=== PATIENT | male | born 1945 | race Caucasian/White ===

== ENCOUNTER 2017-07-17 17:31 | Inpatient (IN) ==
[2017-07-17] MEDS ORDERED: Ondansetron 4 MG/2 ML VIAL IVP PRN (22:14)
[2017-07-17] MEDS ORDERED: *HR* Metoprolol 5 MG/5 ML VIAL IVP PRN (22:27)
--- NOTE | 2017-07-17 22:30 | General Surg History&Physical ---
Date of Encounter: 07/17/17 Time of Encounter: 22:30 Assessment and Plan (1) Acute cholecystitis Current Visit: Yes Status: Acute 71M with acute cholecystitis; non peritoneal, but (+)jones's sign; - NPO -IVF: d51/2NS+20K - abx: zosyn - dilaudid for pain control - activity as tolerated - strict I/O The assessment and plan as outlined above was discussed with the patient and/or family members who expressed understanding and agreement. All questions were answered. (2) Cholelithiasis Current Visit: Yes Status: Acute see above The assessment and plan as outlined above was discussed with the patient and/or family members who expressed understanding and agreement. All questions were answered. 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 All questions were answered. Qualifiers: DVT location: lower extremity Affected thrombotic vein of extremity: unspecified vein of extremity Chronicity: unspecified Laterality: bilateral Qualified Code(s): I82.403 - Acute embolism and thrombosis of unspecified deep veins of lower extremity, bilateral (4) DVT prophylaxis Current Visit: Yes Status: Acute ambulation scds give heparin gtt once INR @ 1.5 The assessment and plan as outlined above was discussed with the patient and/or family members who expressed understanding and agreement. All questions were answered. (5) Crohns disease Current Visit: Yes Status: Acute consult GI for management of crohn's disease, specificallyi regarding timing of crohn's medications or if they should be restarted after this hospital admission ; The assessment and plan as outlined above was discussed with the patient and/or family members who expressed understanding and agreement. All questions were answered. Qualifiers: Gastrointestinal tract location: unspecified location Digestive disease complication type: without complication Qualified Code(s): K50.90 - Crohn's disease, unspecified, without complications (6) HTN (hypertension) Current Visit: Yes Status: Acute give IV lopressor 5mg q6; give for SBP >150, hold for SBP <100, HR <60 The assessment and plan as outlined above was discussed with the patient and/or family members who expressed understanding and agreement. All questions were answered. Qualifiers: Hypertension type: essential hypertension Qualified Code(s): I10 - Essential (primary) hypertension (7) HLD (hyperlipidemia) Current Visit: Yes Status: Acute restart home meds The assessment and plan as outlined above was discussed with the patient and/or family members who expressed understanding and agreement. All questions were answered. Qualifiers: Hyperlipidemia type: unspecified Qualified Code(s): E78.5 - Hyperlipidemia , unspecified History of Present Illness Chief complaint: abdominal pain HPI: Mr. Bowers is a 71 year old male with PMH significant for DVT, HTN, HLD who presents with a week history of worsening abdominal pain localized to the epigastrium and RUQ. The pain has been ongoing without nausea or vomiting, but it is associated with anorexia. He is unable to identify any alleviating or exacerbating factors. No reports of fevers, chills, shortness of breath or chest pain. His last bowel movement was one day prior to admission. He cannot recall a prior episode like this. A Ct scan was ordered which was personally reviewed and interpreted by me. There are inflammatory changes around the gallbladder and cholelithiasis. Past Med Surg Social Fam HX - Past Medical History Medical history: DVT (multiple episodes requiring coumadin), hyperlipidemia, hypertension, other (Crohn's disease) Psychiatric history: no psych history - Past Surgical History Surgical History: no surgical history, other (multiple small bowel resections 2/ 2 crohn's disease) - Social History Smoking Status: Never smoker Smokeless Tobacco Status: No Alcohol use: none Drug use: none - Additional Family History Additional family history: non contributory Medications and Allergies Alendronate Sodium [Fosamax] 70 mg PO QWEEK 07/01/17 [History] Alendronate Sodium [Fosamax] 70 mg PO QWEEK 07/01/17 [History] Atorvastatin [Lipitor] 40 mg PO HS 07/01/17 [History] Budesonide [Entocort EC] 3 mg PO 07/01/17 [History] Cyanocobalamin (B-12) [Vitamin B12] 1,000 mcg IM 07/01/17 [History] InFLIXimab [Remicade] 100 mg IVPB 07/01/17 [History] Lisinopril-HCTZ 10-12.5 [Prinzide 10-12.5] 1 each PO 07/01/17 [History] Metoprolol Succinate 25 mg PO 07/01/17 [History] Multivit-Min/FA/Lycopen/Lutein [A Thru Z Select Multivit Tab] 1 each PO [History] Potassium Chloride [Klor-Con 10] 10 meq PO 07/01/17 [History] Ranitidine HCl [Zantac] 150 mg PO 07/01/17 [History] Warfarin [Coumadin] 2.5 mg PO 07/01/17 [History] 3 Allergy/AdvReac Type Severity Reaction Status Date / Time No Known Allergies Allergy Verified 07/01/17 13:44 Review of Systems All systems PM: A 10-system review of systems was performed and is negative for pertinent findings except as documented above in the HPI. General Surgery Exam pending - General physical appearance well developed, well nourished, no distress - Eyes other (no scleral icterus) - ENT normocephalic - Neck no lymphadectomy - Respiratory normal expansion, normal respiratory effort, clear to auscultation - Cardiovascular Cardiovascular exam: Present: RRR - Abdomen Abdomen general surgery: Present: soft, tender (non peritoneal; ) Abdominal Tenderness: Present: epigastic, RUQ ((+)jones's sign) Hernia: Present: none - Neurologic Present: CN 2-12 grossly intact - Psychiatric Psychiatric general surgery: Present: A&Ox3 Results - Labs All other labs normal. - Imaging CT scan - abdomen: report reviewed, image reviewed ((+)cholelithiasis, inflammatory changes aroudn gallbladder; no evidence of biliary duct dilitation) CT scan - pelvis: report reviewed, image reviewed
[2017-07-17] MEDS: *HR* HYDROmorphone (PF) 1 MG/ML SYRINGE IVP PRN (23:07)
[2017-07-17] MEDS: D5% in 0.45% NACL w KCl 20 MEQ/1,000 ML MLS IVC SCH (23:10)
[2017-07-17] MEDS: Piperacillin/Tazobactam 3.375 GM in D5% in Water (Mini-Bag+) 100 ML IVPB SCH (23:17)
[2017-07-18 00:08] LABS: INR 3.8; Prothrombin Time 41.9 Seconds (9.4-12.1)
[2017-07-18] MEDS ORDERED: 0.9 % Sodium Chloride 250 ML ONE ×4 (01:17→16:32)
[2017-07-18] MEDS: *HR* HYDROmorphone (PF) 1 MG/ML SYRINGE IVP PRN ×4 (02:36→23:19)
[2017-07-18 05:06] LABS: Basophils % 0.3 %; Eosinophils % 0.2 %; Hematocrit 42.5 % (37.5-50.1); Hemoglobin 13.7 g/dL (12.9-16.9); Immature Granulocytes % 0.8 % (0-4); Lymphocytes # 0.9 K/mcL (0.6-4.6); Lymphocytes % 7.8 %; Mean Corpuscular HGB Conc 32.2 g/dL (31.6-35.5); Mean Corpuscular Hemoglobin 29.2 pg (28.0-33.3); Mean Corpuscular Volume 90.6 fL (83.0-100.0); Mean Platelet Volume 9.9 fL (9.4-12.4); Monocytes # 1.8 K/mcL (0.0-1.3); Monocytes % 14.8 %; Platelet Count 217 K/mcL (140-400); Red Blood Count 4.69 M/mcL (4.19-5.50); Red Cell Distribution Width 14.3 % (11.5-14.5); Segmented Neutrophils % 76.1 %
[2017-07-18 05:20] LABS: Albumin 2.9 g/dL (3.5-5.0); Albumin/Globulin Ratio 0.6 (1.1-2.2); Bilirubin,Direct 2.8 mg/dL (0.0-0.5); Bilirubin,Indirect 1.1 mg/dL (0.0-1.2); Bilirubin,Total 3.9 mg/dL (0.2-1.2); Globulin 4.6 g/dL (2.4-3.5); Total Protein 7.5 g/dL (6.0-8.3)
[2017-07-18] MEDS: Pantoprazole 40 MG VIAL IVP SCH (06:53)
[2017-07-18 08:18] LABS: INR 2.2; Prothrombin Time 24.1 Seconds (9.4-12.1)
[2017-07-18] MEDS: Piperacillin/Tazobactam 3.375 GM in D5% in Water (Mini-Bag+) 100 ML IVPB SCH ×2 (09:55→20:12)
[2017-07-18] MEDS: D5% in 0.45% NACL w KCl 20 MEQ/1,000 ML MLS IVC SCH (09:56)
[2017-07-18 10:44] LABS: INR 2.1; Prothrombin Time 22.8 Seconds (9.4-12.1)
[2017-07-18] MEDS ORDERED: Furosemide 40 MG/4 ML VIAL IVP ONE (11:37)
--- NOTE | 2017-07-18 12:12 | General Surgery Progress Note ---
<Gianna Toro - Last Filed: 07/18/17 13:17> Date of Encounter: 07/18/17 Time of Encounter: 12:09 - Assessment and Plan (1) Acute cholecystitis Current Visit: Yes Status: Acute Patient is complaining of right upper quadrant pain and nausea and vomiting. WBC = 11.8, Tbili = 3.9, AST 338, aLT 218, Alk phos 271. CT scan of abdomen and pelvis showed cholelithiasis and distended gallbladder. Patient has been afebrile but tachycardic and blood pressure has been elevated maximum of 175/ 103. Plans for cholecystectomy when INR decreases to ~ 1.5. INR = 2.1. Currently giving FFP to decrease INR. Cardiovascular risk: He denies shortness of breath or chest pain with climbing 2 flights of stairs or walking two blocks. METs>4. Patient has no known cardiovascular disease. Stress test 3- 4 years ago was negative. Plans: - RUQ US pending results - IVF: d51/2NS+20K - abx: zosyn - dilaudid for pain control - activity as tolerated - strict I/O - surgery pending INR decrease (2) Cholelithiasis Current Visit: Yes Status: Acute See above Qualifiers: Cholelithiasis location: gallbladder Cholecystitis presence: with cholecystitis Cholecystitis acuity: acute Biliary obstruction: without biliary obstruction Qualified Code(s): K80.00 - Calculus of gallbladder with acute cholecystitis without obstruction (3) DVT (deep venous thrombosis) Current Visit: Yes Status: Acute Prior histry of DVTs on coumadin. Plan: - holding coumadin - give FFP; aim for INR ~ 1.5 - start heparin once at goal - will plan to hold heparin 4-6 hours prior to surgery - SCDs Qualifiers: DVT location: lower extremity Affected thrombotic vein of extremity: unspecified vein of extremity Chronicity: unspecified Laterality: bilateral Qualified Code(s): I82.403 - Acute embolism and thrombosis of unspecified deep veins of lower extremity, bilateral (4) DVT prophylaxis Current Visit: Yes Status: Acute ambulation, scds, give heparin gtt once INR @ 1.5 (5) Crohns disease Current Visit: Yes Status: Acute consult GI for management of crohn's disease, specifically regarding timing of crohn's medications or if they should be restarted after this hospital admission. Qualifiers: Gastrointestinal tract location: unspecified location Digestive disease complication type: without complication Qualified Code(s): K50.90 - Crohn's disease, unspecified, without complications (6) HTN (hypertension) Current Visit: Yes Status: Acute give IV lopressor 5mg q6; give for SBP >150, hold for SBP <100, HR <60 Qualifiers: Hypertension type: essential hypertension Qualified Code(s): I10 - Essential (primary) hypertension (7) HLD (hyperlipidemia) Current Visit: Yes Status: Acute restart home meds Qualifiers: Hyperlipidemia type: unspecified Qualified Code(s): E78.5 - Hyperlipidemia , unspecified Subjective Narrative: Patient is a 71-year-old male presented to the ED with right upper quadrant pain and nausea and vomiting and found to have acute cholecystitis. Today patient is still having nausea and vomiting. During his RUQ ultrasound this morning, he had an episode of emesis. Currently patient's pain is under control. Objective Vital Signs - Last 8 Hours Temp Pulse Resp BP Pulse Ox 07/18/17 10:50 99.3 F 109 17 153/92 93 07/18/17 09:44 109 07/18/17 09:42 99.4 F 20 142/75 94 07/18/17 07:42 99.3 F 87 17 175/103 95 07/18/17 06:16 98.9 F Intake and Output 07/17/17 07/18/17 07/18/17 23:59 07:59 15:59 Intake Total 250 / 250 850 / 850 1250 / 1250 Output Total 825 / 825 0 / 0 0 / 0 Balance -575 / -575 850 / 850 1250 / 1250 Intake: IV Fluids 100 / 100 1000 / 1000 KCl 20mEq IN D5%-0.45 NACL 20 1000 / 1000 meq In 1,000 ml @ 100 mls/hr IVC .Q10H [facility] Rx#:[id number] Zosyn 3.375 GM In Dextrose 5% ( 100 / 100 Minibag+) 100 ML 100 ML @ 25 mls/hr IVPB Q8HR [facility] Rx#: [id number] Oral 0 / 0 0 / 0 0 / 0 Blood Product 750 / 750 250 / 250 Plasma Unit [id number] 500 / 500 Plasma Unit [id number] 250 / 250 250 / 250 Intake, Autotransfusion Amount 250 / 250 Output: Urine 825 / 825 0 / 0 0 / 0 Stool 0 / 0 Other: Weight 81.9 kg 82.185 kg Blood Glucose* 131 172 Patient Weight 07/18/17 23:59 Weight 82.185 kg - Additional Exam Constitutional: Alert, in no acute distress, well nourished, well developed. Head: Normocephalic, atraumatic, normal contour and symmetric, no masses, lesions or scars Heart: Normal, regular rate and rhythm, no murmurs Lungs: Clear to auscultation, no wheezes, rales, or rhonchi Abdomen: RUQ pain, + jones's sign, non-tender in other quadrants, Soft, nondistended, and no masses palpable, bowel sounds present and normal, no guarding or rigidity. Extremities: No clubbing, cyanosis, or edema, radial pulse +2/4, capillary refill <2sec. Skin: Skin warm and dry, no lesions, no rashes, no jaundice Neurologic: Cranial nerves II through XII grossly intact, no focal deficits, strength within normal limits in all extremities Psych: Cooperative with exam, good eye contact, cognitive function intact, judgment good insight good, speech clear, thought process logical, and goal directed - Labs 07/18/17 04:44 Diabetes panel 07/18/17 Range/Units 04:44 AST 338 H (5-34) Units/L ALT 218 H (0-55) Units/L Alkaline Phosphatase 271 H (38-126) Units/L Albumin 2.9 L (3.5-5.0) g/dL Calcium panel 07/18/17 Range/Units 04:44 Albumin 2.9 L (3.5-5.0) g/dL Adrenal panel 07/18/17 Range/Units 04:44 Total Bilirubin 3.9 H D (0.2-1.2) mg/dL AST 338 H (5-34) Units/L ALT 218 H (0-55) Units/L Alkaline Phosphatase 271 H (38-126) Units/L Albumin 2.9 L (3.5-5.0) g/dL Consult Discharge Plan - Plan Referrals: Nicolas Hagan MD [Primary Care Provider] - <Blu Sawyer - Last Filed: 07/19/17 08:12> Date of Encounter: 07/19/17 - Assessment and Plan (1) Acute cholecystitis Current Visit: Yes Status: Inactive (2) Cholelithiasis Current Visit: Yes Status: Inactive Qualifiers: Cholelithiasis location: gallbladder Cholecystitis presence: with cholecystitis Cholecystitis acuity: acute Biliary obstruction: without biliary obstruction Qualified Code(s): K80.00 - Calculus of gallbladder with acute cholecystitis without obstruction (3) DVT (deep venous thrombosis) Current Visit: Yes Status: Acute Qualifiers: DVT location: lower extremity Affected thrombotic vein of extremity: unspecified vein of extremity Chronicity: unspecified Laterality: bilateral Qualified Code(s): I82.403 - Acute embolism and thrombosis of unspecified deep veins of lower extremity, bilateral (4) DVT prophylaxis Current Visit: Yes Status: Acute (5) Crohns disease Current Visit: Yes Status: Acute Qualifiers: Gastrointestinal tract location: unspecified location Digestive disease complication type: without complication Qualified Code(s): K50.90 - Crohn's disease, unspecified, without complications (6) HTN (hypertension) Current Visit: Yes Status: Acute Qualifiers: Hypertension type: essential hypertension Qualified Code(s): I10 - Essential (primary) hypertension (7) HLD (hyperlipidemia) Current Visit: Yes Status: Acute Qualifiers: Hyperlipidemia type: unspecified Qualified Code(s): E78.5 - Hyperlipidemia , unspecified Objective Vital Signs - Last 8 Hours Temp Pulse Resp BP Pulse Ox 07/19/17 06:45 98.2 F 84 18 138/73 94 07/19/17 03:30 98.1 F 91 18 148/81 93 Intake and Output 07/18/17 07/19/17 07/19/17 23:59 07:59 15:59 Intake Total 1500 / 1500 100 / 100 Output Total 300 / 300 0 / 0 Balance 1200 / 1200 100 / 100 Intake: IV Fluids 1000 / 1000 100 / 100 KCl 20mEq IN D5%-0.45 NACL 20 1000 / 1000 meq In 1,000 ml @ 100 mls/hr IVC .Q10H [facility] Rx#:[id number] Zosyn 3.375 GM In Dextrose 5% ( 100 / 100 Minibag+) 100 ML 100 ML @ 25 mls/hr IVPB Q8H [facility] Rx#: [id number] Oral 0 / 0 0 / 0 Blood Product 500 / 500 Plasma Unit [id number] 250 / 250 Plasma Unit [id number] 250 / 250 Output: Urine 300 / 300 0 / 0 Other: Meal NPO Weight 80.286 kg Blood Glucose* 166 155 Patient Weight 07/19/17 23:59 Weight 80.286 kg - Labs 07/18/17 04:44 07/18/17 17:40 Diabetes panel 07/18/17 Range/Units 17:40 Sodium 141 (136-145) mEq/L Potassium 3.5 (3.5-4.5) mEq/L Chloride 100 (98-109) mEq/L Carbon Dioxide 29 (19-29) mEq/L BUN 15 (8-26) mg/dL Creatinine 1.46 H (0.72-1.25) mg/dL Glucose 145 H (70-99) mg/dL Calcium 9.5 (8.6-10.8) mg/dL Calcium panel 07/18/17 Range/Units 17:40 Calcium 9.5 (8.6-10.8) mg/dL Pituitary panel 07/18/17 Range/Units 17:40 Sodium 141 (136-145) mEq/L Potassium 3.5 (3.5-4.5) mEq/L Chloride 100 (98-109) mEq/L Carbon Dioxide 29 (19-29) mEq/L BUN 15 (8-26) mg/dL Creatinine 1.46 H (0.72-1.25) mg/dL Glucose 145 H (70-99) mg/dL Calcium 9.5 (8.6-10.8) mg/dL Adrenal panel 07/18/17 Range/Units 17:40 Sodium 141 (136-145) mEq/L Potassium 3.5 (3.5-4.5) mEq/L Chloride 100 (98-109) mEq/L Carbon Dioxide 29 (19-29) mEq/L BUN 15 (8-26) mg/dL Creatinine 1.46 H (0.72-1.25) mg/dL Glucose 145 H (70-99) mg/dL Calcium 9.5 (8.6-10.8) mg/dL - Attending Attestation I have personally seen and examined the patient. I have reviewed pertinent labs , imaging, progress notes, including this one. I agree with the above assessment and plan and wish to include the following... 71M with PMH significant DVT on coumadin, crohn's disease and on medication related to disease with acute cholecystitis; Abdomen is soft, non distended, but with discomfort at epigastric region. non peritoneal on exam; INR still within therapeutic range; will give more FFP; once patient is below two, then can switch to heparin gtt; will allow patient to drift to 1.7 before scheduling a definitive surgery date; will also contact GI concerning timing of crohn's medications or if it is okay to hold them for time being;
[2017-07-18] MEDS ORDERED: Ondansetron 4 MG/2 ML VIAL IVP ONE (14:58)
[2017-07-18] MEDS ORDERED: *HR* Promethazine 25 MG/ML VIAL IVP PRN (14:58)
[2017-07-18] MEDS: Ondansetron 4 MG/2 ML VIAL IVP SCH ×2 (17:45→20:13)
[2017-07-18 18:03] LABS: Prothrombin Time 21.6 Seconds (9.4-12.1)
[2017-07-18 18:12] LABS: Calcium 9.5 mg/dL (8.6-10.8); Potassium 3.5 mEq/L (3.5-4.5)
[2017-07-18 22:06] LABS: Prothrombin Time 21.6 Seconds (9.4-12.1)
[2017-07-19] MEDS: Ondansetron 4 MG/2 ML VIAL IVP SCH ×8 (00:11→23:20)
[2017-07-19] MEDS: Piperacillin/Tazobactam 3.375 GM in D5% in Water (Mini-Bag+) 100 ML IVPB SCH ×2 (03:29→10:34)
[2017-07-19] MEDS: D5% in 0.45% NACL w KCl 20 MEQ/1,000 ML MLS IVC SCH ×2 (04:16→21:42)
[2017-07-19] MEDS: Pantoprazole 40 MG VIAL IVP SCH (05:34)
[2017-07-19 09:09] LABS: Basophils % 0.3 %; Eosinophils # 0.1 K/mcL (0.0-0.6); Eosinophils % 1.5 %; Hematocrit 34.6 % (37.5-50.1); Immature Granulocytes % 0.5 % (0-4); Lymphocytes # 0.8 K/mcL (0.6-4.6); Mean Corpuscular HGB Conc 32.9 g/dL (31.6-35.5); Mean Corpuscular Hemoglobin 30.6 pg (28.0-33.3); Mean Corpuscular Volume 92.8 fL (83.0-100.0); Platelet Count 177 K/mcL (140-400); Red Blood Count 3.73 M/mcL (4.19-5.50); Red Cell Distribution Width 14.1 % (11.5-14.5); Segmented Neutrophils % 74.7 %
[2017-07-19 09:13] LABS: Hemoglobin 11.4 g/dL (12.9-16.9)
[2017-07-19 09:21] LABS: Albumin 2.5 g/dL (3.5-5.0); Albumin/Globulin Ratio 0.6 (1.1-2.2); Bilirubin,Total 3.1 mg/dL (0.2-1.2); Calcium 8.6 mg/dL (8.6-10.8); Globulin 4.3 g/dL (2.4-3.5); Potassium 3.2 mEq/L (3.5-4.5); Total Protein 6.8 g/dL (6.0-8.3)
[2017-07-19 09:23] LABS: INR 2.3; Prothrombin Time 24.7 Seconds (9.4-12.1)
--- NOTE | 2017-07-19 10:55 | Gastroenterology Consult Note ---
<Marycruz Hernández - Last Filed: 07/19/17 11:45> Date of Encounter: 07/19/17 Time of Encounter: 10:00 - Assessment and plan (1) Crohns disease Current Visit: Yes Status: Acute Assessment and plan: Pt has long standing history of Crohn's disease, status post bowel resection x 2 (last 1996). He is on remicaide and entocort at home and has been well controlled. He denies recent flares. He is followed by Dr Salter at [facility]. Would continue home meds. Qualifiers: Gastrointestinal tract location: unspecified location Digestive disease complication type: without complication Qualified Code(s): K50.90 - Crohn's disease, unspecified, without complications (2) Cholelithiasis Current Visit: Yes Status: Acute Assessment and plan: Surgery consulted awaiting INR <2. Bilirubin is elevated 3.9 as is AST and ALT will order MRCP, may need ERCP if CBD stone. Qualifiers: Cholelithiasis location: gallbladder Cholecystitis presence: with cholecystitis Cholecystitis acuity: acute Biliary obstruction: without biliary obstruction Qualified Code(s): K80.00 - Calculus of gallbladder with acute cholecystitis without obstruction - Time Spent With Patient Total time spent is greater than 50% in coordination of care (as documented) at patient's floor/unit and/or counseling patient: GI History of Present Illness - Data of Consult Patient: new to practice Consult date: 07/19/17 Requesting Physician: Blu Sawyer MD - Consult Narrative Reason for consult: Crohn's History of present illness: Mr. Bowers is a 71 year old male who presented with complaints of right upper quadrant pain and nausea and vomiting. CT scan of abdomen and pelvis showed cholelithiasis and distended gallbladder. Ultrasound showed cholelithiasis. General surgery was consulted for cholecystectomy, waiting for INR to drop around 1.5. He is on coumadin for a history of DVTs. WBC= 11.8, Tbili = 3.9, AST 338, aLT 218, Alk phos 271. He has Crohn's treated by Dr Salter. He is on Remicade, last dose 6 weeks ago, and entocort. He denies any recent flares. He reports 2-3 bm daily but none since Tuesday. He denies any bloody or black stools. He denies any fever. He uses zantac prn for GERD, denies any dysphagia. Colonoscopy: 2010 ([facility]) EGD: denies NSAIDS/ASA: rarely takes prn Anticoagulants: none Past Med Surg Social Fam HX - Past Medical History Medical history: DVT, hyperlipidemia, hypertension, other Psychiatric history: no psych history - Past Surgical History Surgical History: no surgical history, other - Social History Smoking Status: Never smoker Smokeless Tobacco Status: No Alcohol use: none Drug use: none - Family History Mother Adopted: No Family Member Ethnicity: Non- Living Status: Age at : 79 Hx Family Cardiac Disorders: Yes (hypertension) Hx Family Respiratory Disorders: No Hx Family Cancer: No Hx Family GI Disorders: No Hx Family Genitourinary Disorders: No Hx Family Endocrine Disorder: No Hx Family Musculoskeletal Disorders: No Hx Family Neuromuscular Disorders: No Hx Family Neurologic Disorders: No Hx Family HEENT Disorders: No Hx Family Autoimmune Disorders: No Hx Family Reproductive Disorders: No Hx Family Psychosocial Disorders: No Hx Family Medical Disorders: No Father Adopted: No Family Member Ethnicity: Non- Living Status: Age at : 65 Cause of : heart attack Hx Family Cardiac Disorders: Yes Hx Family Respiratory Disorders: No Hx Family Cancer: No Hx Family GI Disorders: No Hx Family Genitourinary Disorders: No Hx Family Endocrine Disorder: No Hx Family Musculoskeletal Disorders: No Hx Family Neuromuscular Disorders: No Hx Family Neurologic Disorders: No Hx Family HEENT Disorders: No Hx Family Autoimmune Disorders: No Hx Family Reproductive Disorders: No Hx Family Psychosocial Disorders: No Hx Family Medical Disorders: No Review of Systems: GI: as per [place] GENERAL: denies fever, or chills EYES: denies yellow discoloration ENT: denies pain with swallowing or difficulty swallowing CARDIO: denies chest pain, palpitations RESP: No Shortness of breath with exertion : denies change in color of urine NEURO: denies any weakness HEME: Denies any bruising MS: chronic joint pain . DERM: denies rash or itching PSYCH: Denies history of anxiety or depression - Constitutional Vitals: Temp Pulse Resp BP Pulse Ox 98.1 F 87 14 126/69 95 07/19/17 10:19 07/19/17 10:19 07/19/17 10:19 07/19/17 10:19 07/19/17 10:19 Exam: CONSTITUTIONAL:~alert, no acute distress.~HEAD:~normocephalic.~EYES:~no jaundice.~NECK:~no obvious swelling.~HEART:~regular rate and rhythm, no murmurs. ~LUNGS:~bilateral good air entry.~ABDOMEN:~non distended, soft, diffuse tenderness, exquisite RUQ tenderness, no masses pulpable, no organomegaly.~ RECTAL EXAM:~Deferred.~EXTREMITIES:~no clubbing, cyanosis or edema.~SKIN:~no stigmata of chronic liver disease.~NEUROLOGIC:~no obvious focal defect.~~~~ Results - Labs CBC & Chem 7: 07/19/17 08:56 07/19/17 08:56 Labs: Last Result Calcium 8.6 mg/dL (8.6-10.8) 07/19/17 08:56 Entire Visit Hgb 11.4 g/dL (12.9-16.9) L D 07/19/17 08:56 Hct 34.6 % (37.5-50.1) L 07/19/17 08:56 PT 24.7 Seconds (9.4-12.1) H 07/19/17 08:56 Total Bilirubin 3.1 mg/dL (0.2-1.2) H 07/19/17 08:56 AST 354 Units/L (5-34) H 07/19/17 08:56 ALT 244 Units/L (0-55) H 07/19/17 08:56 - ABG ABG results: PT/INR, D-dimer PT 24.7 Seconds (9.4-12.1) H 07/19/17 08:56 - Impressions Impressions Gallbladder Ultrasound 07/18/17 11:00 IMPRESSION: Sonographic findings are suggestive of acute cholecystitis. Hepatic steatosis. D/ / Lennox Castellon / Lennox Castellon Interpreting Provider: Lennox Castellon Consult Discharge Plan - Plan Referrals: Nicolas Hagan MD [Primary Care Provider] - <Landen Hutchinson - Last Filed: 07/20/17 11:58> Date of Encounter: 07/20/17 - Time Spent With Patient Total time spent is greater than 50% in coordination of care (as documented) at patient's floor/unit and/or counseling patient: GI History of Present Illness - Data of Consult Requesting Physician: Blu Sawyer MD - Consult Narrative History of present illness: Mr. Bowers is a 71 year old male - Constitutional Vitals: Temp Pulse Resp BP Pulse Ox 98.7 F 80 16 143/79 95 07/20/17 11:00 07/20/17 07:03 07/20/17 11:00 07/20/17 11:00 07/20/17 11:00 Results - Labs CBC & Chem 7: 07/20/17 01:41 07/20/17 01:41 Labs: Last Result Calcium 8.5 mg/dL (8.6-10.8) L 07/20/17 01:41 Entire Visit Hgb 10.5 g/dL (12.9-16.9) L 07/20/17 01:41 Hct 32.3 % (37.5-50.1) L 07/20/17 01:41 PT 12.9 Seconds (9.4-12.1) H 07/20/17 01:41 Total Bilirubin 4.0 mg/dL (0.2-1.2) H 07/20/17 01:41 AST 291 Units/L (5-34) H 07/20/17 01:41 ALT 217 Units/L (0-55) H 07/20/17 01:41 - ABG ABG results: PT/INR, D-dimer PT 12.9 Seconds (9.4-12.1) H 07/20/17 01:41 - Impressions Impressions Abdomen MRI 07/19/17 11:42 IMPRESSION: 1. MRI findings continue to be consistent with acute cholecystitis as seen on CT dated 07/17/2017 and ultrasound dated 07/18/2017. Multiple stones are seen. Additionally, intrinsic high T1 signal intensity within the gallbladder is present which may represent hemorrhagic products. 2. No intra or extrahepatic biliary dilatation. No choledocholithiasis. 3. Trace right effusion. 4. Hepatic steatosis. D/ / 07/19/2017 14:15:20 Aimee Long MD / Vannessa Peck Interpreting Provider: Aimee Long MD - Attending Attestation Mr. Bowers presents with severe epigastric and now RUQ pain also past 3 days. The pain has abated this morning and patient has been NPO here. CT scan reveals a distended gallbladder with several stones. CBD normal on the slices seen. Patient has intrinsic liver disease - fatty liver suggested on CT but, patient has hx of alcohol in his younger years and given diabetes could have other liver diseases such as AIH etc. The elevated liver enzymes are due to the cholecystitis as we had ordered an MRCP and this revealed normal duct. There is no indication to do an ERCP at this time. An intraoperative cholangiogram can be done at [facility]. Will also need to have a liver biopsy done at cholecystectomy for diagnostic and prognostic purposes. Discussed this with patient and his . I attest that I personally interviewed and examined Mr. Bowers and reviewed his CT as well as MRCP studies Landen Hutchinson MD
--- NOTE | 2017-07-19 12:11 | General Surgery Progress Note ---
<Leticia Casillas - Last Filed: 07/19/17 12:09> Date of Encounter: 07/19/17 Time of Encounter: 12:00 - Assessment and Plan (1) Acute cholecystitis Current Visit: Yes Status: Acute RUQ pain remains. No n/v today. INR remains elevated at 2.3 despite 4 units of FFP. Total billiruben has increased. GI is now following for Crohn's and possible ERCP. Will plan for lap leann later this week pending clinical course. Plans: - IVF: d51/2NS+20K - abx: zosyn - dilaudid for pain control - activity as tolerated - strict I/O - GI eval and treat -transfuse 2 units FFP and give vitamin K. When INR is at 2.0 will begin therapeutic heparin infusion. -surgery pending INR decrease (2) Cholelithiasis Current Visit: Yes Status: Acute See above Qualifiers: Cholelithiasis location: gallbladder Cholecystitis presence: with cholecystitis Cholecystitis acuity: acute Biliary obstruction: without biliary obstruction Qualified Code(s): K80.00 - Calculus of gallbladder with acute cholecystitis without obstruction (3) DVT prophylaxis Current Visit: Yes Status: Acute See above (4) Crohns disease Current Visit: Yes Status: Acute See above Qualifiers: Gastrointestinal tract location: unspecified location Digestive disease complication type: without complication Qualified Code(s): K50.90 - Crohn's disease, unspecified, without complications Subjective Patient reports: no new complaints, feels better, still having pain, pain is less, voiding w/o difficulty, flatus, no bowel movement, afebrile Objective Vital Signs - Last 8 Hours Temp Pulse Resp BP Pulse Ox 07/19/17 10:19 98.1 F 87 14 126/69 95 07/19/17 06:45 98.2 F 84 18 138/73 94 Intake and Output 07/18/17 07/19/17 07/19/17 23:59 07:59 15:59 Intake Total 1500 / 1500 100 / 100 100 / 100 Output Total 300 / 300 0 / 0 0 / 0 Balance 1200 / 1200 100 / 100 100 / 100 Intake: IV Fluids 1000 / 1000 100 / 100 100 / 100 KCl 20mEq IN D5%-0.45 NACL 20 1000 / 1000 meq In 1,000 ml @ 100 mls/hr IVC .Q10H [facility] Rx#:[id number] Zosyn 3.375 GM In Dextrose 5% ( 100 / 100 100 / 100 Minibag+) 100 ML 100 ML @ 25 mls/hr IVPB Q8H [facility] Rx#: [id number] Oral 0 / 0 0 / 0 0 / 0 Blood Product 500 / 500 Plasma Unit [id number] 250 / 250 Plasma Unit [id number] 250 / 250 Output: Urine 300 / 300 0 / 0 0 / 0 Other: Meal NPO NPO Weight 80.286 kg Blood Glucose* 166 155 129 Patient Weight 07/19/17 23:59 Weight 80.286 kg - General physical appearance well nourished, no distress, moderate pain, jaundice - Eyes normal ocular movement - ENT atraumatic, normocephalic - Neck Neck exam: trachea midline - Respiratory normal expansion, normal respiratory effort, clear to auscultation - Cardiovascular Cardiovascular exam: Present: RRR, no murmurs/rubs/gallops - Abdomen Abdomen: Present: bowel sounds present, soft, tender Abdominal Tenderness: diffusely - Integumentary no rash, no growths - Neurologic CN 2-12 grossly intact, normal coordination, normal sensation - Musculoskeletal normal gait, normal posture - Psychiatric oriented to time, oriented to person, oriented to place, speech is normal, memory intact - Labs 07/19/17 08:56 07/19/17 08:56 Diabetes panel 07/18/17 07/19/17 Range/Units 17:40 08:56 Sodium 141 139 (136-145) mEq/L Potassium 3.5 3.2 L (3.5-4.5) mEq/L Chloride 100 102 (98-109) mEq/L Carbon Dioxide 29 29 (19-29) mEq/L BUN 15 15 (8-26) mg/dL Creatinine 1.46 H 1.44 H (0.72-1.25) mg/dL Glucose 145 H 136 H (70-99) mg/dL Calcium 9.5 8.6 (8.6-10.8) mg/dL AST 354 H (5-34) Units/L ALT 244 H (0-55) Units/L Alkaline Phosphatase 261 H (38-126) Units/L Albumin 2.5 L (3.5-5.0) g/dL Calcium panel 07/18/17 07/19/17 Range/Units 17:40 08:56 Calcium 9.5 8.6 (8.6-10.8) mg/dL Albumin 2.5 L (3.5-5.0) g/dL Pituitary panel 07/18/17 07/19/17 Range/Units 17:40 08:56 Sodium 141 139 (136-145) mEq/L Potassium 3.5 3.2 L (3.5-4.5) mEq/L Chloride 100 102 (98-109) mEq/L Carbon Dioxide 29 29 (19-29) mEq/L BUN 15 15 (8-26) mg/dL Creatinine 1.46 H 1.44 H (0.72-1.25) mg/dL Glucose 145 H 136 H (70-99) mg/dL Calcium 9.5 8.6 (8.6-10.8) mg/dL Adrenal panel 07/18/17 07/19/17 Range/Units 17:40 08:56 Sodium 141 139 (136-145) mEq/L Potassium 3.5 3.2 L (3.5-4.5) mEq/L Chloride 100 102 (98-109) mEq/L Carbon Dioxide 29 29 (19-29) mEq/L BUN 15 15 (8-26) mg/dL Creatinine 1.46 H 1.44 H (0.72-1.25) mg/dL Glucose 145 H 136 H (70-99) mg/dL Calcium 9.5 8.6 (8.6-10.8) mg/dL Total Bilirubin 3.1 H (0.2-1.2) mg/dL AST 354 H (5-34) Units/L ALT 244 H (0-55) Units/L Alkaline Phosphatase 261 H (38-126) Units/L Albumin 2.5 L (3.5-5.0) g/dL - VTE Documentation of Mechanical Device: Intermittent pneumatic compression device Consult Discharge Plan - Plan Referrals: Nicolas Hagan MD [Primary Care Provider] - <Blu Sawyer - Last Filed: 07/19/17 15:14> Date of Encounter: 07/19/17 - Assessment and Plan (1) Acute cholecystitis Current Visit: Yes Status: Inactive (2) Cholelithiasis Current Visit: Yes Status: Inactive Qualifiers: Cholelithiasis location: gallbladder Cholecystitis presence: with cholecystitis Cholecystitis acuity: acute Biliary obstruction: without biliary obstruction Qualified Code(s): K80.00 - Calculus of gallbladder with acute cholecystitis without obstruction (3) DVT (deep venous thrombosis) Current Visit: Yes Status: Acute Qualifiers: DVT location: lower extremity Affected thrombotic vein of extremity: unspecified vein of extremity Chronicity: unspecified Laterality: bilateral Qualified Code(s): I82.403 - Acute embolism and thrombosis of unspecified deep veins of lower extremity, bilateral (4) DVT prophylaxis Current Visit: Yes Status: Acute (5) Crohns disease Current Visit: Yes Status: Acute Qualifiers: Gastrointestinal tract location: unspecified location Digestive disease complication type: without complication Qualified Code(s): K50.90 - Crohn's disease, unspecified, without complications (6) HTN (hypertension) Current Visit: Yes Status: Acute Qualifiers: Hypertension type: essential hypertension Qualified Code(s): I10 - Essential (primary) hypertension (7) HLD (hyperlipidemia) Current Visit: Yes Status: Acute Qualifiers: Hyperlipidemia type: unspecified Qualified Code(s): E78.5 - Hyperlipidemia , unspecified Objective Vital Signs - Last 8 Hours Temp Pulse Resp BP Pulse Ox 07/19/17 14:55 99.1 F 85 16 144/78 94 07/19/17 14:40 98.9 F 84 16 142/80 93 07/19/17 14:25 98.7 F 85 14 136/71 93 07/19/17 10:19 98.1 F 87 14 126/69 95 Intake and Output 07/18/17 07/19/17 07/19/17 23:59 07:59 15:59 Intake Total 1500 / 1500 100 / 100 100 / 100 Output Total 300 / 300 0 / 0 0 / 0 Balance 1200 / 1200 100 / 100 100 / 100 Intake: IV Fluids 1000 / 1000 100 / 100 100 / 100 KCl 20mEq IN D5%-0.45 NACL 20 1000 / 1000 meq In 1,000 ml @ 100 mls/hr IVC .Q10H [facility] Rx#:[id number] Zosyn 3.375 GM In Dextrose 5% ( 100 / 100 100 / 100 Minibag+) 100 ML 100 ML @ 25 mls/hr IVPB Q8H [facility] Rx#: [id number] Oral 0 / 0 0 / 0 0 / 0 Blood Product 500 / 500 0 / 0 Plasma Unit [id number] 250 / 250 Plasma Unit [id number] 250 / 250 Plasma Unit [id number] 0 / 0 Output: Urine 300 / 300 0 / 0 0 / 0 Other: Meal NPO NPO Weight 80.286 kg Blood Glucose* 166 155 129 Patient Weight 07/19/17 23:59 Weight 80.286 kg - Labs 07/19/17 12:47 07/19/17 08:56 Diabetes panel 07/18/17 07/19/17 Range/Units 17:40 08:56 Sodium 141 139 (136-145) mEq/L Potassium 3.5 3.2 L (3.5-4.5) mEq/L Chloride 100 102 (98-109) mEq/L Carbon Dioxide 29 29 (19-29) mEq/L BUN 15 15 (8-26) mg/dL Creatinine 1.46 H 1.44 H (0.72-1.25) mg/dL Glucose 145 H 136 H (70-99) mg/dL Calcium 9.5 8.6 (8.6-10.8) mg/dL AST 354 H (5-34) Units/L ALT 244 H (0-55) Units/L Alkaline Phosphatase 261 H (38-126) Units/L Albumin 2.5 L (3.5-5.0) g/dL Calcium panel 07/18/17 07/19/17 Range/Units 17:40 08:56 Calcium 9.5 8.6 (8.6-10.8) mg/dL Albumin 2.5 L (3.5-5.0) g/dL Pituitary panel 07/18/17 07/19/17 Range/Units 17:40 08:56 Sodium 141 139 (136-145) mEq/L Potassium 3.5 3.2 L (3.5-4.5) mEq/L Chloride 100 102 (98-109) mEq/L Carbon Dioxide 29 29 (19-29) mEq/L BUN 15 15 (8-26) mg/dL Creatinine 1.46 H 1.44 H (0.72-1.25) mg/dL Glucose 145 H 136 H (70-99) mg/dL Calcium 9.5 8.6 (8.6-10.8) mg/dL Adrenal panel 07/18/17 07/19/17 Range/Units 17:40 08:56 Sodium 141 139 (136-145) mEq/L Potassium 3.5 3.2 L (3.5-4.5) mEq/L Chloride 100 102 (98-109) mEq/L Carbon Dioxide 29 29 (19-29) mEq/L BUN 15 15 (8-26) mg/dL Creatinine 1.46 H 1.44 H (0.72-1.25) mg/dL Glucose 145 H 136 H (70-99) mg/dL Calcium 9.5 8.6 (8.6-10.8) mg/dL Total Bilirubin 3.1 H (0.2-1.2) mg/dL AST 354 H (5-34) Units/L ALT 244 H (0-55) Units/L Alkaline Phosphatase 261 H (38-126) Units/L Albumin 2.5 L (3.5-5.0) g/dL - Attending Attestation I have personally seen and examined the patient. I have reviewed pertinent labs , imaging, progress notes, including this one. I agree with the above assessment and plan and wish to include the following... 71M who has acute cholecystitis; on coumadin for prior dvts; abdomen is soft, non peritoneal; currently undergoing reversal of INR; GI consulted due to labs suggesting CBD obstruction; will await decompression via ERCP prior to surgery
[2017-07-19 13:37] LABS: Basophils % 0.2 %; Eosinophils # 0.2 K/mcL (0.0-0.6); Eosinophils % 1.9 %; Hemoglobin 11.4 g/dL (12.9-16.9); Immature Granulocytes % 0.4 % (0-4); Lymphocytes # 0.9 K/mcL (0.6-4.6); Lymphocytes % 10.3 %; Mean Corpuscular HGB Conc 32.6 g/dL (31.6-35.5); Mean Corpuscular Hemoglobin 29.8 pg (28.0-33.3); Mean Corpuscular Volume 91.6 fL (83.0-100.0); Mean Platelet Volume 10.4 fL (9.4-12.4); Monocytes # 1.1 K/mcL (0.0-1.3); Monocytes % 13.1 %; Neutrophils # 6.3 K/mcL (1.6-8.9); Platelet Count 175 K/mcL (140-400); Red Blood Count 3.82 M/mcL (4.19-5.50); Red Cell Distribution Width 14.3 % (11.5-14.5); Segmented Neutrophils % 74.1 %
[2017-07-19] MEDS ORDERED: 0.9 % Sodium Chloride 250 ML ONE ×2 (14:35→17:04)
[2017-07-19] MEDS: *HR* HYDROmorphone (PF) 1 MG/ML SYRINGE IVP PRN ×2 (16:38→17:33)
[2017-07-19 19:24] LABS: INR 1.4; Prothrombin Time 15.5 Seconds (9.4-12.1)
[2017-07-19] MEDS ORDERED: Heparin 25,000 UNIT/500 ML D5W 25,000 UNIT/500 ML MLS IVC SCH (20:18)
--- NOTE | 2017-07-19 20:32 | Anesthesia Evaluation PreOp ---
Date of Encounter: 07/19/17 Time of Encounter: 20:29 - Past History Planned Operation: Lap. Loyda. Cardiac History: HTN, Hyperlipidemia, Other (Hx DVT) Pulmonary History: Denies Any Significant HX SPARE PARTS CLERK History: Denies Any Significant HX Other Medical History: Denies Any Significant HX, Other (Crohn's Dx) Anesthesia History: No Prior Anesthetic Complications, Past Anesthesia (appy, EGD, Colonoscopy, Bowel resection x 2, R. Knee scope, Cataracts) Alcohol Use: none Drug use: none Medications and Allergies Alendronate Sodium [Fosamax] 70 mg PO QWEEK 07/01/17 [History] Atorvastatin [Lipitor] 40 mg PO HS 07/01/17 [History] Budesonide [Entocort EC] 9 mg PO TID 07/01/17 [History] Cyanocobalamin (B-12) [Vitamin B12] 1,000 mcg IM QMONTH 07/01/17 [History] InFLIXimab [Remicade] 100 mg IVPB Q8W 07/01/17 [History] Lisinopril-HCTZ 10-12.5 [Prinzide 10-12.5] 0.5 tab PO DAILY 07/01/17 [History] Metoprolol Succinate 25 mg PO DAILY 07/01/17 [History] Multivit-Min/FA/Lycopen/Lutein [A Thru Z Select Multivit Tab] 1 tab PO DAILY [History] Potassium Chloride [Klor-Con 10] 10 meq PO TID 07/01/17 [History] Ranitidine HCl [Zantac] 150 mg PO BID 07/01/17 [History] Warfarin [Coumadin] 2.5 mg PO DAILY 07/01/17 [History] 3 Allergy/AdvReac Type Severity Reaction Status Date / Time No Known Allergies Allergy Verified 07/01/17 13:44 - Meds/Allergy Pre-op Review Medications Reviewed: Yes Allergies Reviewed: Yes Beta Blockers on Current Med List: No If Beta Blockers taken, Date/Time (Last Dose taken): Given on prn basis Anesthesia Results - Labs 07/19/17 12:47 07/19/17 08:56 Laboratory Tests 07/19/17 19:13 INR 1.4 - Imaging EKG: other (Ordered) Anesthesia Exam O2 Sat Weight 80.286 kg O2 Sat by Pulse Oximetry 93 O2 Sat by Pulse Oximetry 94 O2 Sat by Pulse Oximetry 93 O2 Sat by Pulse Oximetry 94 O2 Sat by Pulse Oximetry 95 O2 Sat by Pulse Oximetry 94 O2 Sat by Pulse Oximetry 93 O2 Sat by Pulse Oximetry 93 O2 Sat by Pulse Oximetry 95 O2 Sat by Pulse Oximetry 94 O2 Sat by Pulse Oximetry 93 Vital Signs Temp Pulse Resp BP Pulse Ox 98.7 F 100 19 132/80 95 07/17/17 19:10 07/17/17 19:10 07/17/17 19:10 07/17/17 19:10 07/17/17 19:10 Vital Signs/O2 Sat, Most Current Temp Pulse Resp BP Pulse Ox 99.2 F 92 18 144/71 93 07/19/17 18:34 07/19/17 18:34 07/19/17 18:34 07/19/17 18:34 07/19/17 18:34 Height: 5'10'' Weight: 177# - HEENT Pupil (Motor): Pupils equal, EOMI Mallampati: II Teeth: Normal Oral Opening: Greater than 3 - SPARE PARTS CLERK LOC: Oriented SPARE PARTS CLERK Motor: Normal RUE, Normal LUE, Normal RLE, Normal LLE, Normal Face - Cardiac Rhythm: Regular Murmur: None JVD: No Carotid Bruit: No - Pulmonary Breath Sounds: bilateral Clear Respiratory Effort: Symmetrical Anesthesia Assess/Plan ASA Score: 3 Modified Angela Scale for Level of Consciousness: Cooperative, oriented, and tranquil Anesthetic Plan: General Autologous Blood: Yes Monitoring Plan: Standard Monitors Recovery Plan: PACU
[2017-07-20] MEDS: Piperacillin/Tazobactam 3.375 GM in D5% in Water (Mini-Bag+) 100 ML IVPB SCH ×3 (00:03→16:07)
[2017-07-20] MEDS: Ondansetron 4 MG/2 ML VIAL IVP SCH ×9 (00:03→20:33)
[2017-07-20 02:16] LABS: Basophils % 0.4 %; Eosinophils # 0.2 K/mcL (0.0-0.6); Eosinophils % 2.6 %; Hematocrit 32.3 % (37.5-50.1); Hemoglobin 10.5 g/dL (12.9-16.9); Immature Granulocytes % 0.7 % (0-4); Lymphocytes # 1.1 K/mcL (0.6-4.6); Lymphocytes % 15.1 %; Mean Corpuscular HGB Conc 32.5 g/dL (31.6-35.5); Mean Corpuscular Hemoglobin 30.3 pg (28.0-33.3); Mean Corpuscular Volume 93.1 fL (83.0-100.0); Mean Platelet Volume 10.4 fL (9.4-12.4); Monocytes # 1.1 K/mcL (0.0-1.3); Monocytes % 14.3 %; Platelet Count 181 K/mcL (140-400); Red Blood Count 3.47 M/mcL (4.19-5.50); Red Cell Distribution Width 13.7 % (11.5-14.5); Segmented Neutrophils % 66.9 %
[2017-07-20 02:24] LABS: INR 1.2; Prothrombin Time 12.9 Seconds (9.4-12.1)
[2017-07-20 02:27] LABS: Magnesium 1.7 mg/dL (1.6-2.6); Phosphorous 1.3 mg/dL (2.3-4.7)
[2017-07-20 02:30] LABS: Alanine Aminotransferase 217 Units/L (0-55); Albumin 2.6 g/dL (3.5-5.0); Albumin/Globulin Ratio 0.6 (1.1-2.2); Alkaline Phosphatase 267 Units/L (38-126); Aspartate Amino Transferase 291 Units/L (5-34); BUN/Creatinine Ratio 10 (6-26); Bilirubin,Direct 2.6 mg/dL (0.0-0.5); Bilirubin,Indirect 1.4 mg/dL (0.0-1.2); Blood Urea Nitrogen 13 mg/dL (8-26); Calcium 8.5 mg/dL (8.6-10.8); Carbon Dioxide 31 mEq/L (19-29); Chloride 102 mEq/L (98-109); Globulin 4.1 g/dL (2.4-3.5); Glucose 111 mg/dL (70-99); Osmolality,Calculated 291 (280-300); Potassium 3.1 mEq/L (3.5-4.5); Sodium 140 mEq/L (136-145); Total Protein 6.7 g/dL (6.0-8.3); eGFR For African Americans > 60 (> 60); eGFR For Non-African Americans 54 (> 60)
[2017-07-20] MEDS: Pantoprazole 40 MG VIAL IVP SCH (06:02)
[2017-07-20] MEDS ORDERED: Lidocaine -MPF 1% 5 ML AMPUL INFILT ONE (11:25)
[2017-07-20] MEDS ORDERED: D10% in Water 500 ML IVC PRN (11:28)
[2017-07-20] MEDS: D5% in 0.45% NACL w KCl 20 MEQ/1,000 ML MLS IVC SCH (11:31)
[2017-07-20] MEDS ORDERED: Lidocaine -MPF 1% 2 ML VIAL INFILT ONE (11:45)
[2017-07-20] MEDS ORDERED: Indomethacin 50 MG SUPP.RECT RC ONE (14:07)
[2017-07-20] MEDS ORDERED: *HR* FentaNYL (PF) 100 MCG/2 ML VIAL ONE (14:11)
[2017-07-20] MEDS ORDERED: Ringers Solution, Lactated 1,000 ML IVC SCH (14:15)
--- NOTE | 2017-07-20 14:31 | Event Note ---
Date of Encounter: 07/20/17 Time of Encounter: 13:00 Patient case was discussed today and yesterday with Dr. Sawyer. Yesterday Dr. Sawyer concern was that the patient LFTs are high because of possible CBD obstruction due to a stone, although MRCP is negative but MRCP can miss a small stone which is true. The plan was that if his LFTs goes up today then we will do an ERCP and his bilirubin has gone up from 3-3.[address] Heath concern is that because of acute cholecystitis will have a lot of edema and swelling in RUQ region and the doing an ERCP and placing a stent in the CBD will help him avoid any injury to the bile duct. Had detailed discussion with the patient's family members ( patient, , Daughter) and also the risk of the procedure were explained. At this point patient and both are in agreement with proceeding.
[2017-07-20] MEDS ORDERED: Lidocaine -MPF 2% 5 ML VIAL INFILT ONE (14:45)
[2017-07-20] MEDS ORDERED: Ondansetron 4 MG/2 ML VIAL IM ONE (14:45)
[2017-07-20] MEDS ORDERED: *HR* Succinylcholine 200 MG/10 ML VIAL IVP ONE (14:45)
[2017-07-20] MEDS ORDERED: *HR* Labetalol 20 MG/4 ML SYRINGE IVP PRN (14:46)
[2017-07-20] MEDS ORDERED: *HR* HYDROmorphone (PF) 1 MG/ML SYRINGE IVP PRN (14:46)
[2017-07-20] MEDS ORDERED: *HR* Propofol 200 MG/20 ML VIAL IVP ONE (14:46)
[2017-07-20] MEDS ORDERED: Lidocaine -MPF 4% 5 ML AMPUL INFILT ONE (14:46)
[2017-07-20] MEDS ORDERED: *HR* Promethazine 25 MG/ML VIAL IVP PRN (14:46)
--- NOTE | 2017-07-20 15:37 | Anesthesia Evaluation Post Op ---
Date of Encounter: 07/20/17 Time of Encounter: 15:36 - Vital Signs Vital Signs: Vital Signs/O2 Sat/Glucose, Most Recent Temp Pulse Resp BP Pulse Ox 99.6 F 90 16 152/80 93 07/20/17 15:07 07/20/17 15:27 07/20/17 15:27 07/20/17 15:27 07/20/17 15:27 Blood Glucose* 105 - Lungs Lungs: Clear Ascult./Percussion - Airway Airway: Non-obstructed - Cardiovascular Regular Rate - Mental Status Mental Status: Alert & Oriented, Answers Appropriately - Pain Pain Scale: 0 Pain Scale used: Numeric (1 - 10) - Nausea Vomiting Nausea Vomiting: Not Present - Hydration Hydration: NPO - Discharge PostOp Status: Transfer Patient to floor
[2017-07-20] MEDS ORDERED: Clinimix E 5%-15% SOLUTION 2,000 ML with MVI, adult with vitamin K 10 ML IVC SCH (17:00)
[2017-07-20] MEDS ORDERED: Heparin 25,000 UNIT/500 ML D5W 25,000 UNIT/500 ML MLS IVC SCH (20:00)
[2017-07-21] MEDS: Ondansetron 4 MG/2 ML VIAL IVP SCH ×10 (00:25→23:54)
[2017-07-21] MEDS: Piperacillin/Tazobactam 3.375 GM in D5% in Water (Mini-Bag+) 100 ML IVPB SCH ×4 (01:38→23:55)
[2017-07-21] MEDS: D5% in 0.45% NACL w KCl 20 MEQ/1,000 ML MLS IVC SCH (03:18)
[2017-07-21 04:09] LABS: Calcium 8.7 mg/dL (8.6-10.8); Magnesium 1.6 mg/dL (1.6-2.6); Phosphorous 1.9 mg/dL (2.3-4.7); Potassium 3.8 mEq/L (3.5-4.5)
[2017-07-21] MEDS: Pantoprazole 40 MG VIAL IVP SCH (05:35)
--- NOTE | 2017-07-21 07:17 | General Surgery Progress Note ---
Date of Encounter: 07/20/17 Time of Encounter: 14:30 - Assessment and Plan (1) Acute cholecystitis Current Visit: Yes Status: Inactive will plan for ERCP today with GI in light of persistently elevated T bili in the setting of acute calculous cholecystitis; - keep NPO - IVF - hold heparin for at least 4 hours prior to procedure (2) Cholelithiasis Current Visit: Yes Status: Inactive see above Qualifiers: Cholelithiasis location: gallbladder Cholecystitis presence: with cholecystitis Cholecystitis acuity: acute Biliary obstruction: without biliary obstruction Qualified Code(s): K80.00 - Calculus of gallbladder with acute cholecystitis without obstruction (3) DVT (deep venous thrombosis) Current Visit: Yes Status: Acute cont heparin gtt; will hold for procedure, then resume 4hrs after Qualifiers: DVT location: lower extremity Affected thrombotic vein of extremity: unspecified vein of extremity Chronicity: unspecified Laterality: bilateral Qualified Code(s): I82.403 - Acute embolism and thrombosis of unspecified deep veins of lower extremity, bilateral (4) DVT prophylaxis Current Visit: Yes Status: Acute see above (5) Crohns disease Current Visit: Yes Status: Acute appreciate GI recommendations Qualifiers: Gastrointestinal tract location: unspecified location Digestive disease complication type: without complication Qualified Code(s): K50.90 - Crohn's disease, unspecified, without complications (6) HTN (hypertension) Current Visit: Yes Status: Acute cont home meds Qualifiers: Hypertension type: essential hypertension Qualified Code(s): I10 - Essential (primary) hypertension (7) HLD (hyperlipidemia) Current Visit: Yes Status: Acute cont home meds Qualifiers: Hyperlipidemia type: unspecified Qualified Code(s): E78.5 - Hyperlipidemia , unspecified Subjective Patient reports: no new complaints, still having pain Objective Vital Signs - Last 8 Hours Temp Pulse Resp BP Pulse Ox 07/21/17 03:45 97.6 F 65 17 143/74 94 07/20/17 23:27 97.9 F 89 16 143/73 94 Intake and Output 07/20/17 07/20/17 07/21/17 15:59 23:59 07:59 Intake Total 1600 / 1600 1100 / 1100 100 / 100 Output Total 1525 / 1525 0 / 0 Balance 1600 / 1600 -425 / -425 100 / 100 Intake: IV Fluids 1600 / 1600 1100 / 1100 100 / 100 KCl 20mEq IN D5%-0.45 NACL 20 1500 / 1500 1000 / 1000 meq In 1,000 ml @ 75 mls/hr IVC .[id number] [facility] Rx#:[id number] Zosyn 3.375 GM In Dextrose 5% ( 100 / 100 100 / 100 100 / 100 Minibag+) 100 ML 100 ML @ 25 mls/hr IVPB Q8H [facility] Rx#: [id number] Oral 0 / 0 Output: Urine 1525 / 1525 0 / 0 Other: Meal NPO NPO Weight 80.739 kg Blood Glucose* 105 147 154 Patient Weight 07/21/17 23:59 Weight 80.739 kg - General physical appearance well developed, well nourished, no distress - Eyes other ((+)scleral icterus) - Respiratory normal expansion, normal respiratory effort, clear to auscultation - Cardiovascular Cardiovascular exam: Present: RRR - Abdomen Abdomen: Present: soft, tender Abdominal Tenderness: epigastic, RUQ - Neurologic CN 2-12 grossly intact - Psychiatric oriented to time, oriented to person, oriented to place - Labs 07/20/17 01:41 07/21/17 03:38 Diabetes panel 07/21/17 Range/Units 03:38 Sodium 137 (136-145) mEq/L Potassium 3.8 (3.5-4.5) mEq/L Chloride 103 (98-109) mEq/L Carbon Dioxide 25 (19-29) mEq/L BUN 13 (8-26) mg/dL Creatinine 1.50 H (0.72-1.25) mg/dL Glucose 175 H (70-99) mg/dL Calcium 8.7 (8.6-10.8) mg/dL Triglycerides 95 (< 150) mg/dL Calcium panel 07/21/17 Range/Units 03:38 Calcium 8.7 (8.6-10.8) mg/dL Phosphorus 1.9 L (2.3-4.7) mg/dL Pituitary panel 07/21/17 Range/Units 03:38 Sodium 137 (136-145) mEq/L Potassium 3.8 (3.5-4.5) mEq/L Chloride 103 (98-109) mEq/L Carbon Dioxide 25 (19-29) mEq/L BUN 13 (8-26) mg/dL Creatinine 1.50 H (0.72-1.25) mg/dL Glucose 175 H (70-99) mg/dL Calcium 8.7 (8.6-10.8) mg/dL Adrenal panel 07/21/17 Range/Units 03:38 Sodium 137 (136-145) mEq/L Potassium 3.8 (3.5-4.5) mEq/L Chloride 103 (98-109) mEq/L Carbon Dioxide 25 (19-29) mEq/L BUN 13 (8-26) mg/dL Creatinine 1.50 H (0.72-1.25) mg/dL Glucose 175 H (70-99) mg/dL Calcium 8.7 (8.6-10.8) mg/dL - VTE Documentation of Mechanical Device: Intermittent pneumatic compression device Consult Discharge Plan - Plan Referrals: Nicolas Hagan MD [Primary Care Provider] -
[2017-07-21] MEDS ORDERED: Ondansetron 4 MG/2 ML VIAL ONE (09:00)
[2017-07-21] MEDS ORDERED: Dexamethasone 4 MG/ML VIAL ONE (09:00)
[2017-07-21] MEDS ORDERED: *HR* FentaNYL (PF) 100 MCG/2 ML VIAL ONE ×2 (09:00→11:37)
[2017-07-21] MEDS ORDERED: *HR* Propofol 200 MG/20 ML VIAL IVP ONE (09:00)
[2017-07-21] MEDS ORDERED: *HR* Rocuronium Bromide 50 MG/5 ML VIAL ONE (09:00)
[2017-07-21] MEDS ORDERED: Lidocaine -MPF 2% 2 ML VIAL ONE ×2 (09:00→10:55)
[2017-07-21] MEDS ORDERED: *HR* Midazolam HCl 2 MG/2 ML VIAL ONE (09:00)
[2017-07-21] MEDS ORDERED: Lidocaine -MPF 4% 5 ML AMPUL ONE (09:00)
[2017-07-21] MEDS ORDERED: *HR* Succinylcholine 200 MG/10 ML VIAL IVP ONE (09:11)
--- NOTE | 2017-07-21 10:18 | General Surgery Progress Note ---
Date of Encounter: 07/21/17 Time of Encounter: 07:20 - Assessment and Plan (1) Acute cholecystitis Current Visit: Yes Status: Inactive OR today (2) Cholelithiasis Current Visit: Yes Status: Inactive see above Qualifiers: Cholelithiasis location: gallbladder Cholecystitis presence: with cholecystitis Cholecystitis acuity: acute Biliary obstruction: without biliary obstruction Qualified Code(s): K80.00 - Calculus of gallbladder with acute cholecystitis without obstruction (3) DVT (deep venous thrombosis) Current Visit: Yes Status: Acute will resume hep gtt 4 hrs after procedure; then begin coumadin tonight; discussed with patient concerning lovenox shots; Qualifiers: DVT location: lower extremity Affected thrombotic vein of extremity: unspecified vein of extremity Chronicity: unspecified Laterality: bilateral Qualified Code(s): I82.403 - Acute embolism and thrombosis of unspecified deep veins of lower extremity, bilateral (4) DVT prophylaxis Current Visit: Yes Status: Acute see above (5) Crohns disease Current Visit: Yes Status: Acute appreciate GI recommendations Qualifiers: Gastrointestinal tract location: unspecified location Digestive disease complication type: without complication Qualified Code(s): K50.90 - Crohn's disease, unspecified, without complications (6) HTN (hypertension) Current Visit: Yes Status: Acute cont home meds Qualifiers: Hypertension type: essential hypertension Qualified Code(s): I10 - Essential (primary) hypertension (7) HLD (hyperlipidemia) Current Visit: Yes Status: Acute cont home meds Qualifiers: Hyperlipidemia type: unspecified Qualified Code(s): E78.5 - Hyperlipidemia , unspecified Subjective Patient reports: no new complaints Objective Vital Signs - Last 8 Hours Temp Pulse Resp BP Pulse Ox 07/21/17 08:00 97.8 F 68 15 148/79 97 07/21/17 03:45 97.6 F 65 17 143/74 94 Intake and Output 07/20/17 07/21/17 07/21/17 23:59 07:59 15:59 Intake Total 1100 / 1100 100 / 100 0 / 0 Output Total 1525 / 1525 0 / 0 0 / 0 Balance -425 / -425 100 / 100 0 / 0 Intake: IV Fluids 1100 / 1100 100 / 100 KCl 20mEq IN D5%-0.45 NACL 20 1000 / 1000 meq In 1,000 ml @ 75 mls/hr IVC .[id number] [facility] Rx#:[id number] Zosyn 3.375 GM In Dextrose 5% ( 100 / 100 100 / 100 Minibag+) 100 ML 100 ML @ 25 mls/hr IVPB Q8H [facility] Rx#: [id number] Oral 0 / 0 0 / 0 Output: Urine 1525 / 1525 0 / 0 0 / 0 Other: Meal NPO Weight 80.739 kg Blood Glucose* 147 154 Patient Weight 07/21/17 23:59 Weight 80.739 kg - General physical appearance well developed - Eyes normal ocular movement - Respiratory normal expansion, normal respiratory effort, clear to auscultation - Cardiovascular Cardiovascular exam: Present: RRR - Abdomen Abdomen: Present: soft, tender Abdominal Tenderness: epigastic, RUQ - Labs 07/20/17 01:41 07/21/17 03:38 Diabetes panel 07/21/17 Range/Units 03:38 Sodium 137 (136-145) mEq/L Potassium 3.8 (3.5-4.5) mEq/L Chloride 103 (98-109) mEq/L Carbon Dioxide 25 (19-29) mEq/L BUN 13 (8-26) mg/dL Creatinine 1.50 H (0.72-1.25) mg/dL Glucose 175 H (70-99) mg/dL Calcium 8.7 (8.6-10.8) mg/dL Triglycerides 95 (< 150) mg/dL Calcium panel 07/21/17 Range/Units 03:38 Calcium 8.7 (8.6-10.8) mg/dL Phosphorus 1.9 L (2.3-4.7) mg/dL Pituitary panel 07/21/17 Range/Units 03:38 Sodium 137 (136-145) mEq/L Potassium 3.8 (3.5-4.5) mEq/L Chloride 103 (98-109) mEq/L Carbon Dioxide 25 (19-29) mEq/L BUN 13 (8-26) mg/dL Creatinine 1.50 H (0.72-1.25) mg/dL Glucose 175 H (70-99) mg/dL Calcium 8.7 (8.6-10.8) mg/dL Adrenal panel 07/21/17 Range/Units 03:38 Sodium 137 (136-145) mEq/L Potassium 3.8 (3.5-4.5) mEq/L Chloride 103 (98-109) mEq/L Carbon Dioxide 25 (19-29) mEq/L BUN 13 (8-26) mg/dL Creatinine 1.50 H (0.72-1.25) mg/dL Glucose 175 H (70-99) mg/dL Calcium 8.7 (8.6-10.8) mg/dL - VTE Documentation of Mechanical Device: Intermittent pneumatic compression device Consult Discharge Plan - Plan Referrals: Nicolas Hagan MD [Primary Care Provider] -
[2017-07-21] MEDS: Ringers Solution, Lactated 1,000 ML IVC SCH ×4 (10:20→22:15)
[2017-07-21] MEDS ORDERED: Naloxone 0.4 MG/ML INJ IVP PRN ×2 (10:49→16:06)
[2017-07-21] MEDS ORDERED: *HR* Meperidine 25 MG/ML SYRINGE IVP PRN (10:49)
[2017-07-21] MEDS ORDERED: Ondansetron 4 MG/2 ML VIAL IVP PRN (10:49)
[2017-07-21] MEDS ORDERED: *HR* Labetalol 20 MG/4 ML SYRINGE IVP PRN (10:49)
[2017-07-21] MEDS ORDERED: Neostigmine Methylsulfate 3 MG/3 ML SYRINGE ONE (11:01)
[2017-07-21 11:15] LABS: Albumin 2.4 g/dL (3.5-5.0); Albumin/Globulin Ratio 0.6 (1.1-2.2); Bilirubin,Indirect 0.6 mg/dL (0.0-1.2); Globulin 4.2 g/dL (2.4-3.5); Total Protein 6.6 g/dL (6.0-8.3)
[2017-07-21 11:16] LABS: Bilirubin,Total 1.6 mg/dL (0.2-1.2)
[2017-07-21] MEDS ORDERED: Lidocaine -MPF 1% 2 ML VIAL INFILT ONE (11:20)
[2017-07-21] MEDS ORDERED: *HR* HYDROmorphone 2 MG/ML SYRINGE ONE (13:13)
--- NOTE | 2017-07-21 13:19 | Operative Note ---
Date of procedure: 07/21/17 Pre-op diagnosis: Common bile duct injury, severe acute cholecystitis Post-op diagnosis: same Procedure: #1 intraoperative consult #2, bile duct exploration with repair of common bile duct over T-tube Anesthesia: ED Surgeon: Kyle Johnson Estimated blood loss (cc): 50 Specimen: Gallbladder and contents Condition: stable Disposition: PACU Procedure in Detail: I was called to the operating room for intraoperative consultation by Dr. Brennan. The patient is a 71-year-old male who was previously had multiple abdominal surgeries. He had an intense inflammatory response in the right upper quadrant and a right paramedian incision. He had acute cholecystitis with inflammatory changes involving the taty hepatis and transverse colon. Dr. Brennan attempted laparoscopic cholecystectomy and converted to open cholecystectomy. Dr. Brennan performed a top-down dissection in an attempt to protect the common bile duct. On intraoperative inspection it appeared as though the common bile duct proximal to the cystic duct had been damaged during the cholecystectomy. This was likely secondary to intense inflammatory reaction between the gallbladder and taty hepatis. The patient previously had stent placement after ERCP. The injury was above the area of stent placement At this point I assumed conduct of the operation. I completed the cholecystectomy with electrocautery. The cystic artery was controlled with a medium surgical clips proximal and one distally and divided. This allowed visualization of the lateral aspect of where appeared to be transected common bile duct. I made an exploration proximally and distally and confirmed transected common bile duct. The edges were bleeding and appeared to have adequate blood supply. The tissue was not devitalized. I decided to perform open repair over T-tube. A 14 T-tube was fashioned in usual manner. I performed common bile duct exploration proximally and distally and found no evidence of choledocholithiasis. I passed the T-tube proximally and distally. I performed interrupted reapproximation of the common bile duct with 5-0 Prolene stitches. A total of 8 stitches were used. This gave an excellent technical result. I obtained a cholangiogram that demonstrated an excellent technical result with overlap between the T-tube in the ERCP stent. 2 #10 Carson-Saldaña drains were placed. All drains were out through the right abdomen and secured with silk. The wound was irrigated with copious amounts of antibiotic containing solution. The conduct of the operation was returned to Dr. Brennan for closure of the abdomen. I will follow along clinically with the patient.
[2017-07-21] MEDS: *HR* HYDROmorphone (PF) 1 MG/ML SYRINGE IVP PRN ×2 (14:29→14:35)
[2017-07-21] MEDS ORDERED: Ringers Solution, Lactated 1,000 ML ONE (14:54)
--- NOTE | 2017-07-21 14:56 | Anesthesia Evaluation Post Op ---
Date of Encounter: 07/21/17 Time of Encounter: 14:55 - Vital Signs Vital Signs: Vital Signs/O2 Sat, Most Current Temp Pulse Resp BP Pulse Ox 98.1 F 81 20 141/84 94 07/21/17 14:40 07/21/17 14:50 07/21/17 14:50 07/21/17 14:50 07/21/17 14:50 - Lungs Lungs: Clear Ascult./Percussion - Airway Airway: Non-obstructed - Cardiovascular Regular Rate - Mental Status Mental Status: Alert & Oriented, Answers Appropriately - Pain Pain Scale: 5 Pain Scale used: Numeric (1 - 10) - Nausea Vomiting Nausea Vomiting: Not Present - Hydration Hydration: NPO, Has not voided - Discharge PostOp Status: Transfer Patient to floor
--- NOTE | 2017-07-21 15:24 | Operative Note ---
Date of procedure: 07/21/17 Pre-op diagnosis: acute cholecystitis Post-op diagnosis: other (acute on chronic cholecystitis) Procedure: laparoscopic converted to open cholecystectomy, repair of common bile duct injury primarily over T-tube, intraoperative cholangiogram, liver biopsy with true cut Implants: none Complications: partial excision of common bile duct Anesthesia: GETA Local Anesthetics: 0.5% Sensorcaine HCL SubQ (cc) Surgeon: Blu Sawyer Co-Surgeon: Kyle Johnson Management Consultant: Johanny Jacques Estimated blood loss (cc): 400 Specimen: gallbladder and contents Condition: stable Disposition: PACU Procedure in Detail: The patient was brought into the operating room suite and was placed in the supine position. Mechanical DVT prophylaxis was applied. A time-in was conducted. The patient underwent smooth induction of anesthesia. Preoperative antibiotics were given. The patient was prepped and draped in the usual fashion. A time-out was held identifying the correct patient, pathology, and procedure. Everyone was in agreement and we began the procedure. Incision to Dissection I started by creating a 10mm supraumbilical incision. Via open Cirilo technique I did enter into the abdomen. Using a Vicryl on a UR-6 needle, I reapproximated, but did not close the fascia in a [id number] fashion. I inserted the 10mm, 30 degree camera, ensured that I did not cause intraabdominal injury upon entry, and quickly appreicated that there were fairly dense adhesions. I was able to see the T-colon adhered to the abdominal wall. There was a point that was see through amongst the adhesion and I was able to bluntly dissect the camera through that space to visualize the gallbladder. It possessed a pale white, tense appearance. I created a 5mm incision in the epigastric region followed by two more 5mm incision, one at the midclavicular line, the last at the anterior axillary line. I used a needle to decompress the gallbladder. Then Using laparoscopic graspers I managed to elevate the gallbladder above the liver. The graspers caused a large tear in the gallbladder, causing leakage of bile and gallstones. Due to the dense adhesions and the friability of the gallbladder, I terminated the laparoscopic portion and converted to an open procedure. Using 10 blade scapel I cut through the skin and using electrocautery I was able to enter into the peritoneum. The book-isha was set up and I used the laparotomy pads and the chris retractor for the book-isha to apply retraction so that I could have good visualization. I started the top down procedure. Due to the amount of inflammation I was within the lumen of the gallbladder. I continued in this fashion to help visualize the cystic duct from inside the gallbladder. However, despite my attempts to cannulate it, I was not able to. Using the Verenice instruments, I grasp the Pouch of the gallbladder and followed along the edge of the gallbladder until i reached what felt like a duct. I palpated next to it and appreciated a pulse. I believed this to be the cystic artery. Using the right angle instrument, I dissected out the cystic duct and using 0 silk I ligated it, with two on the stay side, one on the specimen side and used the clips and applied it on the stay side, beneath the silk sutures. Continuing to palpate I dissected out what I was palpating to be the cystic artery. I ligated the structure in similar fashion. As I cut through I did notice bile in surgical field. It was at this point that I called for an intraooperative consult to Dr. Johnson. He was able to confirm that I did ligate the cystic duct, but the structure that I palpated as the artery was not the artery. It was the common bile duct. Please see his dictation for details. After the common bile duct was repaired over a T tube, 2 ERI drains were also placed underneath the liver bed. an intraoperative cholangiogram was obtained confirming placement of the T-tube as well as the stent placed by GI during the ERCP the day prior. All drains were exteriorized and sutured to the skin. i then proceeded to close the incision. using a looped PDS, I close both the posterior and anterior fascial layers in a running fashion. I then applied 30cc of marcaine as a local anesthetic. I then used a 3-0 vicryl to close the deep dermal layer. Then I closed the skin using 4-0 monocryl. All incisions were sealed with dermabond The patient tolerated the procedure well and went back to PACU in stable condition.
[2017-07-21] MEDS ORDERED: *HR* Promethazine 25 MG/ML VIAL IVP PRN (16:06)
[2017-07-21] MEDS ORDERED: *HR* HYDROmorphone 20 MG/20 ML PCA IVC PRN (16:06)
[2017-07-21] MEDS ORDERED: *HR* Metoprolol 5 MG/5 ML VIAL IVP PRN (16:06)
[2017-07-21] MEDS ORDERED: Sennosides 8.6 MG TABLET PO PRN (16:06)
[2017-07-21] MEDS ORDERED: Clinimix E 5%-15% SOLUTION 2,000 ML with MVI, adult with vitamin K 10 ML IVC SCH ×2 (17:00)
[2017-07-21] MEDS: BUDESONIDE 9 MG PO SCH ×2 (17:58→20:14)
[2017-07-22] MEDS: Ondansetron 4 MG/2 ML VIAL IVP SCH ×5 (03:43→22:20)
[2017-07-22 04:28] LABS: Basophils % 0.1 %; Hematocrit 23.3 % (37.5-50.1); Immature Granulocytes % 1.2 % (0-4); Lymphocytes # 0.8 K/mcL (0.6-4.6); Lymphocytes % 7.2 %; Mean Corpuscular HGB Conc 31.8 g/dL (31.6-35.5); Mean Corpuscular Volume 94.3 fL (83.0-100.0); Mean Platelet Volume 10.3 fL (9.4-12.4); Monocytes # 1.2 K/mcL (0.0-1.3); Monocytes % 10.3 %; Neutrophils # 9.4 K/mcL (1.6-8.9); Platelet Count 167 K/mcL (140-400); Red Blood Count 2.47 M/mcL (4.19-5.50); Red Cell Distribution Width 13.5 % (11.5-14.5); Segmented Neutrophils % 81.2 %
[2017-07-22 04:34] LABS: Hemoglobin 7.4 g/dL (12.9-16.9)
[2017-07-22 04:43] LABS: Magnesium 1.2 mg/dL (1.6-2.6); Phosphorous 1.5 mg/dL (2.3-4.7)
[2017-07-22 04:48] LABS: Alanine Aminotransferase 144 Units/L (0-55); Albumin/Globulin Ratio 0.6 (1.1-2.2); Alkaline Phosphatase 144 Units/L (38-126); Aspartate Amino Transferase 138 Units/L (5-34); BUN/Creatinine Ratio 13 (6-26); Bilirubin,Total 0.7 mg/dL (0.2-1.2); Blood Urea Nitrogen 14 mg/dL (8-26); Calcium 7.8 mg/dL (8.6-10.8); Carbon Dioxide 23 mEq/L (19-29); Chloride 106 mEq/L (98-109); Globulin 2.9 g/dL (2.4-3.5); Glucose 119 mg/dL (70-99); Osmolality,Calculated 286 (280-300); Potassium 3.9 mEq/L (3.5-4.5); Sodium 137 mEq/L (136-145); eGFR For African Americans > 60 (> 60); eGFR For Non-African Americans > 60 (> 60)
[2017-07-22 04:57] LABS: Albumin 1.8 g/dL (3.5-5.0); Total Protein 4.7 g/dL (6.0-8.3)
[2017-07-22] MEDS: Pantoprazole 40 MG VIAL IVP SCH (05:54)
--- NOTE | 2017-07-22 09:21 | General Surgery Progress Note ---
Date of Encounter: 07/22/17 Time of Encounter: 09:17 - Assessment and Plan (1) Acute cholecystitis Current Visit: Yes Status: Inactive 71M POD#1 s/p lap con to open cholecystectomy with partial transection of CBD with repair over T-tube; pain controlled, afebrile; states he feels good overall ; - 1 cup of water q8hrs x 24hrs, if able tolerate liquids, then okay to take home meds by mouth - d/c NG tube - BECK TENDER for pain control - IS usage: 10 breaths/hr while awake - OOBTC (with assistance) - strict I/O, strict vitals q4hrs (2) Cholelithiasis Current Visit: Yes Status: Inactive see above Qualifiers: Cholelithiasis location: gallbladder Cholecystitis presence: with cholecystitis Cholecystitis acuity: acute Biliary obstruction: without biliary obstruction Qualified Code(s): K80.00 - Calculus of gallbladder with acute cholecystitis without obstruction (3) Acute blood loss as cause of postoperative anemia Current Visit: Yes Status: Acute hct at 23.4, previously at 32.3 - cont to trend; reassess at 1400; if stable, then restart heparin gtt - no need for transfusion at present (4) DVT (deep venous thrombosis) Current Visit: Yes Status: Acute in light of acute blood loss anemia, will hold heparin until hct stable x 2; - hct check will occur at approximately 2p; Qualifiers: DVT location: lower extremity Affected thrombotic vein of extremity: unspecified vein of extremity Chronicity: unspecified Laterality: bilateral Qualified Code(s): I82.403 - Acute embolism and thrombosis of unspecified deep veins of lower extremity, bilateral (5) DVT prophylaxis Current Visit: Yes Status: Acute see above (6) Crohns disease Current Visit: Yes Status: Acute appreciate GI recommendations - okay to restart Crohn's medications Qualifiers: Gastrointestinal tract location: unspecified location Digestive disease complication type: without complication Qualified Code(s): K50.90 - Crohn's disease, unspecified, without complications (7) HTN (hypertension) Current Visit: Yes Status: Acute restart home meds Qualifiers: Hypertension type: essential hypertension Qualified Code(s): I10 - Essential (primary) hypertension (8) HLD (hyperlipidemia) Current Visit: Yes Status: Acute restart home meds Qualifiers: Hyperlipidemia type: unspecified Qualified Code(s): E78.5 - Hyperlipidemia , unspecified (9) On parenteral nutrition Current Visit: Yes Status: Acute cont TPN; -cap total fluid rate at 125 Subjective Patient reports: feels better, still having pain, pain is less (afebrile; no acute events overnight; ) Objective Vital Signs - Last 8 Hours Temp Pulse Resp BP Pulse Ox 07/22/17 05:18 98.1 F 84 17 119/63 95 Intake and Output 07/21/17 07/22/17 07/22/17 23:59 07:59 15:59 Intake Total 1100 / 1100 100 / 100 Output Total 162 / 162 700 / 700 Balance 938 / 938 -600 / -600 Intake: IV Fluids 1100 / 1100 100 / 100 Lactated Ringers 1,000 ML @ 125 1000 / 1000 mls/hr IVC .Q8H [facility] Rx#: [id number] Zosyn 3.375 GM In Dextrose 5% ( 100 / 100 100 / 100 Minibag+) 100 ML 100 ML @ 25 mls/hr IVPB Q8H [facility] Rx#: [id number] Oral 0 / 0 Output: Urine 0 / 0 550 / 550 Gastric Tube Lavage Amount 0 / 0 Right Nare 0 / 0 Right Nephrostomy 150 / 150 Wound Drainage 162 / 162 0 / 0 ERI #1 Right Abdomen 45 / 45 ERI#2 Right Abdomen 22 / 22 0 / 0 T-Tube Right Abdomen 95 / 95 0 / 0 Other: Meal Dinner NPO Weight 80 kg Blood Glucose* 180 150 Patient Weight 07/22/17 23:59 Weight 80 kg - General physical appearance well developed, well nourished, no distress - Respiratory normal expansion, normal respiratory effort, clear to auscultation - Cardiovascular Cardiovascular exam: Present: RRR - Abdomen Abdomen: Present: soft, tender Hernia: none - Incision Incision: Present: clean and dry, intact - Neurologic CN 2-12 grossly intact - Psychiatric oriented to time, oriented to person, oriented to place - Labs 07/22/17 04:20 07/22/17 04:20 Diabetes panel 07/21/17 07/22/17 Range/Units 03:38 04:20 Sodium 137 137 (136-145) mEq/L Potassium 3.8 3.9 (3.5-4.5) mEq/L Chloride 103 106 (98-109) mEq/L Carbon Dioxide 25 23 (19-29) mEq/L BUN 13 14 (8-26) mg/dL Creatinine 1.50 H 1.06 (0.72-1.25) mg/dL Glucose 175 H 119 H (70-99) mg/dL Calcium 8.7 7.8 L (8.6-10.8) mg/dL AST 165 H 138 H (5-34) Units/L ALT 179 H 144 H (0-55) Units/L Alkaline Phosphatase 242 H 144 H (38-126) Units/L Albumin 2.4 L 1.8 L D (3.5-5.0) g/dL Triglycerides 95 (< 150) mg/dL Calcium panel 07/21/17 07/22/17 07/22/17 Range/Units 03:38 04:20 04:20 Calcium 8.7 7.8 L (8.6-10.8) mg/dL Phosphorus 1.9 L 1.5 L (2.3-4.7) mg/dL Albumin 2.4 L 1.8 L D (3.5-5.0) g/dL Pituitary panel 07/21/17 07/22/17 Range/Units 03:38 04:20 Sodium 137 137 (136-145) mEq/L Potassium 3.8 3.9 (3.5-4.5) mEq/L Chloride 103 106 (98-109) mEq/L Carbon Dioxide 25 23 (19-29) mEq/L BUN 13 14 (8-26) mg/dL Creatinine 1.50 H 1.06 (0.72-1.25) mg/dL Glucose 175 H 119 H (70-99) mg/dL Calcium 8.7 7.8 L (8.6-10.8) mg/dL Adrenal panel 07/21/17 07/22/17 Range/Units 03:38 04:20 Sodium 137 137 (136-145) mEq/L Potassium 3.8 3.9 (3.5-4.5) mEq/L Chloride 103 106 (98-109) mEq/L Carbon Dioxide 25 23 (19-29) mEq/L BUN 13 14 (8-26) mg/dL Creatinine 1.50 H 1.06 (0.72-1.25) mg/dL Glucose 175 H 119 H (70-99) mg/dL Calcium 8.7 7.8 L (8.6-10.8) mg/dL Total Bilirubin 1.6 H D 0.7 (0.2-1.2) mg/dL AST 165 H 138 H (5-34) Units/L ALT 179 H 144 H (0-55) Units/L Alkaline Phosphatase 242 H 144 H (38-126) Units/L Albumin 2.4 L 1.8 L D (3.5-5.0) g/dL - VTE Documentation of Mechanical Device: Intermittent pneumatic compression device Consult Discharge Plan - Plan Referrals: Nicolas Hagan MD [Primary Care Provider] -
[2017-07-22] MEDS: Piperacillin/Tazobactam 3.375 GM in D5% in Water (Mini-Bag+) 100 ML IVPB SCH ×2 (10:24→15:58)
[2017-07-22] MEDS ORDERED: D10% in Water 500 ML IVC PRN (12:00)
[2017-07-22] MEDS ORDERED: Potassium Phosphate 44 MEQ in 0.9 % Sodium Chloride 250 ML IVPB ONE (12:02)
[2017-07-22] MEDS ORDERED: Magnesium Sulfate 2 GM in D5% in Water 100 ML IVPB SCH (12:02)
[2017-07-22] MEDS ORDERED: SODIUM PHOSPHATE IVPB ONE (12:03)
[2017-07-22] MEDS ORDERED: D5 IVPB ONE (12:03)
[2017-07-22] MEDS ORDERED: WATER IVPB ONE (12:03)
[2017-07-22] MEDS: Magnesium Sulfate 2 GM in D5% in Water 100 ML IVPB SCH ×2 (13:00→14:09)
[2017-07-22] MEDS: BUDESONIDE 9 MG PO SCH ×3 (13:04→22:20)
[2017-07-22] MEDS: Famotidine 20 MG TABLET PO SCH ×2 (13:05→22:08)
[2017-07-22] MEDS: Metoprolol XL (24 HR) Succ 25 MG TAB.ER.24H PO SCH (13:05)
[2017-07-22] MEDS: Ringers Solution, Lactated 1,000 ML IVC SCH ×2 (16:12→22:09)
[2017-07-22] MEDS ORDERED: Clinimix E 5%-15% SOLUTION 2,000 ML with MVI, adult with vitamin K 10 ML, Magnesium S... IVC SCH (17:00)
[2017-07-23] MEDS: Piperacillin/Tazobactam 3.375 GM in D5% in Water (Mini-Bag+) 100 ML IVPB SCH ×3 (02:00→21:39)
[2017-07-23] MEDS: Ondansetron 4 MG/2 ML VIAL IVP SCH ×6 (02:00→21:40)
[2017-07-23] MEDS: Pantoprazole 40 MG VIAL IVP SCH (05:38)
[2017-07-23 06:45] LABS: BUN/Creatinine Ratio 13 (6-26); Blood Urea Nitrogen 18 mg/dL (8-26); Calcium 8.1 mg/dL (8.6-10.8); Carbon Dioxide 28 mEq/L (19-29); Chloride 104 mEq/L (98-109); Glucose 104 mg/dL (70-99); Magnesium 2.1 mg/dL (1.6-2.6); Osmolality,Calculated 292 (280-300); Potassium 3.4 mEq/L (3.5-4.5); Sodium 140 mEq/L (136-145); eGFR For African Americans > 60 (> 60); eGFR For Non-African Americans 53 (> 60)
[2017-07-23 06:46] LABS: Phosphorous 3.8 mg/dL (2.3-4.7)
[2017-07-23 07:23] LABS: Hematocrit 26.4 % (37.5-50.1); Hemoglobin 8.6 g/dL (12.9-16.9)
[2017-07-23] MEDS: Famotidine 20 MG TABLET PO SCH ×2 (09:05→21:40)
[2017-07-23] MEDS: Metoprolol XL (24 HR) Succ 25 MG TAB.ER.24H PO SCH (09:05)
[2017-07-23] MEDS: BUDESONIDE 9 MG PO SCH ×2 (09:06→13:59)
--- NOTE | 2017-07-23 12:07 | General Surgery Progress Note ---
Date of Encounter: 07/24/17 Time of Encounter: 12:04 - Assessment and Plan (1) Cholelithiasis Current Visit: Yes Status: Acute Status post laparoscopic converted to open cholecystectomy with T-tube placement. T-tube drainage shows bilious fluid. ERI drain show a single is full with no evidence of bile tinged present. Will start advancement to clears with no restriction in volume. Continue out of bed and ambulation. Continue with TPN. Qualifiers: Cholelithiasis location: gallbladder Cholecystitis presence: with cholecystitis Cholecystitis acuity: acute Biliary obstruction: without biliary obstruction Qualified Code(s): K80.00 - Calculus of gallbladder with acute cholecystitis without obstruction (2) Crohns disease Current Visit: Yes Status: Acute Continue with patient's ongoing medications. Qualifiers: Gastrointestinal tract location: unspecified location Digestive disease complication type: without complication Qualified Code(s): K50.90 - Crohn's disease, unspecified, without complications (3) DVT prophylaxis Current Visit: Yes Status: Acute Hemoglobin stable at 8.6. Will start heparin subcutaneous. (4) Hypokalemia Current Visit: Yes Status: Acute Mild hypokalemia at 3.4. Will replace and follow BMP in a.m. Subjective Patient reports: other (Patient has minimal pain and overall feels good. No nausea or vomiting and no flatus. ) Objective Vital Signs - Last 8 Hours Temp Pulse Resp BP Pulse Ox 07/23/17 10:43 98.8 F 89 18 113/68 94 07/23/17 06:41 99.4 F 93 18 119/66 93 07/23/17 04:31 98.7 F 95 15 109/68 92 Intake and Output 07/22/17 07/23/17 07/23/17 23:59 07:59 15:59 Intake Total 100 / 100 350 / 350 0 / 0 Output Total 600 / 600 450 / 450 475 / 475 Balance -500 / -500 -100 / -100 -475 / -475 Intake: IV Fluids 100 / 100 350 / 350 Intralipid 20% 250 ML @ 21 mls/ 250 / 250 hr IVPB DAILY@1700 [facility] Rx#: [id number] Zosyn 3.375 GM In Dextrose 5% ( 100 / 100 100 / 100 Minibag+) 100 ML 100 ML @ 25 mls/hr IVPB Q8H [facility] Rx#: [id number] Oral 0 / 0 0 / 0 Output: Urine 600 / 600 300 / 300 375 / 375 Wound Drainage 150 / 150 100 / 100 ERI #1 Right Abdomen 0 / 0 0 / 0 ERI#2 Right Abdomen 0 / 0 0 / 0 T-Tube Right Abdomen 150 / 150 100 / 100 Other: Meal NPO NPO Blood Glucose* 143 154 134 - General physical appearance well nourished, no distress - Abdomen Abdomen: Present: bowel sounds present, soft, tender (mild pain to palpation along RUQ incision. No erythema or drainage.) - Labs 07/24/17 06:10 07/24/17 06:10 Diabetes panel 07/23/17 Range/Units 05:38 Sodium 140 (136-145) mEq/L Potassium 3.4 L (3.5-4.5) mEq/L Chloride 104 (98-109) mEq/L Carbon Dioxide 28 (19-29) mEq/L BUN 18 (8-26) mg/dL Creatinine 1.34 H (0.72-1.25) mg/dL Glucose 104 H (70-99) mg/dL Calcium 8.1 L (8.6-10.8) mg/dL Calcium panel 07/23/17 Range/Units 05:38 Calcium 8.1 L (8.6-10.8) mg/dL Phosphorus 3.8 D (2.3-4.7) mg/dL Pituitary panel 07/23/17 Range/Units 05:38 Sodium 140 (136-145) mEq/L Potassium 3.4 L (3.5-4.5) mEq/L Chloride 104 (98-109) mEq/L Carbon Dioxide 28 (19-29) mEq/L BUN 18 (8-26) mg/dL Creatinine 1.34 H (0.72-1.25) mg/dL Glucose 104 H (70-99) mg/dL Calcium 8.1 L (8.6-10.8) mg/dL Adrenal panel 07/23/17 Range/Units 05:38 Sodium 140 (136-145) mEq/L Potassium 3.4 L (3.5-4.5) mEq/L Chloride 104 (98-109) mEq/L Carbon Dioxide 28 (19-29) mEq/L BUN 18 (8-26) mg/dL Creatinine 1.34 H (0.72-1.25) mg/dL Glucose 104 H (70-99) mg/dL Calcium 8.1 L (8.6-10.8) mg/dL - VTE Documentation of Mechanical Device: Intermittent pneumatic compression device Consult Discharge Plan - Plan Referrals: Nicolas Hagan MD [Primary Care Provider] -
[2017-07-23] MEDS ORDERED: Clinimix E 5%-15% SOLUTION 2,000 ML with MVI, adult with vitamin K 10 ML, Magnesium S... IVC SCH (17:00)
[2017-07-24] MEDS: BUDESONIDE 9 MG PO SCH ×3 (00:05→14:36)
[2017-07-24] MEDS: Ondansetron 4 MG/2 ML VIAL IVP SCH ×6 (00:10→20:46)
[2017-07-24] MEDS: Pantoprazole 40 MG VIAL IVP SCH (06:29)
[2017-07-24] MEDS: Piperacillin/Tazobactam 3.375 GM in D5% in Water (Mini-Bag+) 100 ML IVPB SCH ×3 (06:30→22:24)
[2017-07-24] MEDS: Ringers Solution, Lactated 1,000 ML IVC SCH ×2 (06:32→08:42)
[2017-07-24 07:21] LABS: Eosinophils # 0.3 K/mcL (0.0-0.6); Hematocrit 27.8 % (37.5-50.1); Hemoglobin 8.7 g/dL (12.9-16.9); Mean Corpuscular HGB Conc 31.3 g/dL (31.6-35.5); Mean Corpuscular Volume 95.9 fL (83.0-100.0); Mean Platelet Volume 10.8 fL (9.4-12.4); Nucleated Red Blood Cells 0.2 /100 WBC (0); Platelet Count 200 K/mcL (140-400); Red Cell Distribution Width 14.1 % (11.5-14.5)
[2017-07-24 07:38] LABS: BUN/Creatinine Ratio 15 (6-26); Blood Urea Nitrogen 21 mg/dL (8-26); Calcium 8.6 mg/dL (8.6-10.8); Carbon Dioxide 28 mEq/L (19-29); Chloride 103 mEq/L (98-109); Glucose 97 mg/dL (70-99); Osmolality,Calculated 289 (280-300); Potassium 3.9 mEq/L (3.5-4.5); Sodium 138 mEq/L (136-145); eGFR For African Americans > 60 (> 60); eGFR For Non-African Americans 51 (> 60)
[2017-07-24] MEDS: Metoprolol XL (24 HR) Succ 25 MG TAB.ER.24H PO SCH (08:41)
[2017-07-24] MEDS: Famotidine 20 MG TABLET PO SCH (08:41)
[2017-07-24 08:46] LABS: Lymphocytes # 2.4 K/mcL (0.6-4.6); Monocytes # 2.3 K/mcL (0.0-1.3)
[2017-07-24 08:47] LABS: Platelet Estimate Normal (Normal)
--- NOTE | 2017-07-24 12:19 | General Surgery Progress Note ---
Date of Encounter: 07/24/17 Time of Encounter: 12:16 - Assessment and Plan (1) Cholelithiasis Current Visit: Yes Status: Acute Status post laparoscopic converted to open cholecystectomy with T-tube placement. Noted increase in right upper quadrant ERI drainage but no change in coloration. Will continue with clear liquids for now. Continue to monitor ERI and T-tube drainage of bile. Encourage out of bed and ambulation. Qualifiers: Cholelithiasis location: gallbladder Cholecystitis presence: with cholecystitis Cholecystitis acuity: acute Biliary obstruction: without biliary obstruction Qualified Code(s): K80.00 - Calculus of gallbladder with acute cholecystitis without obstruction (2) Crohns disease Current Visit: Yes Status: Acute Continue with patient's ongoing medications. Qualifiers: Gastrointestinal tract location: unspecified location Digestive disease complication type: without complication Qualified Code(s): K50.90 - Crohn's disease, unspecified, without complications (3) DVT prophylaxis Current Visit: Yes Status: Acute On subcutaneous heparin (4) Hypokalemia Current Visit: Yes Status: Acute Potassium level 3.9 today. Continue to follow. Subjective Patient reports: other (Admits to some RUQ lateral pain. No nausea or vomiting. No flatus.) Objective Vital Signs - Last 8 Hours Temp Pulse Resp BP Pulse Ox 07/24/17 10:15 97.7 F 93 18 111/63 93 07/24/17 07:04 98.6 F 90 18 93/55 95 07/24/17 04:26 98.5 F 84 18 107/62 94 Intake and Output 07/23/17 07/24/17 07/24/17 23:59 07:59 15:59 Intake Total 780 / 780 1278.3 / 1278.3 1120 / 1120 Output Total 1263 / 1263 1838 / 1838 900 / 900 Balance -483 / -483 -559.7 / -559.7 220 / 220 Intake: IV Fluids 100 / 100 1278.3 / 1278.3 1000 / 1000 Lactated Ringers 1,000 ML @ 125 928.3 / 928.3 1000 / 1000 mls/hr IVC .Q8H [facility] Rx#: [id number] Intralipid 20% 250 ML @ 21 mls/ 250 / 250 hr IVPB DAILY@1700 [facility] Rx#: [id number] Zosyn 3.375 GM In Dextrose 5% ( 100 / 100 100 / 100 Minibag+) 100 ML 100 ML @ 25 mls/hr IVPB Q8H [facility] Rx#: [id number] Oral 680 / 680 0 / 0 120 / 120 Output: Urine 1000 / 1000 1150 / 1150 550 / 550 Wound Drainage 263 / 263 688 / 688 350 / 350 ERI #1 Right Abdomen 3 / 3 160 / 160 0 / 0 ERI#2 Right Abdomen 3 / 3 0 / 0 T-Tube Right Abdomen 250 / 250 525 / 525 350 / 350 Other: Weight 80.2 kg Blood Glucose* 137 156 152 Patient Weight 07/24/17 23:59 Weight 80.2 kg - General physical appearance no distress - Respiratory normal respiratory effort - Abdomen Abdomen: Present: soft, tender (Mildly tender to palpation along lateral incision. Noted bowel sounds.) - Labs 07/24/17 06:10 07/24/17 06:10 Diabetes panel 07/24/17 Range/Units 06:10 Sodium 138 (136-145) mEq/L Potassium 3.9 (3.5-4.5) mEq/L Chloride 103 (98-109) mEq/L Carbon Dioxide 28 (19-29) mEq/L BUN 21 (8-26) mg/dL Creatinine 1.38 H (0.72-1.25) mg/dL Glucose 97 (70-99) mg/dL Calcium 8.6 (8.6-10.8) mg/dL Calcium panel 07/24/17 Range/Units 06:10 Calcium 8.6 (8.6-10.8) mg/dL Pituitary panel 07/24/17 Range/Units 06:10 Sodium 138 (136-145) mEq/L Potassium 3.9 (3.5-4.5) mEq/L Chloride 103 (98-109) mEq/L Carbon Dioxide 28 (19-29) mEq/L BUN 21 (8-26) mg/dL Creatinine 1.38 H (0.72-1.25) mg/dL Glucose 97 (70-99) mg/dL Calcium 8.6 (8.6-10.8) mg/dL Adrenal panel 07/24/17 Range/Units 06:10 Sodium 138 (136-145) mEq/L Potassium 3.9 (3.5-4.5) mEq/L Chloride 103 (98-109) mEq/L Carbon Dioxide 28 (19-29) mEq/L BUN 21 (8-26) mg/dL Creatinine 1.38 H (0.72-1.25) mg/dL Glucose 97 (70-99) mg/dL Calcium 8.6 (8.6-10.8) mg/dL - VTE Documentation of Mechanical Device: Intermittent pneumatic compression device Consult Discharge Plan - Plan Referrals: Nicolas Hagan MD [Primary Care Provider] -
[2017-07-24] MEDS: Clinimix E 5%-15% SOLUTION 2,000 ML with MVI, adult with vitamin K 10 ML, Magnesium S... IVC SCH (17:11)
[2017-07-25] MEDS: BUDESONIDE 9 MG PO SCH ×4 (00:02→16:11)
[2017-07-25] MEDS: Ondansetron 4 MG/2 ML VIAL IVP SCH ×2 (00:04→04:54)
[2017-07-25] MEDS: Piperacillin/Tazobactam 3.375 GM in D5% in Water (Mini-Bag+) 100 ML IVPB SCH ×3 (04:55→22:36)
[2017-07-25] MEDS: Pantoprazole 40 MG VIAL IVP SCH (04:55)
[2017-07-25] MEDS ORDERED: Ondansetron 4 MG/2 ML VIAL IVP PRN (08:56)
[2017-07-25 08:58] LABS: Calcium 8.6 mg/dL (8.6-10.8); Magnesium 1.9 mg/dL (1.6-2.6); Phosphorous 2.7 mg/dL (2.3-4.7); Potassium 4.1 mEq/L (3.5-4.5)
--- NOTE | 2017-07-25 08:59 | General Surgery Progress Note ---
Date of Encounter: 07/25/17 Time of Encounter: 08:57 - Assessment and Plan (1) Acute cholecystitis Current Visit: Yes Status: Inactive 71M POD#4 s/p lap con to open cholecystectomy with partial transection of CBD with repair over T-tube; pain controlled, afebrile; states he feels good overall ; - begin soft diet today - lunch - d/c SUGAR PRESSER, begin PO pain meds - IS usage: 10 breaths/hr while awake - OOBTC (with assistance) - strict I/O, strict vitals q4hrs (2) Cholelithiasis Current Visit: Yes Status: Inactive see above Qualifiers: Cholelithiasis location: gallbladder Cholecystitis presence: with cholecystitis Cholecystitis acuity: acute Biliary obstruction: without biliary obstruction Qualified Code(s): K80.00 - Calculus of gallbladder with acute cholecystitis without obstruction (3) Acute blood loss as cause of postoperative anemia Current Visit: Yes Status: Acute stable over last 24 hours; patient without symptoms of hemodynamic compromise - begin hep gtt today - begin PO coumadin tonight with dinner check CBC in AM (4) DVT (deep venous thrombosis) Current Visit: Yes Status: Acute hep gtt today coumadin tonight; trend INR Qualifiers: DVT location: lower extremity Affected thrombotic vein of extremity: unspecified vein of extremity Chronicity: unspecified Laterality: bilateral Qualified Code(s): I82.403 - Acute embolism and thrombosis of unspecified deep veins of lower extremity, bilateral (5) DVT prophylaxis Current Visit: Yes Status: Acute see above (6) Crohns disease Current Visit: Yes Status: Acute appreciate GI recommendations - okay to take Crohn's medications Qualifiers: Gastrointestinal tract location: unspecified location Digestive disease complication type: without complication Qualified Code(s): K50.90 - Crohn's disease, unspecified, without complications (7) HTN (hypertension) Current Visit: Yes Status: Acute cont home meds Qualifiers: Hypertension type: essential hypertension Qualified Code(s): I10 - Essential (primary) hypertension (8) HLD (hyperlipidemia) Current Visit: Yes Status: Acute cont home meds Qualifiers: Hyperlipidemia type: unspecified Qualified Code(s): E78.5 - Hyperlipidemia , unspecified (9) On parenteral nutrition Current Visit: Yes Status: Acute cont TPN; -cap total fluid rate at 125 - if tolerated soft diet for lunch, will begin to wean TPN at dinner with plans for d/c 07/26 Subjective Patient reports: no new complaints, feels better, still having pain, pain is less, tolerating liquids well, afebrile Objective Vital Signs - Last 8 Hours Temp Pulse Resp BP Pulse Ox 07/25/17 07:20 98.6 F 89 18 110/64 95 07/25/17 04:10 98.6 F 83 18 109/58 95 Intake and Output 07/24/17 07/25/17 07/25/17 23:59 07:59 15:59 Intake Total 837 / 837 350 / 350 Output Total 2525 / 2525 1425 / 1425 Balance -1688 / -1688 -1075 / -1075 Intake: IV Fluids 837 / 837 350 / 350 Lactated Ringers 1,000 ML @ 125 737 / 737 mls/hr IVC .Q8H [facility] Rx#: [id number] Intralipid 20% 250 ML @ 21 mls/ 250 / 250 hr IVPB DAILY@1700 [facility] Rx#: [id number] Zosyn 3.375 GM In Dextrose 5% ( 100 / 100 100 / 100 Minibag+) 100 ML 100 ML @ 25 mls/hr IVPB Q8H [facility] Rx#: [id number] Oral 0 / 0 Output: Urine 1650 / 1650 975 / 975 Wound Drainage 875 / 875 450 / 450 ERI #1 Right Abdomen 50 / 50 25 / 25 ERI#2 Right Abdomen 0 / 0 0 / 0 T-Tube Right Abdomen 825 / 825 425 / 425 Other: Weight 81.6 kg Blood Glucose* 155 148 Patient Weight 07/25/17 23:59 Weight 81.6 kg - General physical appearance well developed, well nourished, no distress - Eyes other (no scleral icterus) - Respiratory normal expansion, normal respiratory effort, clear to auscultation - Cardiovascular Cardiovascular exam: Present: RRR - Abdomen Abdomen: Present: soft, tender (appropriately tender to palpation along incision ; rest of abdomen is soft, benign; non tender) Hernia: none - Incision Incision: Present: clean and dry, intact - Integumentary other (no jaundice) - Psychiatric oriented to time, oriented to person, oriented to place - Labs 07/24/17 06:10 07/25/17 08:10 - VTE Documentation of Mechanical Device: Intermittent pneumatic compression device Consult Discharge Plan - Plan Referrals: Nicolas Hagan MD [Primary Care Provider] -
[2017-07-25] MEDS: Clinimix E 5%-15% SOLUTION 2,000 ML with MVI, adult with vitamin K 10 ML, Magnesium S... IVC SCH (09:05)
[2017-07-25] MEDS ORDERED: Ibuprofen 400 MG TABLET PO PRN (09:06)
[2017-07-25] MEDS: Famotidine 20 MG TABLET PO SCH (09:49)
[2017-07-25] MEDS: Metoprolol XL (24 HR) Succ 25 MG TAB.ER.24H PO SCH (09:50)
[2017-07-25] MEDS: Heparin 25,000 UNIT/500 ML D5W 25,000 UNIT/500 ML MLS IVC SCH (11:28)
[2017-07-25] MEDS: traMADol 50 MG TABLET PO PRN ×2 (13:54→22:38)
[2017-07-25] MEDS ORDERED: Acetaminophen 325 MG TABLET PO PRN (14:43)
[2017-07-25 15:45] LABS: INR 1.1; Prothrombin Time 11.7 Seconds (9.4-12.1)
[2017-07-25] MEDS ORDERED: Clinimix E 5%-15% SOLUTION 2,000 ML with MVI, adult with vitamin K 10 ML IVC SCH (17:00)
[2017-07-25] MEDS ORDERED: *HR* Warfarin 2.5 MG TABLET PO SCH (18:00)
[2017-07-25 18:24] LABS: Activated Partial Thrombo Time > 360.0 Seconds (26.0-36.0)
[2017-07-25 18:47] LABS: Heparin anti-factor XA UFH 1.57 IU/mL (0.30-0.70)
[2017-07-25] MEDS ORDERED: *HR* Heparin 5,000 UNIT/ML VIAL IVP PRN ×2 (20:38)
[2017-07-26] MEDS: BUDESONIDE 9 MG PO SCH ×4 (01:32→20:51)
[2017-07-26 03:47] LABS: INR 1.1; Prothrombin Time 11.7 Seconds (9.4-12.1)
[2017-07-26 04:11] LABS: Hemoglobin 8.2 g/dL (12.9-16.9); Mean Corpuscular HGB Conc 31.5 g/dL (31.6-35.5); Mean Corpuscular Hemoglobin 29.9 pg (28.0-33.3); Mean Corpuscular Volume 94.9 fL (83.0-100.0); Platelet Count 271 K/mcL (140-400); Red Blood Count 2.74 M/mcL (4.19-5.50); Red Cell Distribution Width 13.6 % (11.5-14.5)
[2017-07-26 04:52] LABS: Activated Partial Thrombo Time 202.1 Seconds (26.0-36.0)
[2017-07-26 04:53] LABS: Eosinophils # 0.2 K/mcL (0.0-0.6); Lymphocytes # 2.8 K/mcL (0.6-4.6); Monocytes # 2.1 K/mcL (0.0-1.3); Neutrophils # 6.4 K/mcL (1.6-8.9); Platelet Estimate Normal (Normal)
[2017-07-26 05:29] LABS: Calcium 8.8 mg/dL (8.6-10.8); Potassium 4.1 mEq/L (3.5-4.5)
[2017-07-26] MEDS: Piperacillin/Tazobactam 3.375 GM in D5% in Water (Mini-Bag+) 100 ML IVPB SCH (06:38)
[2017-07-26] MEDS: Pantoprazole 40 MG VIAL IVP SCH (06:40)
[2017-07-26] MEDS: traMADol 50 MG TABLET PO PRN ×2 (06:41→15:54)
[2017-07-26] MEDS: Famotidine 20 MG TABLET PO SCH (08:28)
--- NOTE | 2017-07-26 09:16 | General Surgery Progress Note ---
Date of Encounter: 07/26/17 Time of Encounter: 09:12 - Assessment and Plan (1) Acute cholecystitis Current Visit: Yes Status: Inactive 71M POD#4 s/p lap con to open cholecystectomy with partial transection of CBD with repair over T-tube; pain controlled, afebrile; states he feels good overall ; - diet as tolerated; just need to improve PO intake - cont PO pain meds - IS usage: 10 breaths/hr while awake - OOBTC (with assistance) - strict I/O, strict vitals q4hrs (2) Cholelithiasis Current Visit: Yes Status: Inactive see above Qualifiers: Cholelithiasis location: gallbladder Cholecystitis presence: with cholecystitis Cholecystitis acuity: acute Biliary obstruction: without biliary obstruction Qualified Code(s): K80.00 - Calculus of gallbladder with acute cholecystitis without obstruction (3) Acute blood loss as cause of postoperative anemia Current Visit: Yes Status: Acute h/h stable; asymptomatic - coumadin daily, INR daily - will likely take a while, at least until TPN is finished as there is vit K in TPN - will plan for today's TPNH to be witout vit K (4) DVT (deep venous thrombosis) Current Visit: Yes Status: Acute hep gtt coumadin ; trend INR ambulate, SCDs Qualifiers: DVT location: lower extremity Affected thrombotic vein of extremity: unspecified vein of extremity Chronicity: unspecified Laterality: bilateral Qualified Code(s): I82.403 - Acute embolism and thrombosis of unspecified deep veins of lower extremity, bilateral (5) DVT prophylaxis Current Visit: Yes Status: Acute see above (6) Crohns disease Current Visit: Yes Status: Acute appreciate GI recommendations - okay to take Crohn's medications Qualifiers: Gastrointestinal tract location: unspecified location Digestive disease complication type: without complication Qualified Code(s): K50.90 - Crohn's disease, unspecified, without complications (7) HTN (hypertension) Current Visit: Yes Status: Acute cont home meds Qualifiers: Hypertension type: essential hypertension Qualified Code(s): I10 - Essential (primary) hypertension (8) HLD (hyperlipidemia) Current Visit: Yes Status: Acute cont home meds Qualifiers: Hyperlipidemia type: unspecified Qualified Code(s): E78.5 - Hyperlipidemia , unspecified (9) On parenteral nutrition Current Visit: Yes Status: Acute cont TPN at half strength today; d/c vit K in TPN Subjective Patient reports: feels better (clamped T tube yesterday; no abdominal pain, jaundice, no bilious drainage from ERI drains), pain is less, tolerating liquids well, tolerating a regular diet, voiding w/o difficulty, flatus, bowel movement , afebrile Objective Vital Signs - Last 8 Hours Temp Pulse Resp BP Pulse Ox 07/26/17 08:06 98.4 F 84 18 96/57 93 07/26/17 03:41 98.6 F 85 15 95/61 93 Intake and Output 07/25/17 07/26/17 07/26/17 23:59 07:59 15:59 Intake Total 737 / 737 350 / 350 904 / 904 Output Total 0 / 0 1000 / 1000 0 / 0 Balance 737 / 737 -650 / -650 904 / 904 Intake: IV Fluids 257 / 257 350 / 350 904 / 904 Heparin 25,000 UNIT/500 ML D5W 157 / 157 203 / 203 25,000 unit In 500 ml @ 14 UNIT /KG/HR 22.848 mls/hr IVC . [id number] [facility] Rx#:[id number] Clinimix E 5%-15% SOLUTION 2, 701 / 701 000 ML @ 50 mls/hr IVC .Q24H [facility] with M.v.i. Adult 10 ml Rx# :[id number] Intralipid 20% 250 ML @ 21 mls/ 250 / 250 hr IVPB DAILY@1700 [facility] Rx#: [id number] Zosyn 3.375 GM In Dextrose 5% ( 100 / 100 100 / 100 Minibag+) 100 ML 100 ML @ 25 mls/hr IVPB Q8H [facility] Rx#: [id number] Oral 480 / 480 0 / 0 0 / 0 Output: Urine 0 / 0 1000 / 1000 0 / 0 Wound Drainage 0 / 0 ERI #1 Right Abdomen 0 / 0 ERI#2 Right Abdomen 0 / 0 Other: Meal Dinner Percent of Meal Consumed 10% # Voids 1 # Bowel Movements 1 Blood Glucose* 144 131 121 - General physical appearance well developed, well nourished, no distress - Eyes other (no scleral icterus) - ENT normocephalic - Respiratory normal expansion, normal respiratory effort - Cardiovascular Cardiovascular exam: Present: RRR - Abdomen Abdomen: Present: soft, tender (along incision, but greatly improved) - Incision Incision: Present: clean and dry, intact - Integumentary other (no jaundice) - Psychiatric oriented to time, oriented to person, oriented to place - Labs 07/26/17 03:20 07/26/17 03:20 Diabetes panel 07/26/17 Range/Units 03:20 Sodium 136 (136-145) mEq/L Potassium 4.1 (3.5-4.5) mEq/L Chloride 103 (98-109) mEq/L Carbon Dioxide 26 (19-29) mEq/L BUN 22 (8-26) mg/dL Creatinine 1.57 H (0.72-1.25) mg/dL Glucose 108 H (70-99) mg/dL Calcium 8.8 (8.6-10.8) mg/dL Calcium panel 07/26/17 Range/Units 03:20 Calcium 8.8 (8.6-10.8) mg/dL Pituitary panel 07/26/17 Range/Units 03:20 Sodium 136 (136-145) mEq/L Potassium 4.1 (3.5-4.5) mEq/L Chloride 103 (98-109) mEq/L Carbon Dioxide 26 (19-29) mEq/L BUN 22 (8-26) mg/dL Creatinine 1.57 H (0.72-1.25) mg/dL Glucose 108 H (70-99) mg/dL Calcium 8.8 (8.6-10.8) mg/dL Adrenal panel 07/26/17 Range/Units 03:20 Sodium 136 (136-145) mEq/L Potassium 4.1 (3.5-4.5) mEq/L Chloride 103 (98-109) mEq/L Carbon Dioxide 26 (19-29) mEq/L BUN 22 (8-26) mg/dL Creatinine 1.57 H (0.72-1.25) mg/dL Glucose 108 H (70-99) mg/dL Calcium 8.8 (8.6-10.8) mg/dL - VTE Documentation of Mechanical Device: Graduated compression elastic hosiery Consult Discharge Plan - Plan Referrals: Nicolas Hagan MD [Primary Care Provider] -
[2017-07-26] MEDS: Metoprolol XL (24 HR) Succ 25 MG TAB.ER.24H PO SCH (12:21)
[2017-07-26] MEDS: Heparin 25,000 UNIT/500 ML D5W 25,000 UNIT/500 ML MLS IVC SCH (14:16)
[2017-07-26] MEDS ORDERED: Clinimix E 5%-15% SOLUTION 2,000 ML with MVI, adult with vitamin K 10 ML IVC SCH (17:00)
[2017-07-26] MEDS: *HR* Warfarin 2.5 MG TABLET PO SCH (17:28)
[2017-07-26] MEDS ORDERED: *HR* Warfarin 2.5 MG TABLET PO SCH (18:00)
[2017-07-27 05:19] LABS: Magnesium 1.6 mg/dL (1.6-2.6); Phosphorous 2.8 mg/dL (2.3-4.7)
[2017-07-27] MEDS: Pantoprazole 40 MG VIAL IVP SCH (05:54)
[2017-07-27] MEDS: Metoprolol XL (24 HR) Succ 25 MG TAB.ER.24H PO SCH (08:11)
[2017-07-27] MEDS: Famotidine 20 MG TABLET PO SCH (08:12)
[2017-07-27] MEDS: BUDESONIDE 9 MG PO SCH ×3 (08:13→21:23)
[2017-07-27 10:28] LABS: Alanine Aminotransferase 56 Units/L (0-55); Albumin 2.3 g/dL (3.5-5.0); Albumin/Globulin Ratio 0.5 (1.1-2.2); Alkaline Phosphatase 132 Units/L (38-126); Aspartate Amino Transferase 32 Units/L (5-34); BUN/Creatinine Ratio 15 (6-26); Bilirubin,Total 0.6 mg/dL (0.2-1.2); Blood Urea Nitrogen 21 mg/dL (8-26); Calcium 9.3 mg/dL (8.6-10.8); Carbon Dioxide 27 mEq/L (19-29); Chloride 103 mEq/L (98-109); Globulin 4.7 g/dL (2.4-3.5); Glucose 127 mg/dL (70-99); Osmolality,Calculated 289 (280-300); Sodium 137 mEq/L (136-145); eGFR For African Americans > 60 (> 60); eGFR For Non-African Americans 50 (> 60)
[2017-07-27] MEDS ORDERED: Magnesium Sulfate 2 GM in D5% in Water 100 ML IVPB ONE (10:41)
[2017-07-27 11:41] LABS: INR 1.1; Prothrombin Time 12.2 Seconds (9.4-12.1)
--- NOTE | 2017-07-27 13:38 | General Surgery Progress Note ---
Date of Encounter: 07/27/17 Time of Encounter: 07:40 - Assessment and Plan (1) Acute cholecystitis Current Visit: Yes Status: Inactive 71M POD#4 s/p lap con to open cholecystectomy with partial transection of CBD with repair over T-tube; pain controlled, afebrile; states he feels good overall ; cont reg diet cont activity d/c tpn (2) Cholelithiasis Current Visit: Yes Status: Inactive see above Qualifiers: Cholelithiasis location: gallbladder Cholecystitis presence: with cholecystitis Cholecystitis acuity: acute Biliary obstruction: without biliary obstruction Qualified Code(s): K80.00 - Calculus of gallbladder with acute cholecystitis without obstruction (3) Acute blood loss as cause of postoperative anemia Current Visit: Yes Status: Acute resolved (4) DVT (deep venous thrombosis) Current Visit: Yes Status: Acute transition to therapeutic lovenox cont with coumadin with plans to follow up with PCP for INR checks Qualifiers: DVT location: lower extremity Affected thrombotic vein of extremity: unspecified vein of extremity Chronicity: unspecified Laterality: bilateral Qualified Code(s): I82.403 - Acute embolism and thrombosis of unspecified deep veins of lower extremity, bilateral (5) DVT prophylaxis Current Visit: Yes Status: Acute see above (6) Crohns disease Current Visit: Yes Status: Acute appreciate GI recommendations - okay to take Crohn's medications Qualifiers: Gastrointestinal tract location: unspecified location Digestive disease complication type: without complication Qualified Code(s): K50.90 - Crohn's disease, unspecified, without complications (7) HTN (hypertension) Current Visit: Yes Status: Acute cont home meds Qualifiers: Hypertension type: essential hypertension Qualified Code(s): I10 - Essential (primary) hypertension (8) HLD (hyperlipidemia) Current Visit: Yes Status: Acute cont home meds Qualifiers: Hyperlipidemia type: unspecified Qualified Code(s): E78.5 - Hyperlipidemia , unspecified (9) On parenteral nutrition Current Visit: Yes Status: Acute d/c TPN Subjective Patient reports: no new complaints, feels better, still having pain, pain is less, tolerating liquids well, tolerating a regular diet, voiding w/o difficulty , flatus, bowel movement, afebrile Objective Vital Signs - Last 8 Hours Temp Pulse Resp BP Pulse Ox 07/27/17 10:59 98.5 F 85 14 104/61 95 07/27/17 07:35 98.3 F 79 14 115/71 95 Intake and Output 07/26/17 07/27/17 07/27/17 23:59 07:59 15:59 Intake Total 872 / 872 245 / 245 0 / 0 Output Total 500 / 500 400 / 400 0 / 0 Balance 372 / 372 -155 / -155 0 / 0 Intake: IV Fluids 712 / 712 145 / 145 Heparin 25,000 UNIT/500 ML D5W 171 / 171 145 / 145 25,000 unit In 500 ml @ 14 UNIT /KG/HR 22.848 mls/hr IVC . [id number] [facility] Rx#:[id number] Clinimix E 5%-15% SOLUTION 2, 441 / 441 000 ML @ 50 mls/hr IVC .Q24H [facility] with M.v.i. Adult 10 ml Rx# :[id number] Oral 160 / 160 100 / 100 0 / 0 Output: Urine 400 / 400 Stool 500 / 500 Wound Drainage 0 / 0 0 / 0 0 / 0 ERI #1 Right Abdomen 0 / 0 0 / 0 0 / 0 ERI#2 Right Abdomen 0 / 0 0 / 0 0 / 0 Other: Meal Dinner Percent of Meal Consumed 30% # Voids 1 # Bowel Movements 1 Blood Glucose* 113 109 120 - General physical appearance well developed - Respiratory normal expansion, normal respiratory effort - Cardiovascular Cardiovascular exam: Present: RRR - Abdomen Abdomen: Present: soft, tender (along incision) - Incision Incision: Present: clean and dry, intact - Neurologic CN 2-12 grossly intact - Psychiatric oriented to time, oriented to person, oriented to place - Labs 07/26/17 03:20 07/27/17 10:11 Diabetes panel 07/27/17 Range/Units 10:11 Sodium 137 (136-145) mEq/L Potassium 4.0 (3.5-4.5) mEq/L Chloride 103 (98-109) mEq/L Carbon Dioxide 27 (19-29) mEq/L BUN 21 (8-26) mg/dL Creatinine 1.40 H (0.72-1.25) mg/dL Glucose 127 H (70-99) mg/dL Calcium 9.3 (8.6-10.8) mg/dL AST 32 (5-34) Units/L ALT 56 H (0-55) Units/L Alkaline Phosphatase 132 H (38-126) Units/L Albumin 2.3 L (3.5-5.0) g/dL Calcium panel 07/27/17 07/27/17 Range/Units 04:30 10:11 Calcium 9.3 (8.6-10.8) mg/dL Phosphorus 2.8 (2.3-4.7) mg/dL Albumin 2.3 L (3.5-5.0) g/dL Pituitary panel 07/27/17 Range/Units 10:11 Sodium 137 (136-145) mEq/L Potassium 4.0 (3.5-4.5) mEq/L Chloride 103 (98-109) mEq/L Carbon Dioxide 27 (19-29) mEq/L BUN 21 (8-26) mg/dL Creatinine 1.40 H (0.72-1.25) mg/dL Glucose 127 H (70-99) mg/dL Calcium 9.3 (8.6-10.8) mg/dL Adrenal panel 07/27/17 Range/Units 10:11 Sodium 137 (136-145) mEq/L Potassium 4.0 (3.5-4.5) mEq/L Chloride 103 (98-109) mEq/L Carbon Dioxide 27 (19-29) mEq/L BUN 21 (8-26) mg/dL Creatinine 1.40 H (0.72-1.25) mg/dL Glucose 127 H (70-99) mg/dL Calcium 9.3 (8.6-10.8) mg/dL Total Bilirubin 0.6 (0.2-1.2) mg/dL AST 32 (5-34) Units/L ALT 56 H (0-55) Units/L Alkaline Phosphatase 132 H (38-126) Units/L Albumin 2.3 L (3.5-5.0) g/dL - VTE Documentation of Mechanical Device: Graduated compression elastic hosiery Consult Discharge Plan - Plan Referrals: Nicolas Hagan MD [Primary Care Provider] -
[2017-07-27] MEDS: Heparin 25,000 UNIT/500 ML D5W 25,000 UNIT/500 ML MLS IVC SCH (15:44)
[2017-07-27] MEDS: *HR* Warfarin 2.5 MG TABLET PO SCH (18:11)
[2017-07-27] MEDS: *HR* Enoxaparin 80 MG/0.8 ML SYRINGE SQ SCH (18:12)
[2017-07-27] MEDS: traMADol 50 MG TABLET PO PRN (19:50)
[2017-07-28] MEDS: Pantoprazole 40 MG VIAL IVP SCH (06:22)
[2017-07-28] MEDS: *HR* Enoxaparin 80 MG/0.8 ML SYRINGE SQ SCH (06:22)
[2017-07-28] MEDS: Ringers Solution, Lactated 1,000 ML IVC SCH ×2 (07:30→07:31)
[2017-07-28] MEDS: Ondansetron 4 MG/2 ML VIAL IVP SCH (07:31)
[2017-07-28] MEDS: BUDESONIDE 9 MG PO SCH (08:06)
[2017-07-28] MEDS: Metoprolol XL (24 HR) Succ 25 MG TAB.ER.24H PO SCH (08:07)
[2017-07-28] MEDS: Famotidine 20 MG TABLET PO SCH (08:07)
--- NOTE | 2017-07-28 09:37 | Discharge Summary ---
Date of Encounter: 07/28/17 Time of Encounter: 09:35 - Discharge Diagnosis (1) Acute cholecystitis Priority: Primary Status: Acute Comments: likely acute on chronic cholecystitis; awaiting pathology resolved after cholecystectomy; did require a T tube 2/2 partial transection of CBD no complications related to T tube (2) Cholelithiasis Priority: Secondary Status: Acute Comments: see above (3) Acute blood loss as cause of postoperative anemia Priority: Secondary Status: Resolved Comments: resolved; There was a large amount of blood loss due to having inflammation, likely residual effect from heparin gtt, and having to convert to open; resolved without need for blood transfusion (4) DVT (deep venous thrombosis) Priority: Secondary Status: Acute Comments: started on heparin gtt after reversed from coumadin; prior to discharge the patient was bridged with t-lovenox; will follow up with PCP for management (5) DVT prophylaxis Priority: Secondary Status: Acute Comments: see above (6) Crohns disease Priority: Secondary Status: Acute Comments: No acute issues related to Crohn's disease; okay to resume/continue home medications (7) HTN (hypertension) Priority: Secondary Status: Acute Comments: okay to resume home medications; care per primary care physician (8) HLD (hyperlipidemia) Priority: Secondary Status: Acute Comments: see above (9) On parenteral nutrition Priority: Secondary Status: Acute Comments: started due to NPO status before and after surgery was prolonged; once he was able to tolerate a diet an sustain himself, it was discontinued - Discharge Medications Prescriptions: OxyCODONE Immed Rel [Roxicodone 5 MG] 5 mg PO Q6HR PRN 7 Days #28 tablet PRN Reason: Pain Enoxaparin [Lovenox] 80 mg SQ Q12HCO 10 Days #20 syringe Cyclobenzaprine [Flexeril] 10 mg PO TID PRN 20 Days #60 tablet PRN Reason: Spasms Home Medications: Alendronate Sodium [Fosamax] 70 mg PO QWEEK 07/01/17 [History] Atorvastatin [Lipitor] 40 mg PO HS 07/01/17 [History] Budesonide [Entocort EC] 9 mg PO TID 07/01/17 [History] Cyanocobalamin (B-12) [Vitamin B12] 1,000 mcg IM QMONTH 07/01/17 [History] InFLIXimab [Remicade] 100 mg IVPB Q8W 07/01/17 [History] Lisinopril-HCTZ 10-12.5 [Prinzide 10-12.5] 0.5 tab PO DAILY 07/01/17 [History] Metoprolol Succinate 25 mg PO DAILY 07/01/17 [History] Multivit-Min/FA/Lycopen/Lutein [A Thru Z Select Multivit Tab] 1 tab PO DAILY [History] Potassium Chloride [Klor-Con 10] 10 meq PO TID 07/01/17 [History] Ranitidine HCl [Zantac] 150 mg PO BID 07/01/17 [History] Warfarin [Coumadin] 2.5 mg PO DAILY 07/01/17 [History] Acetaminophen [Tylenol] 650 mg PO Q6HR PRN tablet 07/28/17 [Rx] Cyclobenzaprine [Flexeril] 10 mg PO TID PRN 20 Days #60 tablet 07/28/17 [Rx] Docusate [Colace] 100 mg PO BID PRN capsule 07/28/17 [Rx] Enoxaparin [Lovenox] 80 mg SQ Q12HCO 10 Days #20 syringe 07/28/17 [Rx] OxyCODONE Immed Rel [Roxicodone 5 MG] 5 mg PO Q6HR PRN 7 Days #28 tablet [Rx] Allergies/Adverse Reactions: 3 Allergy/AdvReac Type Severity Reaction Status Date / Time No Known Allergies Allergy Verified 07/01/17 13:44 General Surgery Exam Initial Vital Signs Temp Pulse Resp BP Pulse Ox 98.7 F 100 19 132/80 95 07/17/17 19:10 07/17/17 19:10 07/17/17 19:10 07/17/17 19:10 07/17/17 19:10 - General physical appearance well developed, well nourished, no distress - Eyes other (no scleral icterus) - ENT normocephalic - Neck no lymphadectomy - Respiratory normal expansion, normal respiratory effort, clear to auscultation - Cardiovascular Cardiovascular exam: Present: RRR - Abdomen Abdomen general surgery: Present: soft, tender (along incision, but improved) Hernia: Present: none - Incision Incision: Present: clean and dry, intact (with ecchymosis) - Integumentary Integumentary general surgery: Present: warm and dry - Neurologic Present: CN 2-12 grossly intact - Psychiatric Psychiatric general surgery: Present: oriented to time Date of admission: 07/17/17 22:14 Primary care physician: Nicolas Hagan MD Consults: 07/18/17 14:48 Consult to Gastroenterology [CONS] Routine Consulting Provider: Gastroenterology Betty Reason for Consult: Spoke to Dr. Quinn. Managment of Crohn's medications ( Entocort and remicade) in the setting of planned surgical procedure in the next 24-48 hours. Time Notified: 14:49 Call Completed: Yes 07/20/17 09:52 consult to biomaterials engineer [Consult to Nutrition] [CONS] Routine Comment: total IVF (MIV and TPN) at 100 ml/hr Consulting Provider: NUTRITION Reason for Dietary Consult: TPN Start and Manage 07/21/17 11:20 Consult to Invasive Line Access Team [CONS] Routine Reason for Consult: Picc Line Insertion Line Type: PICC PICC line indications: Parental nutrition Time Notified: 11:20 Call Completed: Yes Discharging clinician: Blu Sawyer Anticipated date of discharge: 07/28/17 - Patient Status Disposition: Home, Self-Care Condition: Good Functional capacity at discharge: independent ambulation Overall status at discharge: patient is progressing back to baseline - Discharge Instructions Instructions: Chronic Hypertension (DC), Anemia (GEN) Follow Up With: Nicolas Hagan MD [Primary Care Provider] - Additional Instructions: Pain Narcotics are prescribed. 1-2 tabs every 6 hours. Please take with meals. DO NOT drive while taking narcotics. Activity As tolerated. However, I encourage you to limit heaving lifting and strenuous activity until evaluated in clinic. Diet As tolerated. Bowel Regimen As long as you are taking narcotics, please take the stool softner daily. Warnings If you experience significant redness around the incision or drainage from the incision that is purulent or malodorous, or you experience fevers, chills, or food intolerance (including nausea, vomiting, abdominal pain or distension), jaundice or yellow skin, eyes, tongue/cheek, yellow/greenish output in the ERI drains when they were once light red, or any symptoms you feel warrant evaluation, please call the office. If unable to reach the office, please go to nearest urgent care center or emergency department - Hospital Course Hospital course: Mr. Bowers is a 71 year old male admitted with acute cholecystitis; He has a PMH significant for crohn's disease s/p SBR x 2, DVT requiring coumadin, HTN. The patient was scheduled for surgery after reversal of his INR (which was at 3.8 at admission). He received vitamin K and FFP. Once he was reversed, due to elevated T bili, he was scheduled for an ERCP which demonstrated gallstones and biliary sludge. A stent was placed. He underwent surgery on 10/. Lap leann converted to open with subsequent partial transection of CBD requiring primary repair over a T-tube. Post operatively he recovered well and was started on TPN. By POD #4 he was ambulating in the hallway and tolerating liquids; We also clamped his T tube on POD #4. We were able to advance his diet to a regular diet on POD#5. We discontinued his TPN on POD#6. We started t-lovenox on POD #6 as well. POD #7 he met discharge criteria and was discharged home. He has 2 ERI drains, which are draining serosanquinous fluid, as well as his T-tube. - Time Spent with Patient Total time spent providing and/or coordinating discharge services with the patient, family, nursing staff, and his PCP was about 60 minutes: Specific discharge activities: activity as tolerated; just be congnizant of your drains. Simply keep track of the drainage in the ERI drains, specifically keep us alert if the drainage turns a more bilious (or dark green/yellow) color ; no driving on narocotics; diet as tolerated Labs on day of discharge: Labs from last 24 hours 07/27/17 07/27/17 07/27/17 15:56 11:20 10:11 PT INR Sodium 137 Potassium 4.0 Chloride 103 Carbon Dioxide 27 BUN 21 Creatinine 1.40 H Est GFR ( Amer) > 60 Est GFR (Non-Af Amer) 50 L BUN/Creatinine Ratio 15 Glucose 127 H POC Glucose 138 H 120 H Calculated Osmolality 289 Calcium 9.3 Total Bilirubin 0.6 AST 32 ALT 56 H Alkaline Phosphatase 132 H Serum Total Protein 7.0 Albumin 2.3 L Globulin 4.7 H Albumin/Globulin Ratio 0.5 L 07/27/17 04:30 PT 12.2 H INR 1.1 Sodium Potassium Chloride Carbon Dioxide BUN Creatinine Est GFR ( Amer) Est GFR (Non-Af Amer) BUN/Creatinine Ratio Glucose POC Glucose Calculated Osmolality Calcium Total Bilirubin AST ALT Alkaline Phosphatase Serum Total Protein Albumin Globulin Albumin/Globulin Ratio - Impressions ITS Impressions Chest X-Ray 07/18/17 07:58 IMPRESSION: 1. Mild bibasilar opacification, which may represent atelectasis. 2. Question of trace pleural effusions. 3. Mild elevation of the right hemidiaphragm. D/ / Thanh Velásquez MD / Thanh Velásquez MD Interpreting Provider: Thanh Velásquez MD Gallbladder Ultrasound 07/18/17 11:00 IMPRESSION: Sonographic findings are suggestive of acute cholecystitis. Hepatic steatosis. D/ / Lennox Castellon / Lennox Castellon Interpreting Provider: Lennox Castellon Abdomen MRI 07/19/17 11:42 IMPRESSION: 1. MRI findings continue to be consistent with acute cholecystitis as seen on CT dated 07/17/2017 and ultrasound dated 07/18/2017. Multiple stones are seen. Additionally, intrinsic high T1 signal intensity within the gallbladder is present which may represent hemorrhagic products. 2. No intra or extrahepatic biliary dilatation. No choledocholithiasis. 3. Trace right effusion. 4. Hepatic steatosis. D/ / 07/19/2017 14:15:20 Aimee Long MD / Vannessa Peck Interpreting Provider: Aimee Long MD Cath/Invasive Procedure 07/20/17 15:01 IMPRESSION: Unremarkable ERCP images. Please refer to the procedure report for further details. D/ / Terrence Santos / Terrence Santos Interpreting Provider: Terrence Santos Cholangiogram,Operative 07/21/17 00:00 IMPRESSION: Intraoperative cholangiogram, as described above. Please refer to operative report for more details. D/ / Mariano Valero MD / Mariano Valero MD Interpreting Provider: Mariano Valero MD Chest X-Ray 07/21/17 15:39 IMPRESSION: Right upper extremity PICC tip projects over the superior vena cava. Gastric drain side hole projects over the gastroesophageal junction. Advancement is recommended. Bibasilar bandlike opacities likely indicate atelectasis, similar to slightly progressed from 07/18/2017. D/ / Jin Chavez MD / Jin Chavez MD Interpreting Provider: Jin Chavez MD
[2017-07-28 11:19] VITALS: BP 122/64
== END 2017-07-28 13:52 | disposition home or self-care (01) | DRG 409 ==
LOC: 3ANU
PROVIDERS: ADMIT Surgery; ATTEND Surgery

== ENCOUNTER 2018-03-01 12:48 | Inpatient (IN) ==
--- NOTE | 2018-03-01 14:44 | Emergency Department Note ---
Disposition Clinical Impression: Low bicarbonate level Acute on chronic renal failure Qualifiers: Acute renal failure type: unspecified Chronic kidney disease stage: unspecified stage Qualified Code(s): N17.9 - Acute kidney failure, unspecified Anemia Qualifiers: Anemia type: unspecified type Qualified Code(s): D64.9 - Anemia, unspecified Leukocytosis Qualifiers: Leukocytosis type: unspecified Qualified Code(s): D72.829 - Elevated white blood cell count, unspecified Disposition: Admitted As Inpatient Condition: Good General Adult HPI - General Chief complaint: ED Recheck/Abnormal Lab/Rx Stated complaint: Admission for PANCHITO from Dr Shaw Time Seen by Provider: 03/01/18 13:48 Source: patient Limitations: no limitations - History of Present Illness Pain Scale: 0 - Related Data Home Medications Medication Instructions Recorded Confirmed Atorvastatin [Lipitor] 40 mg PO HS 07/01/17 03/01/18 Budesonide [Entocort EC] 9 mg PO TID 07/01/17 03/01/18 Cyanocobalamin (B-12) [Vitamin B12] 1,000 mcg IM QMONTH 07/01/17 03/01/18 InFLIXimab [Remicade] 100 mg IVPB Q8W 07/01/17 03/01/18 Metoprolol Succinate 25 mg PO DAILY 07/01/17 03/01/18 Multivit-Min/FA/Lycopen/Lutein [A 1 tab PO DAILY 07/01/17 03/01/18 Thru Z Select Multivit Tab] Potassium Chloride [Klor-Con 10] 10 meq PO TID 07/01/17 03/01/18 raNITIdine HCl [Zantac] 150 mg PO BID 07/01/17 03/01/18 Warfarin perPT [Coumadin perPT] 1.25 mg PO DAILY 03/01/18 03/01/18 Previous Rx's Medication Instructions Recorded Docusate [Colace] 100 mg PO BID PRN capsule 07/28/17 Allergies Allergy/AdvReac Type Severity Reaction Status Date / Time pravastatin AdvReac Fatigued Verified 03/01/18 12:52 Sulfa (Sulfonamide AdvReac Gastrointestinal Verified 03/01/18 12:52 Antibiotics) Upset Past Medical History - Past Medical History Medical history: Reports: DVT, hyperlipidemia, hypertension, other Surgical history: Reports: no surgical history, other Psychiatric history: Reports: no psych history - Social History Smoking Status: Former smoker Smokeless Tobacco Status: No Alcohol use: Reports: rarely Drug use: Reports: none Physical Exam - General Limitations: no limitations General appearance: alert, in no apparent distress Course Vital Signs Temperature 98.2 F 03/01/18 12:51 Pulse Rate 93 03/01/18 12:51 Respiratory Rate 18 03/01/18 12:51 O2 Sat by Pulse Oximetry 98 03/01/18 12:51 Temperature 98.0 F 03/01/18 17:49 Pulse Rate 85 03/01/18 17:49 Respiratory Rate 16 03/01/18 17:49 Blood Pressure 121/79 03/01/18 17:49 O2 Sat by Pulse Oximetry 100 03/01/18 18:21 Oxygen Delivery Oxygen Delivery Room Air Medical Decision Making - Lab Data Result diagrams: 03/01/18 13:48 03/01/18 13:48 Lab Results 03/01/18 03/01/18 03/01/18 Range/Units 13:48 13:48 13:48 WBC 16.5 H (4.3-11.1) K/mcL RBC 3.83 L (4.19-5.50) M/mcL Hgb 11.3 L (12.9-16.9) g/dL Hct 35.8 L (37.5-50.1) % MCV 93.5 (83.0-100.0) fL MCH 29.5 (28.0-33.3) pg MCHC 31.6 (31.6-35.5) g/dL RDW 16.1 H (11.5-14.5) % Plt Count 249 (140-400) K/mcL MPV 10.2 (9.4-12.4) fL Immature Gran % 1.7 (0-4) % Seg Neutrophils % 71.4 % Lymphocytes % 16.9 % Monocytes % 8.4 % Eosinophils % 0.8 % Basophils % 0.8 % Neutrophils # 11.8 H (1.6-8.9) K/mcL Lymphocytes # 2.8 (0.6-4.6) K/mcL Monocytes # 1.4 H (0.0-1.3) K/mcL Eosinophils # 0.1 (0.0-0.6) K/mcL Basophils # 0.1 (0.0-0.2) K/mcL PT 13.4 H (9.4-12.1) Seconds INR 1.2 Sodium 138 (136-145) mEq/L Potassium 5.0 (3.5-5.1) mEq/L Chloride 116 H (98-107) mEq/L Carbon Dioxide 11 L (23-29) mEq/L BUN 50 H (8-23) mg/dL Creatinine 4.03 H (0.70-1.30) mg/dL Est GFR ( Amer) 18 L (> 60) Est GFR (Non-Af Amer) 15 L (> 60) BUN/Creatinine Ratio 12 (6-26) Glucose 104 (70-105) mg/dL Calculated Osmolality 300 (280-300) Calcium 9.5 (8.6-10.3) mg/dL Attestation Statement - Attestation Attestation: I examined this patient and my medical decision-making was reviewed with the TWISTER TENDER/PA/Advanced Practice Nurse/Resident Physician. I agree with the documented findings, disposition and treatment plan as described except to the extent set forth below. I did see the patient is spoke with him and his . The patient is essentially asymptomatic at this time. Worsening renal function. Was sent for admission. Blood work is pending. Care will be coordinated with the head silverman [id number]
--- NOTE | 2018-03-01 14:57 | Emergency Department Note ---
Disposition Clinical Impression: Low bicarbonate level Acute on chronic renal failure Qualifiers: Acute renal failure type: unspecified Chronic kidney disease stage: unspecified stage Qualified Code(s): N17.9 - Acute kidney failure, unspecified Anemia Qualifiers: Anemia type: unspecified type Qualified Code(s): D64.9 - Anemia, unspecified Leukocytosis Qualifiers: Leukocytosis type: unspecified Qualified Code(s): D72.829 - Elevated white blood cell count, unspecified Disposition: Admitted As Inpatient Condition: Good Time of Disposition: 16:53 General Adult HPI - General Chief complaint: ED Recheck/Abnormal Lab/Rx Stated complaint: Admission for PANCHITO from Dr Shaw Time Seen by Provider: 03/01/18 13:48 Source: patient Mode of arrival: ambulatory Limitations: no limitations Nursing Notes Reviewed: Yes Vital Signs Reviewed: Yes - History of Present Illness HPI Narrative: Patient is a 72-year-old male that presents the emergency department for admission from the nephrology office. Patient states that he sees Dr. Shaw and he had recommended the patient come to the hospital to be admitted. Patient states that his GFR has been worsening. Patient states that he is having no symptoms at this time. He states that he has having no chest pain, short of breath, abdominal pain, fever, chills or any other symptoms at this time. Pain Scale: 0 - Related Data Home Medications Medication Instructions Recorded Confirmed Atorvastatin [Lipitor] 40 mg PO HS 07/01/17 03/01/18 Budesonide [Entocort EC] 9 mg PO TID 07/01/17 03/01/18 Cyanocobalamin (B-12) [Vitamin B12] 1,000 mcg IM QMONTH 07/01/17 03/01/18 InFLIXimab [Remicade] 100 mg IVPB Q8W 07/01/17 03/01/18 Metoprolol Succinate 25 mg PO DAILY 07/01/17 03/01/18 Multivit-Min/FA/Lycopen/Lutein [A 1 tab PO DAILY 07/01/17 03/01/18 Thru Z Select Multivit Tab] Potassium Chloride [Klor-Con 10] 10 meq PO TID 07/01/17 03/01/18 raNITIdine HCl [Zantac] 150 mg PO BID 07/01/17 03/01/18 Warfarin perPT [Coumadin perPT] 1.25 mg PO DAILY 03/01/18 03/01/18 Previous Rx's Medication Instructions Recorded Docusate [Colace] 100 mg PO BID PRN capsule 07/28/17 Allergies Allergy/AdvReac Type Severity Reaction Status Date / Time pravastatin AdvReac Fatigued Verified 03/01/18 12:52 Sulfa (Sulfonamide AdvReac Gastrointestinal Verified 03/01/18 12:52 Antibiotics) Upset All systems ED: reviewed and negative except as stated. Constitutional: Denies: fever, chills Cardiovascular: Denies: chest pain Respiratory: Denies: dyspnea Gastrointestinal: Denies: abdominal pain, nausea, vomiting Genitourinary: Denies: urgency, dysuria, frequency Past Medical History - Past Medical History Medical history: Reports: DVT, hyperlipidemia, hypertension, other Surgical history: Reports: no surgical history, other Psychiatric history: Reports: no psych history - Social History Smoking Status: Former smoker Smokeless Tobacco Status: No Alcohol use: Reports: rarely Drug use: Reports: none Physical Exam - General Limitations: no limitations General appearance: alert, in no apparent distress - Head Head exam: atraumatic, normocephalic - Eye Eye exam: Present: normal appearance, EOMI - Neck Neck exam: Present: normal inspection, full ROM, trachea midline - Respiratory Respiratory exam: Present: normal lung sounds bilaterally. Absent: respiratory distress, wheezes - Cardiovascular Cardiovascular exam: Present: regular rate, normal rhythm, normal heart sounds, +S1, +S2 - Abdominal Exam Abdominal exam: Present: soft, Non-Tender, normal bowel sounds - Neurological Exam Neurological exam: Present: alert, oriented X3 - Psychiatric Psychiatric exam: Present: normal affect, normal mood - Skin Skin exam: Present: warm, dry, intact Course Vital Signs Temperature 98.2 F 03/01/18 12:51 Pulse Rate 93 03/01/18 12:51 Respiratory Rate 18 03/01/18 12:51 O2 Sat by Pulse Oximetry 98 03/01/18 12:51 Temperature 98.0 F 03/01/18 17:49 Pulse Rate 85 03/01/18 17:49 Respiratory Rate 16 03/01/18 17:49 Blood Pressure 121/79 03/01/18 17:49 O2 Sat by Pulse Oximetry 100 03/01/18 18:21 Oxygen Delivery Oxygen Delivery Room Air Medical Decision Making - MDM Narrative Medical decision making narrative: Due to the patient presenting to the hospital for admission due to the patient' s kidney function we will obtain basic laboratory tests including a CBC, BMP and coags. Laboratory testing of returned we will contact Dr. Shaw and will admit to the hospitalist. Consult with Dr. Shaw and he is aware that the patient came to the hospital and is going to be admitted. He stated that he would likely do a renal biopsy and dialysis tomorrow. Patient did have an elevated creatinine and decrease in there GFR. INR is 1.2. Patient's potassium was 5.0. The patient had a significantly low bicarbonate of 11. Patient was admitted to the hospital by Dr. Carlisle and he spoke to Dr. Smith and she requested that the patient be started on a bicarbonate drip. This will be done prior to admission. Dr. Smith except the patient to their service. The patient be admitted to the hospitalist for further evaluation and management. - Lab Data Lab results reviewed: Yes I reviewed the patient's lab results. Result diagrams: 03/01/18 13:48 03/01/18 13:48 Lab Results 03/01/18 03/01/18 03/01/18 Range/Units 13:48 13:48 13:48 WBC 16.5 H (4.3-11.1) K/mcL RBC 3.83 L (4.19-5.50) M/mcL Hgb 11.3 L (12.9-16.9) g/dL Hct 35.8 L (37.5-50.1) % MCV 93.5 (83.0-100.0) fL MCH 29.5 (28.0-33.3) pg MCHC 31.6 (31.6-35.5) g/dL RDW 16.1 H (11.5-14.5) % Plt Count 249 (140-400) K/mcL MPV 10.2 (9.4-12.4) fL Immature Gran % 1.7 (0-4) % Seg Neutrophils % 71.4 % Lymphocytes % 16.9 % Monocytes % 8.4 % Eosinophils % 0.8 % Basophils % 0.8 % Neutrophils # 11.8 H (1.6-8.9) K/mcL Lymphocytes # 2.8 (0.6-4.6) K/mcL Monocytes # 1.4 H (0.0-1.3) K/mcL Eosinophils # 0.1 (0.0-0.6) K/mcL Basophils # 0.1 (0.0-0.2) K/mcL PT 13.4 H (9.4-12.1) Seconds INR 1.2 Sodium 138 (136-145) mEq/L Potassium 5.0 (3.5-5.1) mEq/L Chloride 116 H (98-107) mEq/L Carbon Dioxide 11 L (23-29) mEq/L BUN 50 H (8-23) mg/dL Creatinine 4.03 H (0.70-1.30) mg/dL Est GFR ( Amer) 18 L (> 60) Est GFR (Non-Af Amer) 15 L (> 60) BUN/Creatinine Ratio 12 (6-26) Glucose 104 (70-105) mg/dL Calculated Osmolality 300 (280-300) Calcium 9.5 (8.6-10.3) mg/dL - Radiology Data Radiology results reviewed: Yes I reviewed the patient's radiology results.
[2018-03-01 15:18] LABS: Basophils # 0.1 K/mcL (0.0-0.2); Basophils % 0.8 %; Eosinophils # 0.1 K/mcL (0.0-0.6); Eosinophils % 0.8 %; Hematocrit 35.8 % (37.5-50.1); Hemoglobin 11.3 g/dL (12.9-16.9); Immature Granulocytes % 1.7 % (0-4); Lymphocytes # 2.8 K/mcL (0.6-4.6); Lymphocytes % 16.9 %; Mean Corpuscular HGB Conc 31.6 g/dL (31.6-35.5); Mean Corpuscular Hemoglobin 29.5 pg (28.0-33.3); Mean Corpuscular Volume 93.5 fL (83.0-100.0); Mean Platelet Volume 10.2 fL (9.4-12.4); Monocytes # 1.4 K/mcL (0.0-1.3); Monocytes % 8.4 %; Neutrophils # 11.8 K/mcL (1.6-8.9); Platelet Count 249 K/mcL (140-400); Red Blood Count 3.83 M/mcL (4.19-5.50); Red Cell Distribution Width 16.1 % (11.5-14.5); Segmented Neutrophils % 71.4 %
[2018-03-01 15:25] LABS: INR 1.2; Prothrombin Time 13.4 Seconds (9.4-12.1)
[2018-03-01 15:53] LABS: Calcium 9.5 mg/dL (8.6-10.3)
--- NOTE | 2018-03-01 17:18 | Internal Med History&Physical ---
Date of Encounter: 03/01/18 Time of Encounter: 08:00 Internal Medicine - H&P: HPI Chief complaint: ABNORMAL LABS History of present illness: Mr. Bowers is a 72 year old male that presents the emergency department for admission from the nephrology office. Patient states that he sees Dr. Shaw and he had recommended the patient come to the hospital to be admitted. I spoke with Dr. Gresham who stated that the patient had progressive worsening of kidney function associated with subnephrotic proteinurea and negative serology work up and he would befit from renal BX to reach diagnosis. He was evaluated by the ER and his labs revealed sever metabolic acidosis. Past Med Surg Social Fam HX - Past Medical History Medical history: DVT, hyperlipidemia, hypertension, other Psychiatric history: no psych history - Past Surgical History Surgical History: no surgical history, other - Social History Smoking Status: Former smoker Smokeless Tobacco Status: No Alcohol use: rarely Drug use: none - Family History Mother Adopted: No Family Member Ethnicity: Non- Living Status: Hx Family Cardiac Disorders: Yes (hypertension) Hx Family Respiratory Disorders: No Hx Family Cancer: No Hx Family GI Disorders: No Hx Family Endocrine Disorder: No Hx Family Neuromuscular Disorders: No Hx Family Neurologic Disorders: No Hx Family HEENT Disorders: No Hx Family Autoimmune Disorders: No Father Adopted: No Family Member Ethnicity: Non- Living Status: Hx Family Cardiac Disorders: Yes Hx Family Respiratory Disorders: No Hx Family Cancer: No Hx Family GI Disorders: No Hx Family Endocrine Disorder: No Hx Family Neuromuscular Disorders: No Hx Family Neurologic Disorders: No Hx Family HEENT Disorders: No Hx Family Autoimmune Disorders: No Internal Medicine - H&P: Meds Atorvastatin [Lipitor] 40 mg PO HS 07/01/17 [History] Budesonide [Entocort EC] 6 mg PO DAILY 07/01/17 [History] Cyanocobalamin (B-12) [Vitamin B12] 1,000 mcg IM QMONTH 07/01/17 [History] InFLIXimab [Remicade] 100 mg IVPB Q8W 07/01/17 [History] Metoprolol Succinate 25 mg PO DAILY 07/01/17 [History] Multivit-Min/FA/Lycopen/Lutein [A Thru Z Select Multivit Tab] 1 tab PO DAILY [History] Potassium Chloride [Klor-Con 10] 10 meq PO TID 07/01/17 [History] raNITIdine HCl [Zantac] 150 mg PO BID 07/01/17 [History] Docusate [Colace] 100 mg PO BID PRN capsule 07/28/17 [Rx] Warfarin perPT [Coumadin perPT] 1.25 mg PO DAILY 03/01/18 [History] Ferrous Sulfate 325 mg PO Q48H #60 tablet 03/05/18 [Rx] 3 Allergy/AdvReac Type Severity Reaction Status Date / Time pravastatin AdvReac Fatigued Verified 03/01/18 12:52 Sulfa (Sulfonamide AdvReac Gastrointestinal Verified 03/01/18 12:52 Antibiotics) Upset All Systems PM: A 10-system review of systems was performed and is negative for pertinent findings except as documented above in the HPI. - Constitutional Constitutional: no chills, no fever(s), no night sweats - Cardiovascular Cardiovascular ROS IM: no chest pain, no diaphoresis, no dyspnea, no lightheadedness, no palpitations, no syncope - Respiratory Respiratory: no cough, no dyspnea, no wheezing, no excessive phlegm production - Gastrointestinal Gastrointestinal: nausea, vomiting, no abdominal pain, no diarrhea, no hematemesis, no hematochezia, no melena - Neurological Neurological ROS: no confusion, no convulsions, no focal weakness, no numbness, no tingling, no tremor(s) - Constitutional Vitals: Temp Pulse Resp BP Pulse Ox 98.2 F 83 18 116/57 100 03/01/18 13:03 03/01/18 16:50 03/01/18 16:50 03/01/18 16:50 03/01/18 16:50 Internal Med - H&P Results - Labs CBC & Chem 7: 03/05/18 06:55 03/05/18 06:55 - Assessment and plan (1) Acute on chronic renal failure Status: Acute Assessment and plan: The patient will be admitted to the medical floor, IV hydration with isotonic fluid rich in bicarb was started. Hold anticoagulation and keep NPO after midnight for renal BX. Renal dosing per current eGFR. Qualifiers: Acute renal failure type: unspecified Chronic kidney disease stage: unspecified stage Qualified Code(s): N17.9 - Acute kidney failure, unspecified ; N18.9 - Chronic kidney disease, unspecified (2) HTN (hypertension) Status: Chronic Assessment and plan: We will continue home meds. Qualifiers: Hypertension type: essential hypertension Qualified Code(s): I10 - Essential (primary) hypertension (3) Crohns disease Status: Acute Assessment and plan: Stable, no signs of exacerbation, The patient on Ramicade Q 8 weeks. Qualifiers: Gastrointestinal tract location: small intestine Digestive disease complication type: without complication Qualified Code(s): K50.00 - Crohn's disease of small intestine without complications (4) HLD (hyperlipidemia) Status: Acute Assessment and plan: We will cont home meds and obtain FLP in Am Qualifiers: Hyperlipidemia type: unspecified Qualified Code(s): E78.5 - Hyperlipidemia , unspecified (5) Metabolic acidemia Status: Acute Assessment and plan: The patient was started on isotonic fluid rich in bicarb. (6) DVT prophylaxis Status: Acute Assessment and plan: Place SCDs . - Time Spent With Patient Total time spent is greater than 50% in coordination of care (as documented) at patient's floor/unit and/or counseling patient:
[2018-03-01] MEDS: Sodium Bicarbonate 75 MEQ in 0.45 % Sodium Chloride 1,000 ML IVC SCH (17:25)
[2018-03-01] MEDS ORDERED: Naloxone 0.4 MG/ML INJ IVP PRN (21:12)
[2018-03-01 23:29] LABS: INR 1.3; Prothrombin Time 13.8 Seconds (9.4-12.1)
[2018-03-02 04:24] LABS: Basophils # 0.1 K/mcL (0.0-0.2); Basophils % 0.6 %; Eosinophils # 0.1 K/mcL (0.0-0.6); Eosinophils % 0.7 %; Hematocrit 29.8 % (37.5-50.1); Immature Granulocytes % 1.5 % (0-4); Lymphocytes % 17.2 %; Mean Corpuscular HGB Conc 32.6 g/dL (31.6-35.5); Mean Corpuscular Hemoglobin 29.4 pg (28.0-33.3); Mean Corpuscular Volume 90.3 fL (83.0-100.0); Mean Platelet Volume 10.4 fL (9.4-12.4); Monocytes # 1.2 K/mcL (0.0-1.3); Monocytes % 10.3 %; Neutrophils # 7.9 K/mcL (1.6-8.9); Platelet Count 208 K/mcL (140-400); Red Cell Distribution Width 15.9 % (11.5-14.5); Segmented Neutrophils % 69.7 %
[2018-03-02 04:25] LABS: Hemoglobin 9.7 g/dL (12.9-16.9)
[2018-03-02] MEDS: Sodium Bicarbonate 75 MEQ in 0.45 % Sodium Chloride 1,000 ML IVC SCH ×3 (04:33→22:10)
[2018-03-02 04:45] LABS: Albumin 3.1 g/dL (3.5-5.7); Bilirubin,Total 0.5 mg/dL (0.3-1.0); Calcium 8.3 mg/dL (8.6-10.3); Chol/HDL Ratio 2.5 (0-4.9); Magnesium 1.5 mg/dL (1.6-2.6); Phosphorous 4.9 mg/dL (2.7-4.5); Total Protein 6.1 g/dL (6.4-8.9)
[2018-03-02] MEDS: Multivit/Ca/Min/Fe/FA 1 TAB TABLET PO SCH (08:30)
[2018-03-02] MEDS: Metoprolol XL (24 HR) Succ 25 MG TAB.ER.24H PO SCH (08:30)
[2018-03-02] MEDS: Famotidine 20 MG TABLET PO SCH ×2 (08:30→20:34)
--- NOTE | 2018-03-02 08:42 | Nephrology Consult Note ---
Date of Encounter: 03/02/18 Time of Encounter: 08:36 Assessment and Plan (1) PANCHITO (acute kidney injury) Current Visit: Yes Status: Acute Progressive renal failure with essentially negative serologies but unexplained PANCHITO. He has subnephrotic proteinuria and improved metabolic acidosis. Started 1/2NS+75mEq bicarb gtt last night. I consulted IR this AM and the pt is NPO with an INR of only 1.3, Hgb >9, and controlled BPs; so he's ready for inpatient renal biopsy. I also coordinated with the [facility] department to arrange for a carrier to [facility] along with all the necessary notes and labs. Continue to follow a renal protective/conservative strategy by avoiding nephrotoxins (hold the low dose SYLVESTER as you have done) and continue volume expansion with IVF. His eGFR has started to stabilize at 15. Will closely follow with you. My colleague Dr. Myles will be on-call tomorrow. Thank you. (2) CKD (chronic kidney disease), stage III Current Visit: Yes Status: Acute CKD stage III vs rapidly progressive CKD (3) Metabolic acidosis Current Visit: Yes Status: Acute See above (4) HTN (hypertension) Current Visit: No Status: Chronic Hold the SYLVESTER. See above Qualifiers: Hypertension type: essential hypertension Qualified Code(s): I10 - Essential (primary) hypertension (5) Proteinuria Current Visit: Yes Status: Chronic See above Qualifiers: Proteinuria type: persistent Qualified Code(s): R80.1 - Persistent proteinuria, unspecified History of Present Illness - Reason for Consult Consult date: 03/01/18 Acute Kidney Injury, Chronic Kidney Disease Requesting physician: Natalia Smith - Chief Complaint Worsening fatigue and noted to have worsening renal failure - History of Present Illness Zhao Bowers is a very pleasant 72 y/o gentleman with a pmh of Crohns disease s/p multiple surgery, Cholecystitis s/p recent GB surgery and progressive renal failure who presented after seeing me in the office in which he was developing concerning symptoms of uremia and noted to have progressive renal failure. Overnight, he did not affirm N/V/D and has been NPO in anticipation for an inpatient renal biopsy. He was by himself during my interview and examination. He did not affirm flank pain, dysuria, oral ulcers, symptoms such as hemoptysis, any prior risk factors for HIV or syphillis or hepatitis; and, he denied CP, ShOB with exertion but he did affirm feeling so extremely fatigued that simple walking to the commode was exhausting. He voiced consent to proceed with the renal biopsy. I spoke with the [facility] department regarding this renal biopsy as well as IR. Past Med Surg Social Fam HX - Past Medical History Medical history: DVT, hyperlipidemia, hypertension, other Psychiatric history: no psych history - Past Surgical History Surgical History: no surgical history, other - Social History Smoking Status: Former smoker Smokeless Tobacco Status: No Alcohol use: rarely Drug use: none - Family History Mother Adopted: No Family Member Ethnicity: Non- Living Status: Hx Family Cardiac Disorders: Yes (hypertension) Hx Family Respiratory Disorders: No Hx Family Cancer: No Hx Family GI Disorders: No Hx Family Endocrine Disorder: No Hx Family Neuromuscular Disorders: No Hx Family Neurologic Disorders: No Hx Family HEENT Disorders: No Hx Family Autoimmune Disorders: No Father Adopted: No Family Member Ethnicity: Non- Living Status: Hx Family Cardiac Disorders: Yes Hx Family Respiratory Disorders: No Hx Family Cancer: No Hx Family GI Disorders: No Hx Family Endocrine Disorder: No Hx Family Neuromuscular Disorders: No Hx Family Neurologic Disorders: No Hx Family HEENT Disorders: No Hx Family Autoimmune Disorders: No Medications and Allergies Atorvastatin [Lipitor] 40 mg PO HS 07/01/17 [History] Budesonide [Entocort EC] 6 mg PO DAILY 07/01/17 [History] Cyanocobalamin (B-12) [Vitamin B12] 1,000 mcg IM QMONTH 07/01/17 [History] InFLIXimab [Remicade] 100 mg IVPB Q8W 07/01/17 [History] Metoprolol Succinate 25 mg PO DAILY 07/01/17 [History] Multivit-Min/FA/Lycopen/Lutein [A Thru Z Select Multivit Tab] 1 tab PO DAILY [History] Potassium Chloride [Klor-Con 10] 10 meq PO TID 07/01/17 [History] raNITIdine HCl [Zantac] 150 mg PO BID 07/01/17 [History] Docusate [Colace] 100 mg PO BID PRN capsule 07/28/17 [Rx] Warfarin perPT [Coumadin perPT] 1.25 mg PO DAILY 03/01/18 [History] 3 Allergy/AdvReac Type Severity Reaction Status Date / Time pravastatin AdvReac Fatigued Verified 03/01/18 12:52 Sulfa (Sulfonamide AdvReac Gastrointestinal Verified 03/01/18 12:52 Antibiotics) Upset Review of Systems All Systems: reviewed and no additional remarkable complaints except as stated Exam - Vital Signs Vital signs: Initial Vital Signs Temp Pulse Resp Pulse Ox 98.2 F 93 18 98 03/01/18 12:51 03/01/18 12:51 03/01/18 12:51 03/01/18 12:51 Vital Signs - Last 8 Hours Temp Pulse Resp BP Pulse Ox 03/02/18 06:49 98.2 F 84 14 134/68 98 03/02/18 05:21 98.1 F 76 17 151/72 97 Intake and Output 03/01/18 03/02/18 03/02/18 23:59 07:59 15:59 Intake Total 1075 / 1075 Balance 1075 / 1075 Intake: IV Fluids 1075 / 1075 Sodium Bicarbonate 75 MEQ In 0. 1075 / 1075 45% Sodium Chloride 1000 Ml 1000 Ml 1,000 ML @ 125 mls/hr IVC .[id number] [facility] Rx#:[id number] Other: Meal 1 lemon saxman melvin 2 jellos Stool Size Moderate Stool Characteristics Normal for Patient # Urine Diapers 2 # Bowel Movements 2 - General Appearance General appearance: appears started age, cachectic, fatigue, frail EENT: ATNC, PERRL, mucous membranes moist Additional Comments: No oral ulcers Neck: no carotid bruit, supple Respiratory: clear Cardiology: no murmurs, no edema, regular rate, regular rhythm, normal S1, normal S2 Gastrointestinal: normoactive bowel sounds, tenderness (mild RUQ ttp but no flank pain on palpation to either side), no guarding Integumentary: no rash, warm and dry Neurologic: no focal deficit, no asterixis, alert and oriented x3 Musculoskeletal: no deformities, no erythema, no cyanosis, no clubbing Psychiatric: mood/affect appropriate, cooperative Results - Lab Results 03/02/18 03:53 03/02/18 03:53 Most recent lab results Calcium 8.3 mg/dL (8.6-10.3) L 03/02/18 03:53 Phosphorus 4.9 mg/dL (2.7-4.5) H 03/02/18 03:53 Magnesium 1.5 mg/dL (1.6-2.6) L 03/02/18 03:53 I reviewed the progress notes, med lists, labs, vitals, imaging. Consult Discharge Plan - Plan Referrals: Nicolas Hagan MD [Primary Care Provider] -
[2018-03-02] MEDS ORDERED: (Budesonide [Entocort Ec] 9 MG) PO SCH (09:00)
[2018-03-02] MEDS ORDERED: BUDESONIDE 9 MG PO SCH (09:00)
--- NOTE | 2018-03-02 10:32 | Internal Med Progress Note ---
Date of Encounter: 03/02/18 Time of Encounter: 10:30 - Assessment and plan (1) Acute on chronic renal failure Current Visit: Yes Status: Acute Assessment and plan: Continue hydration with sodium bicarb. Renal following. Patient also reportedly had subnpehrotic range proteinuria. Plan for kidney biopsy today Qualifiers: Acute renal failure type: unspecified Chronic kidney disease stage: unspecified stage Qualified Code(s): N17.9 - Acute kidney failure, unspecified ; N18.9 - Chronic kidney disease, unspecified (2) Metabolic acidemia Current Visit: Yes Status: Acute Assessment and plan: Started on bicarb drip (3) DVT prophylaxis Current Visit: No Status: Acute Assessment and plan: Place SCDs . (4) Crohns disease Current Visit: No Status: Acute Assessment and plan: Stable, no signs of exacerbation, The patient on Ramicade Q 8 weeks. Qualifiers: Gastrointestinal tract location: small intestine Digestive disease complication type: without complication Qualified Code(s): K50.00 - Crohn's disease of small intestine without complications (5) HTN (hypertension) Current Visit: No Status: Acute Assessment and plan: We will continue home meds. Qualifiers: Hypertension type: essential hypertension Qualified Code(s): I10 - Essential (primary) hypertension (6) HLD (hyperlipidemia) Current Visit: No Status: Acute Assessment and plan: We will cont home meds and obtain FLP in Am Qualifiers: Hyperlipidemia type: unspecified Qualified Code(s): E78.5 - Hyperlipidemia , unspecified - Time Spent With Patient Total time spent is greater than 50% in coordination of care (as documented) at patient's floor/unit and/or counseling patient: - Subjective Interval history: No acute events overnight - Constitutional Vitals: Temp Pulse Resp BP Pulse Ox 98.2 F 84 14 134/68 98 03/02/18 06:49 03/02/18 06:49 03/02/18 06:49 03/02/18 06:49 03/02/18 06:49 - Head Head exam: Present: atraumatic, normocephalic - Eye Eye exam: Present: PERRL, conjuntiva pink, sclera anicteric Pupils: Present: PERRL - Neck Neck exam general surgery: Present: supple, trachea midline. Absent: lymphadenopathy - Respiratory Respiratory exam: Present: CTAB. Absent: accessory muscle use, rales, rhonchi, wheezes - Cardiovascular Cardiovascular exam: Present: RRR, +S1, +S2. Absent: diastolic murmur, gallop, rubs, systolic murmur - GI/Abdominal GI/Abdominal exam: Present: normal bowel sounds, soft, no peritoneal signs. Absent: distended, tenderness - Extremities Exam Extremities exam: Present: warm, radial pulses palpable and symmetrical. Absent : calf tenderness, cyanotic, pedal edema - Neurological Exam Neurological exam: Present: CN II-XII intact, oriented X3, no focal deficits. Absent: pronater drift, facial droop, speech deficit - Skin Skin exam: Present: dry, intact Internal Medicine: Result - Labs CBC & Chem 7: 03/02/18 03:53 03/02/18 03:53 Labs: Short CBC 03/02/18 Range/Units 03:53 WBC 11.4 H (4.3-11.1) K/mcL Hgb 9.7 L D (12.9-16.9) g/dL Hct 29.8 L (37.5-50.1) % Plt Count 208 (140-400) K/mcL Neutrophils # 7.9 (1.6-8.9) K/mcL BMP 03/02/18 03:53 Sodium 138 Potassium 4.0 Chloride 116 H Carbon Dioxide 13 L BUN 48 H Creatinine 3.88 H Glucose 91 Calcium 8.3 L Cardiac Enzymes 03/01/18 03/02/18 Range/Units 22:33 03:53 Troponin I < 0.03 < 0.03 (< 0.04) ng/mL Liver Function 03/02/18 Range/Units 03:53 Total Bilirubin 0.5 (0.3-1.0) mg/dL AST 24 (13-39) Units/L ALT 31 (7-52) Units/L Alkaline Phosphatase 64 (34-104) Units/L Albumin 3.1 L (3.5-5.7) g/dL - ABG Interpretation ABG results: PT/INR, D-dimer PT 13.8 Seconds (9.4-12.1) H 03/01/18 22:33 Consult Discharge Plan - Plan Referrals: Nicolas Hagan MD [Primary Care Provider] -
[2018-03-02 11:47] LABS: INR 1.7; Prothrombin Time 18.1 Seconds (9.4-12.1)
[2018-03-02 14:28] LABS: Bilirubin,Urine Negative (Negative); Blood,Urine Negative (Negative); Clarity,Urine Clear (Clear); Color,Urine Yellow (Yellow); Glucose,Urine (UA) Normal (Normal); Ketones,Urine Negative (Negative); Leukocyte Esterase,Urine Negative (Negative); Nitrite,Urine Negative (Negative); PH,Urine 5.5 pH Units (5.0-8.0); Protein,Urine Trace mg/dL (Neg-Trace); Specific Gravity,Urine 1.019 (1.010-1.025); Urobilinogen,Urine Normal (Normal)
[2018-03-02 14:31] LABS: Bacteria,Urine None Seen per hpf (None-Few); Hyaline Casts,Urine None Seen per lpf (None-Few); RBC,Urine 0-3 per hpf (0-3); Squamous Epithelial Cell,Urine Moderate per lpf (None-Few); WBC,Urine 0-3 per hpf (0-3)
[2018-03-02] MEDS: (Budesonide [Entocort Ec] 3 MG) PO SCH (16:24)
[2018-03-03 02:25] LABS: Hepatitis B Surface Antibody 0.38 mIU/mL; Hepatitis B Surface Antigen Nonreactive (Nonreactive)
[2018-03-03] MEDS: Sodium Bicarbonate 75 MEQ in 0.45 % Sodium Chloride 1,000 ML IVC SCH ×2 (06:02→17:31)
[2018-03-03 07:17] LABS: Albumin 2.8 g/dL (3.5-5.7); Calcium 8.3 mg/dL (8.6-10.3); Magnesium 1.5 mg/dL (1.6-2.6); Phosphorous 3.9 mg/dL (2.7-4.5); Potassium 3.6 mEq/L (3.5-5.1); Uric Acid 7.2 mg/dL (2.3-7.6)
[2018-03-03 07:32] LABS: Basophils % 0.3 %; Eosinophils # 0.1 K/mcL (0.0-0.6); Eosinophils % 0.6 %; Hematocrit 28.4 % (37.5-50.1); Hemoglobin 9.3 g/dL (12.9-16.9); Immature Granulocytes % 0.9 % (0-4); Lymphocytes # 2.4 K/mcL (0.6-4.6); Lymphocytes % 19.7 %; Mean Corpuscular HGB Conc 32.7 g/dL (31.6-35.5); Mean Corpuscular Hemoglobin 29.5 pg (28.0-33.3); Mean Corpuscular Volume 90.2 fL (83.0-100.0); Mean Platelet Volume 10.5 fL (9.4-12.4); Monocytes % 7.8 %; Neutrophils # 8.7 K/mcL (1.6-8.9); Platelet Count 199 K/mcL (140-400); Red Blood Count 3.15 M/mcL (4.19-5.50); Red Cell Distribution Width 15.9 % (11.5-14.5); Segmented Neutrophils % 70.7 %
[2018-03-03 08:32] LABS: INR 1.3; Prothrombin Time 13.8 Seconds (9.4-12.1)
[2018-03-03] MEDS: Multivit/Ca/Min/Fe/FA 1 TAB TABLET PO SCH (09:12)
[2018-03-03] MEDS: Famotidine 20 MG TABLET PO SCH ×2 (09:12→20:30)
[2018-03-03] MEDS: Metoprolol XL (24 HR) Succ 25 MG TAB.ER.24H PO SCH (09:13)
[2018-03-03] MEDS: (Budesonide [Entocort Ec] 3 MG) PO SCH (09:19)
[2018-03-03] MEDS ORDERED: *HR* Midazolam HCl 2 MG/2 ML VIAL IVP ONE (10:15)
[2018-03-03] MEDS ORDERED: *HR* FentaNYL (PF) 100 MCG/2 ML VIAL IVP ONE (10:16)
--- NOTE | 2018-03-03 10:22 | Pre-Sedation Evaluation ---
Pre-sedation evaluation - Pre-sedation checklist Date of procedure: 03/03/18 Procedure: renal biopsy Recent Vitals: Last Vital Signs Temp 98.7 F 03/03/18 07:11 Pulse 72 03/03/18 07:11 Resp 18 03/03/18 07:11 BP 119/69 03/03/18 07:11 Pulse Ox 96 03/03/18 07:47 Dietary Status: NPO after Midnight ASA Classification *see protocol: CLASS II-Mild systemic disease Plan of Care: Pt appropriate candidate for procedure/moderate/conscious sedation , Risks/benefits of procedure/sedation discussed w/ patient/family
--- NOTE | 2018-03-03 10:25 | Internal Med Progress Note ---
Date of Encounter: 03/03/18 Time of Encounter: 10:20 - Assessment and plan (1) Acute on chronic renal failure Current Visit: Yes Status: Acute Assessment and plan: Continue hydration with sodium bicarb. Renal following. Patient also reportedly had subnpehrotic range proteinuria. Biopsy canceled yesterday 2/2 to mildly elevated INR. Plan for kidney biopsy today Qualifiers: Acute renal failure type: unspecified Chronic kidney disease stage: unspecified stage Qualified Code(s): N17.9 - Acute kidney failure, unspecified ; N18.9 - Chronic kidney disease, unspecified (2) Metabolic acidemia Current Visit: Yes Status: Acute Assessment and plan: Started on bicarb drip. Renal following (3) DVT prophylaxis Current Visit: No Status: Acute Assessment and plan: Place SCDs . (4) Crohns disease Current Visit: No Status: Acute Assessment and plan: Stable, no signs of exacerbation, The patient on Ramicade Q 8 weeks. Qualifiers: Gastrointestinal tract location: small intestine Digestive disease complication type: without complication Qualified Code(s): K50.00 - Crohn's disease of small intestine without complications (5) HTN (hypertension) Current Visit: No Status: Chronic Assessment and plan: We will continue home meds. Qualifiers: Hypertension type: essential hypertension Qualified Code(s): I10 - Essential (primary) hypertension (6) HLD (hyperlipidemia) Current Visit: No Status: Acute Assessment and plan: We will cont home meds and obtain FLP in Am Qualifiers: Hyperlipidemia type: unspecified Qualified Code(s): E78.5 - Hyperlipidemia , unspecified - Time Spent With Patient Total time spent is greater than 50% in coordination of care (as documented) at patient's floor/unit and/or counseling patient: - Subjective Interval history: No acute events overnight - Constitutional Vitals: Temp Pulse Resp BP Pulse Ox 98.7 F 72 18 119/69 96 03/03/18 07:11 03/03/18 07:11 03/03/18 07:11 03/03/18 07:11 03/03/18 07:47 - Head Head exam: Present: atraumatic, normocephalic - Eye Eye exam: Present: PERRL, conjuntiva pink, sclera anicteric Pupils: Present: PERRL - Neck Neck exam general surgery: Present: supple, trachea midline. Absent: lymphadenopathy - Respiratory Respiratory exam: Present: CTAB. Absent: accessory muscle use, rales, rhonchi, wheezes - Cardiovascular Cardiovascular exam: Present: RRR, +S1, +S2. Absent: diastolic murmur, gallop, rubs, systolic murmur - GI/Abdominal GI/Abdominal exam: Present: normal bowel sounds, soft, no peritoneal signs. Absent: distended, tenderness - Extremities Exam Extremities exam: Present: warm, radial pulses palpable and symmetrical. Absent : calf tenderness, cyanotic, pedal edema - Neurological Exam Neurological exam: Present: CN II-XII intact, oriented X3, no focal deficits. Absent: pronater drift, facial droop, speech deficit - Skin Skin exam: Present: dry, intact Internal Medicine: Result - Labs CBC & Chem 7: 03/03/18 06:29 03/03/18 06:29 Labs: Short CBC 03/03/18 Range/Units 06:29 WBC 12.4 H (4.3-11.1) K/mcL Hgb 9.3 L (12.9-16.9) g/dL Hct 28.4 L (37.5-50.1) % Plt Count 199 (140-400) K/mcL Neutrophils # 8.7 (1.6-8.9) K/mcL BMP 03/03/18 06:29 Sodium 140 Potassium 3.6 Chloride 112 H Carbon Dioxide 19 L BUN 43 H Creatinine 3.39 H Glucose 105 Calcium 8.3 L Cardiac Enzymes 03/02/18 Range/Units 10:35 Troponin I < 0.03 (< 0.04) ng/mL Liver Function 03/03/18 Range/Units 06:29 Albumin 2.8 L (3.5-5.7) g/dL Urine 03/02/18 Range/Units 14:19 Urine Color Yellow (Yellow) Urine Clarity Clear (Clear) Urine pH 5.5 (5.0-8.0) pH Units Ur Specific [place] 1.019 (1.010-1.025) Urine Protein Trace (Neg-Trace) mg/dL Urine Glucose (UA) Normal (Normal) mg/dL - ABG Interpretation ABG results: PT/INR, D-dimer PT 13.8 Seconds (9.4-12.1) H 03/03/18 06:29 - VTE Documentation of Mechanical Device: Graduated compression elastic hosiery Consult Discharge Plan - Plan Referrals: Nicolas Hagan MD [Primary Care Provider] -
[2018-03-03 10:27] LABS: Bilirubin,Urine Negative (Negative); Blood,Urine Negative (Negative); Clarity,Urine Clear (Clear); Color,Urine Yellow (Yellow); Glucose,Urine (UA) Normal (Normal); Ketones,Urine Negative (Negative); Leukocyte Esterase,Urine Negative (Negative); Nitrite,Urine Negative (Negative); PH,Urine 5.5 pH Units (5.0-8.0); Protein,Urine Trace mg/dL (Neg-Trace); Specific Gravity,Urine 1.018 (1.010-1.025); Urobilinogen,Urine Normal (Normal)
[2018-03-03 10:30] LABS: Bacteria,Urine None Seen per hpf (None-Few); Hyaline Casts,Urine None Seen per lpf (None-Few); Squamous Epithelial Cell,Urine Moderate per lpf (None-Few); WBC,Urine 0-3 per hpf (0-3)
[2018-03-03] MEDS ORDERED: 0.9 % Sodium Chloride 500 ML ONE (10:37)
--- NOTE | 2018-03-03 10:56 | IR Procedure Note ---
Date of procedure: 03/03/18 Consent Obtained: Written consent Timeout: Correct patient and procedure verified, Time out performed, Skin prep completed Local anesthetic: Lidocaine 1% Indications: Renal failure Procedure Performed: Renal biopsy Was there an certified surgical assistant present: No Results/Findings: left kidney biopsy Estimated blood loss (cc): 0 Complications: None; Tolerated procedure well Post Procedure Treatment Plan: Monitor on floor Specimen: to path
--- NOTE | 2018-03-03 15:24 | Nephrology Progress Note ---
Date of Encounter: 03/04/18 Time of Encounter: 15:19 - Assessment and Plan (1) PANCHITO (acute kidney injury) Current Visit: Yes Status: Acute Patient with PANCHITO. His renal function is improving with hydration. His biopsy was delayed secondary to elevated INR. Avoid nephrotoxins. Adjust medications as needed. (2) Acute on chronic renal failure Current Visit: Yes Status: Acute See PANCHITO. Qualifiers: Acute renal failure type: unspecified Chronic kidney disease stage: unspecified stage Qualified Code(s): N17.9 - Acute kidney failure, unspecified ; N18.9 - Chronic kidney disease, unspecified Subjective Principal diagnosis: PANCHITO Interval history: Patient seen and evaluated. His family member is at his side. He has no new complaint. Objective - Vital Signs Vital signs: Vital Signs Temp Pulse Resp BP Pulse Ox 03/03/18 11:21 98.3 F 70 14 128/69 98 03/03/18 10:47 80 12 131/70 94 03/03/18 10:40 86 11 134/68 94 03/03/18 10:35 84 14 138/67 94 03/03/18 10:30 84 97 132/77 03/03/18 07:47 96 03/03/18 07:11 98.7 F 72 18 119/69 96 03/03/18 04:19 98.7 F 76 17 121/64 96 03/02/18 23:06 98.0 F 80 16 113/65 97 03/02/18 19:28 98.2 F 86 17 115/63 97 03/02/18 16:44 99.0 F 85 16 106/59 96 Intake and Output 03/02/18 03/03/18 03/03/18 23:59 07:59 15:59 Intake Total 1075 / 1075 1075 / 1075 240 / 240 Output Total 0 / 0 Balance 1075 / 1075 1075 / 1075 240 / 240 Intake: IV Fluids 1075 / 1075 1075 / 1075 Sodium Bicarbonate 75 MEQ In 0. 1075 / 1075 1075 / 1075 45% Sodium Chloride 1000 Ml 1000 Ml 1,000 ML @ 125 mls/hr IVC .[id number] [facility] Rx#:[id number] Oral 0 / 0 240 / 240 Output: Urine 0 / 0 Other: Meal Lunch Percent of Meal Consumed 85% # Voids 1 1 # Urine Diapers 1 # Bowel Movements 0 Weight 81.8 kg Patient Weight 03/03/18 23:59 Weight 81.8 kg - General Appearance General appearance: Present: well-developed, well-nourished EENT: Present: ATNC Neck: Present: supple Cardiology: Present: regular rate Integumentary: Present: warm and dry Neurologic: Present: alert and oriented x3 - Lab 03/03/18 06:29 03/03/18 06:29 Most recent lab results Calcium 8.3 mg/dL (8.6-10.3) L 03/03/18 06:29 Phosphorus 3.9 mg/dL (2.7-4.5) 03/03/18 06:29 Magnesium 1.5 mg/dL (1.6-2.6) L 03/03/18 06:29 - VTE Documentation of Mechanical Device: Graduated compression elastic hosiery Consult Discharge Plan - Plan Referrals: Nicolas Hagan MD [Primary Care Provider] -
[2018-03-04] MEDS: Sodium Bicarbonate 75 MEQ in 0.45 % Sodium Chloride 1,000 ML IVC SCH ×2 (03:11→19:36)
[2018-03-04] MEDS: Metoprolol XL (24 HR) Succ 25 MG TAB.ER.24H PO SCH (08:06)
[2018-03-04] MEDS: Famotidine 20 MG TABLET PO SCH ×2 (08:06→22:35)
[2018-03-04] MEDS: Multivit/Ca/Min/Fe/FA 1 TAB TABLET PO SCH (08:06)
[2018-03-04] MEDS ORDERED: Ondansetron 4 MG/2 ML VIAL IVP PRN (08:09)
--- NOTE | 2018-03-04 08:50 | Internal Med Progress Note ---
Date of Encounter: 03/04/18 Time of Encounter: 08:45 - Assessment and plan (1) Acute on chronic renal failure Current Visit: Yes Status: Acute Assessment and plan: Continue hydration with sodium bicarb. Renal following. Patient also reportedly had subnpehrotic range proteinuria. Had biopsy yesterday. Await renal recs for discharge planning Qualifiers: Acute renal failure type: unspecified Chronic kidney disease stage: unspecified stage Qualified Code(s): N17.9 - Acute kidney failure, unspecified ; N18.9 - Chronic kidney disease, unspecified (2) Metabolic acidemia Current Visit: Yes Status: Acute Assessment and plan: Started on bicarb drip. Renal following (3) DVT prophylaxis Current Visit: No Status: Acute Assessment and plan: Place SCDs . (4) Crohns disease Current Visit: No Status: Acute Assessment and plan: Stable, no signs of exacerbation, The patient on Ramicade Q 8 weeks. Qualifiers: Gastrointestinal tract location: small intestine Digestive disease complication type: without complication Qualified Code(s): K50.00 - Crohn's disease of small intestine without complications (5) HTN (hypertension) Current Visit: No Status: Chronic Assessment and plan: We will continue home meds. Qualifiers: Hypertension type: essential hypertension Qualified Code(s): I10 - Essential (primary) hypertension (6) HLD (hyperlipidemia) Current Visit: No Status: Acute Assessment and plan: We will cont home meds and obtain FLP in Am Qualifiers: Hyperlipidemia type: unspecified Qualified Code(s): E78.5 - Hyperlipidemia , unspecified - Time Spent With Patient Total time spent is greater than 50% in coordination of care (as documented) at patient's floor/unit and/or counseling patient: - Subjective Interval history: No acute events overnight. Had kidney biopsy in last 24hrs - Constitutional Vitals: Temp Pulse Resp BP Pulse Ox 98.1 F 71 16 128/68 93 03/04/18 07:51 03/04/18 07:51 03/04/18 07:51 03/04/18 07:51 03/04/18 07:51 - Head Head exam: Present: atraumatic, normocephalic - Eye Eye exam: Present: PERRL, conjuntiva pink, sclera anicteric Pupils: Present: PERRL - Neck Neck exam general surgery: Present: supple, trachea midline. Absent: lymphadenopathy - Respiratory Respiratory exam: Present: CTAB. Absent: accessory muscle use, rales, rhonchi, wheezes - Cardiovascular Cardiovascular exam: Present: RRR, +S1, +S2. Absent: diastolic murmur, gallop, rubs, systolic murmur - GI/Abdominal GI/Abdominal exam: Present: normal bowel sounds, soft, no peritoneal signs. Absent: distended, tenderness - Extremities Exam Extremities exam: Present: warm, radial pulses palpable and symmetrical. Absent : calf tenderness, cyanotic, pedal edema - Neurological Exam Neurological exam: Present: CN II-XII intact, oriented X3, no focal deficits. Absent: pronater drift, facial droop, speech deficit - Skin Skin exam: Present: dry, intact Internal Medicine: Result - Labs CBC & Chem 7: 03/04/18 09:10 03/04/18 09:10 Labs: Urine 03/03/18 Range/Units 09:40 Urine Color Yellow (Yellow) Urine Clarity Clear (Clear) Urine pH 5.5 (5.0-8.0) pH Units Ur Specific [place] 1.018 (1.010-1.025) Urine Protein Trace (Neg-Trace) mg/dL Urine Glucose (UA) Normal (Normal) mg/dL - ABG Interpretation ABG results: PT/INR, D-dimer PT 13.8 Seconds (9.4-12.1) H 03/03/18 06:29 - Impressions Impressions Renal Biopsy CT 03/03/18 00:00 IMPRESSION: 1. CT guided core needle biopsy left kidney as discussed above. D/ / Bull Mcdowell MD / Bull Mcdowell MD Interpreting Provider: Bull Mcdowell MD - VTE Documentation of Mechanical Device: Graduated compression elastic hosiery Consult Discharge Plan - Plan Instructions: Acute Kidney Injury (DC), Acute Kidney Injury (GEN), Chronic Kidney Disease (DC), Chronic Kidney Disease (GEN), Renal Failure Diet (DC) Referrals: Nicolas Hagan MD [Primary Care Provider] - (Please call and schedule a hospital follow up in 5-7 days with your PCP)
[2018-03-04 09:30] LABS: Basophils % 0.4 %; Eosinophils # 0.2 K/mcL (0.0-0.6); Eosinophils % 1.8 %; Hematocrit 23.1 % (37.5-50.1); Immature Granulocytes % 0.5 % (0-4); Lymphocytes % 19.5 %; Mean Corpuscular HGB Conc 34.6 g/dL (31.6-35.5); Mean Corpuscular Volume 89.5 fL (83.0-100.0); Monocytes # 1.1 K/mcL (0.0-1.3); Monocytes % 10.4 %; Neutrophils # 7.1 K/mcL (1.6-8.9); Platelet Count 140 K/mcL (140-400); Red Blood Count 2.58 M/mcL (4.19-5.50); Red Cell Distribution Width 15.5 % (11.5-14.5); Segmented Neutrophils % 67.4 %
[2018-03-04 09:47] LABS: Calcium 7.7 mg/dL (8.6-10.3); Magnesium 1.7 mg/dL (1.6-2.6); Phosphorous 3.1 mg/dL (2.7-4.5)
--- NOTE | 2018-03-04 10:22 | Discharge Summary ---
- NOTES TO OUTPATIENT PROVIDER Notes to Outpatient Provider: Follow up with practice clinician Date of Encounter: 03/05/18 Time of Encounter: 10:00 - Discharge Diagnosis (1) Acute on chronic renal failure Priority: Primary Status: Acute Assessment and Plan: 72 year old male that presenteed the emergency department for admission from the nephrology office. Patient states that he sees Dr. Shaw and he had recommended the patient come to the hospital to be admitted. Per Dr. Gresham, the patient had progressive worsening of kidney function associated with subnephrotic proteinurea and negative serology work up and wanted him to get a renal biopsy. Patient was noted to have metabolic acidosis on admisison and started on sodium bicarb. He got a biopsy done on 03/03, the results of which will be followed by renal. he had an improvement in his kidney function as well as correction of his metabolic acidosis and he was therefore discharged home in a stable condition. Qualifiers: Acute renal failure type: unspecified Chronic kidney disease stage: unspecified stage Qualified Code(s): N17.9 - Acute kidney failure, unspecified ; N18.9 - Chronic kidney disease, unspecified (2) Metabolic acidemia Priority: Secondary Status: Acute Assessment and Plan: Started on bicarb drip. Renal following (3) DVT prophylaxis Priority: Secondary Status: Acute Assessment and Plan: Place SCDs . (4) Crohns disease Priority: Secondary Status: Acute Assessment and Plan: Stable, no signs of exacerbation, The patient on Ramicade Q 8 weeks. Qualifiers: Gastrointestinal tract location: small intestine Digestive disease complication type: without complication Qualified Code(s): K50.00 - Crohn's disease of small intestine without complications (5) HTN (hypertension) Priority: Secondary Status: Chronic Qualifiers: Hypertension type: essential hypertension Qualified Code(s): I10 - Essential (primary) hypertension (6) HLD (hyperlipidemia) Priority: Secondary Status: Acute Qualifiers: Hyperlipidemia type: unspecified Qualified Code(s): E78.5 - Hyperlipidemia , unspecified Hospital course: Mr. Bowers is a 72 year old male - Time Spent with Patient Total time spent providing and/or coordinating discharge services: - Discharge Medications Prescriptions: Cyanocobalamin (B-12) [Vitamin B12] 1,000 mcg PO DAILY #60 tablet Ferrous Sulfate 325 mg PO Q48H #60 tablet Home Medications: Atorvastatin [Lipitor] 40 mg PO HS 07/01/17 [History] Budesonide [Entocort EC] 6 mg PO DAILY 07/01/17 [History] Cyanocobalamin (B-12) [Vitamin B12] 1,000 mcg IM QMONTH 07/01/17 [History] InFLIXimab [Remicade] 100 mg IVPB Q8W 07/01/17 [History] Metoprolol Succinate 25 mg PO DAILY 07/01/17 [History] Multivit-Min/FA/Lycopen/Lutein [A Thru Z Select Multivit Tab] 1 tab PO DAILY [History] Potassium Chloride [Klor-Con 10] 10 meq PO TID 07/01/17 [History] raNITIdine HCl [Zantac] 150 mg PO BID 07/01/17 [History] Docusate [Colace] 100 mg PO BID PRN capsule 07/28/17 [Rx] Warfarin perPT [Coumadin perPT] 1.25 mg PO DAILY 03/01/18 [History] Cyanocobalamin (B-12) [Vitamin B12] 1,000 mcg PO DAILY #60 tablet 03/05/18 [Rx] Ferrous Sulfate 325 mg PO Q48H #60 tablet 03/05/18 [Rx] Allergies/Adverse Reactions: 3 Allergy/AdvReac Type Severity Reaction Status Date / Time pravastatin AdvReac Fatigued Verified 03/01/18 12:52 Sulfa (Sulfonamide AdvReac Gastrointestinal Verified 03/01/18 12:52 Antibiotics) Upset Date of admission: 03/01/18 21:12 Primary care physician: Nicolas Hagan MD Consults: 03/02/18 07:24 Consult to Interventional Radiology [CONS] Routine Consulting Provider: Radiology Interventional Cols Reason for Consult: Please evaluate for renal biopsy today. Thank you Call Completed: No - Constitutional Vitals: Temp Pulse Resp BP Pulse Ox 98.1 F 71 16 128/68 93 03/04/18 07:51 03/04/18 07:51 03/04/18 07:51 03/04/18 07:51 03/04/18 07:51 - Head Head exam: Present: atraumatic, normocephalic - Eye Eye exam: Present: PERRL, conjuntiva pink, sclera anicteric Pupils: Present: PERRL - Neck Neck exam general surgery: Present: supple, trachea midline. Absent: lymphadenopathy - Respiratory Respiratory exam: Present: CTAB. Absent: accessory muscle use, rales, rhonchi, wheezes - Cardiovascular Cardiovascular exam: Present: RRR, +S1, +S2. Absent: diastolic murmur, gallop, rubs, systolic murmur - GI/Abdominal GI/Abdominal exam: Present: normal bowel sounds, soft, no peritoneal signs. Absent: distended, tenderness - Extremities Exam Extremities exam: Present: warm, radial pulses palpable and symmetrical. Absent : calf tenderness, cyanotic, pedal edema - Neurological Exam Neurological exam: Present: CN II-XII intact, oriented X3, no focal deficits. Absent: pronater drift, facial droop, speech deficit - Skin Skin exam: Present: dry, intact - Patient Status Disposition: Home, Self-Care Condition: Good Functional capacity at discharge: independent ambulation - Discharge Instructions Instructions: Acute Kidney Injury (DC), Acute Kidney Injury (GEN), Chronic Kidney Disease (DC), Chronic Kidney Disease (GEN), Renal Failure Diet (DC) Follow Up With: Nicolas Hagan MD [Primary Care Provider] - (Please call and schedule a hospital follow up in 5-7 days with your PCP) - VTE Documentation of Mechanical Device: Graduated compression elastic hosiery
[2018-03-04] MEDS ORDERED: Magnesium Oxide 400 MG TABLET PO SCH (12:30)
--- NOTE | 2018-03-04 12:55 | Nephrology Progress Note ---
Date of Encounter: 03/04/18 Time of Encounter: 12:53 - Assessment and Plan (1) PANCHITO (acute kidney injury) Current Visit: Yes Status: Acute Patient with PANCHITO/CKD. Preliminary biopsy results provided by Dr. Shaw revealed some fibrosis and mild ATN, but predominate calcium oxalate nephropathy. Patient reports he has passed a few stones in the past. His renal function is improving with hydration. Avoid nephrotoxins. Adjust medications as needed. He was given information on oxalate containing foods that he should avoid. Initially I recommended that the patient be discharged, however with his nausea he may not be able to adequately maintain hydration and I recommend continued in outpatient hospitalization for IV hydration and monitoring of his renal function. I will repeat his 24 hour urine. No acute need for renal replacement therapy. Metabolic acidosis was treated with intravenous sodium bicarbonate. Hypokalemia was addressed with potassium supplementation. 41 minutes were spent in the care of this patient with greater than one half of that time being spent in the coordination of care and/or counseling. (2) Acute on chronic renal failure Current Visit: Yes Status: Acute See PANCHITO. Qualifiers: Acute renal failure type: unspecified Chronic kidney disease stage: unspecified stage Qualified Code(s): N17.9 - Acute kidney failure, unspecified ; N18.9 - Chronic kidney disease, unspecified (3) Anemia Current Visit: Yes Status: Acute Patient with chronic anemia that has slightly worsened at that is likely secondary to hydration. We will follow hemoglobin levels. We will check iron stores, vitamin B-12, and folate. If hemoglobin decreases further consider transfusion. Qualifiers: Anemia type: unspecified type Qualified Code(s): D64.9 - Anemia, unspecified (4) Crohns disease Current Visit: No Status: Acute Continue home regimen. Per primary team. If patient's nausea continues may need GI to reevaluate. Patient thinks the ongoing nausea may be related to his potassium supplementation so I will discontinue his oral potassium supplements for now. Qualifiers: Gastrointestinal tract location: small intestine Digestive disease complication type: without complication Qualified Code(s): K50.00 - Crohn's disease of small intestine without complications (5) DVT (deep venous thrombosis) Current Visit: No Status: Acute Continue Coumadin. Qualifiers: DVT location: lower extremity Affected thrombotic vein of extremity: unspecified lower extremity distal vein Chronicity: unspecified Laterality: left Qualified Code(s): I82.4Z2 - Acute embolism and thrombosis of unspecified deep veins of left distal lower extremity Subjective Principal diagnosis: PANCHITO Interval history: Patient seen and evaluated. His is at his bedside and she participates in the history. Apparently overnight the patient has had significant nausea. He required antiemetics for his nausea. He denies abdominal pain he denies a change in his loose stool. He denies melena. He denies emesis. His nausea is preventing him from eating as usual. Objective - Vital Signs Vital signs: Vital Signs Temp Pulse Resp BP Pulse Ox 03/04/18 07:51 98.1 F 71 16 128/68 93 03/04/18 04:10 98.7 F 76 15 142/66 95 03/03/18 18:55 98.7 F 82 18 121/69 97 03/03/18 16:01 98.4 F 83 19 118/68 96 Intake and Output 03/03/18 03/04/18 03/04/18 23:59 07:59 15:59 Intake Total 0 / 0 1075 / 1075 120 / 120 Output Total 0 / 0 Balance 0 / 0 1075 / 1075 120 / 120 Intake: IV Fluids 1075 / 1075 Sodium Bicarbonate 75 MEQ In 0. 1075 / 1075 45% Sodium Chloride 1000 Ml 1000 Ml 1,000 ML @ 125 mls/hr IVC .[id number] [facility] Rx#:[id number] Oral 0 / 0 120 / 120 Output: Urine 0 / 0 Other: Meal Dinner Percent of Meal Consumed 40% # Voids 1 1 # Bowel Movements 1 Weight 80.195 kg Patient Weight 03/04/18 23:59 Weight 80.195 kg - General Appearance General appearance: Present: well-developed, well-nourished, obese EENT: Present: ATNC Neck: Present: supple Respiratory: Present: clear Additional Comments: He has a few rhonchi in the bases that clear with repeated inspiration. Cardiology: Present: no edema, regular rate, regular rhythm Gastrointestinal: Present: no tenderness, no guarding Integumentary: Present: warm and dry Neurologic: Present: alert and oriented x3 Musculoskeletal: Present: no cyanosis Psychiatric: Present: mood/affect appropriate - Lab 03/04/18 09:10 03/04/18 09:10 Most recent lab results Calcium 7.7 mg/dL (8.6-10.3) L 03/04/18 09:10 Phosphorus 3.1 mg/dL (2.7-4.5) 03/04/18 09:10 Magnesium 1.7 mg/dL (1.6-2.6) 03/04/18 09:10 - VTE Documentation of Mechanical Device: Graduated compression elastic hosiery Consult Discharge Plan - Plan Instructions: Acute Kidney Injury (DC), Acute Kidney Injury (GEN), Chronic Kidney Disease (DC), Chronic Kidney Disease (GEN), Renal Failure Diet (DC) Referrals: Nicolas Hagan MD [Primary Care Provider] - (Please call and schedule a hospital follow up in 5-7 days with your PCP)
[2018-03-04] MEDS ORDERED: 0.9 % Sodium Chloride 1,000 ML IVC SCH (13:00)
[2018-03-05 08:00] LABS: Basophils # 0.1 K/mcL (0.0-0.2); Basophils % 0.6 %; Eosinophils # 0.3 K/mcL (0.0-0.6); Eosinophils % 2.4 %; Hematocrit 25.6 % (37.5-50.1); Hemoglobin 8.6 g/dL (12.9-16.9); Immature Granulocytes % 0.6 % (0-4); Lymphocytes # 2.7 K/mcL (0.6-4.6); Lymphocytes % 23.3 %; Mean Corpuscular HGB Conc 33.6 g/dL (31.6-35.5); Mean Corpuscular Hemoglobin 30.6 pg (28.0-33.3); Mean Corpuscular Volume 91.1 fL (83.0-100.0); Mean Platelet Volume 10.6 fL (9.4-12.4); Monocytes # 1.1 K/mcL (0.0-1.3); Monocytes % 9.4 %; Neutrophils # 7.3 K/mcL (1.6-8.9); Nucleated Red Blood Cells 0.3 /100 WBC (0); Platelet Count 167 K/mcL (140-400); Red Blood Count 2.81 M/mcL (4.19-5.50); Red Cell Distribution Width 15.4 % (11.5-14.5); Segmented Neutrophils % 63.7 %
[2018-03-05 08:08] LABS: INR 1.1; Prothrombin Time 11.3 Seconds (9.4-12.1)
[2018-03-05 08:42] LABS: Vitamin B12 280 pg/mL (250-1100)
[2018-03-05 08:43] LABS: Calcium 7.9 mg/dL (8.6-10.3); Folate > 22.3 ng/mL (3.0-16.0); Magnesium 2.1 mg/dL (1.6-2.6); Potassium 3.5 mEq/L (3.5-5.1)
[2018-03-05] MEDS: Metoprolol XL (24 HR) Succ 25 MG TAB.ER.24H PO SCH (08:56)
[2018-03-05] MEDS: Multivit/Ca/Min/Fe/FA 1 TAB TABLET PO SCH (08:56)
[2018-03-05] MEDS: Famotidine 20 MG TABLET PO SCH (08:56)
--- NOTE | 2018-03-05 10:34 | Nephrology Progress Note ---
Date of Encounter: 03/05/18 Time of Encounter: 10:34 - Assessment and Plan (1) PANCHITO (acute kidney injury) Current Visit: Yes Status: Acute Patient with PANCHITO/CKD. Preliminary biopsy results provided by Dr. Shaw revealed some fibrosis and mild ATN, but predominate calcium oxalate nephropathy. Patient reports he has passed a few stones in the past. His renal function is improving with hydration. Avoid nephrotoxins. Adjust medications as needed. He was given information on oxalate containing foods that he should avoid. I will repeat his 24 hour urine which can be reviewed upon follow-up with Dr. Shaw. Patient will start with calcium supplementation. Further management of his calcium oxalate nephropathy will be performed by Dr. Shaw once the final renal pathology report is available and per the results of the 24-hour urine Patient is encouraged to consume enough liquids to create 2-3 L of urine daily. No acute need for renal replacement therapy. Metabolic acidosis was treated with intravenous sodium bicarbonate. Hypokalemia was addressed with potassium supplementation. He reports he was taking 20 meq tid of potassium supplementation. Will decrease to 20meq bid. Will trial liquid potassium since the pills seem to be a cause of his nausea. Check renal function panel, magnesium 3-4 days after discharge with labs to PCP and nephrology. He should follow-up with Dr. Shaw 2-6 weeks after discharge. Okay for discharge from a renal standpoint. Total time spent with this patient was 37 minutes with more than 1/2 of that time spent in coronation of care and/or counseling. . (2) Acute on chronic renal failure Current Visit: Yes Status: Acute See PANCHITO. Qualifiers: Acute renal failure type: unspecified Chronic kidney disease stage: unspecified stage Qualified Code(s): N17.9 - Acute kidney failure, unspecified ; N18.9 - Chronic kidney disease, unspecified (3) Anemia Current Visit: Yes Status: Acute Patient with chronic anemia iron and likely vitamin b12 deficiency along with CKD. Will give iv iron and recommend he is discharged on ferrous sulfate every other day and oral daily vitamin b12. This can be followed by his PCP or oil treater. Qualifiers: Anemia type: unspecified type Qualified Code(s): D64.9 - Anemia, unspecified (4) Crohns disease Current Visit: No Status: Acute Continue home regimen. Per primary team. If patient's nausea continues may need GI to reevaluate. Patient thinks the ongoing nausea may be related to his potassium supplementation so I will discontinue his tablet potassium supplements for now and replace with liquid potassium at reduced dose. . Qualifiers: Gastrointestinal tract location: small intestine Digestive disease complication type: without complication Qualified Code(s): K50.00 - Crohn's disease of small intestine without complications (5) DVT (deep venous thrombosis) Current Visit: No Status: Acute Continue Coumadin. Qualifiers: DVT location: lower extremity Affected thrombotic vein of extremity: unspecified lower extremity distal vein Chronicity: unspecified Laterality: left Qualified Code(s): I82.4Z2 - Acute embolism and thrombosis of unspecified deep veins of left distal lower extremity Subjective Principal diagnosis: PANCHITO Interval history: Patient seen and evaluated. Initially I just spoke with him. Later his His called me in the hallway and initiated a conversation about his care as well. The patient reports that his nausea has resolved. He is eating well he is ambulating in the halls and he has no new complaint. His had multiple questions that I answered. Objective - Vital Signs Vital signs: Vital Signs Temp Pulse Resp BP Pulse Ox 03/05/18 07:36 98.6 F 69 18 126/63 98 03/05/18 04:42 98.3 F 72 17 124/70 95 03/05/18 00:51 98.3 F 75 17 110/68 96 03/04/18 19:21 98.1 F 77 18 116/69 95 03/04/18 16:21 98.7 F 76 16 133/73 94 Intake and Output 03/04/18 03/05/18 03/05/18 23:59 07:59 15:59 Intake Total 1000 / 1000 240 / 240 Output Total 200 / 200 450 / 450 0 / 0 Balance -200 / -200 550 / 550 240 / 240 Intake: IV Fluids 1000 / 1000 0.9 % Sodium Chloride 1,000 ML 1000 / 1000 @ 75 mls/hr IVC .[id number] [facility] Rx #:[id number] Oral 240 / 240 Output: Urine 200 / 200 450 / 450 0 / 0 Other: Meal Breakfast Percent of Meal Consumed 100% Weight 79.2 kg Patient Weight 03/05/18 23:59 Weight 79.2 kg - General Appearance General appearance: Present: well-developed, well-nourished EENT: Present: ATNC Neck: Present: supple Cardiology: Present: regular rate Integumentary: Present: warm and dry Neurologic: Present: alert and oriented x3 Musculoskeletal: Present: no cyanosis Psychiatric: Present: mood/affect appropriate - Lab 03/05/18 06:55 03/05/18 06:55 Most recent lab results Calcium 7.9 mg/dL (8.6-10.3) L 03/05/18 06:55 Phosphorus 3.0 mg/dL (2.7-4.5) 03/05/18 06:55 Magnesium 2.1 mg/dL (1.6-2.6) 03/05/18 06:55 - VTE Documentation of Mechanical Device: Intermittent pneumatic compression device Consult Discharge Plan - Plan Instructions: Acute Kidney Injury (DC), Acute Kidney Injury (GEN), Chronic Kidney Disease (DC), Chronic Kidney Disease (GEN), Renal Failure Diet (DC) Referrals: Nicolas Hagan MD [Primary Care Provider] - (Please call and schedule a hospital follow up in 5-7 days with your PCP) Prescriptions: Cyanocobalamin (B-12) [Vitamin B12] 1,000 mcg PO DAILY #60 tablet Ferrous Sulfate 325 mg PO Q48H #60 tablet
[2018-03-05] MEDS ORDERED: Cyanocobalamin (B-12) 1,000 MCG/ML VIAL IM ONE (10:57)
[2018-03-05] MEDS ORDERED: Iron Sucrose Complex 500 MG in 0.9 % Sodium Chloride 250 ML IVPB ONE (11:00)
[2018-03-05 11:13] VITALS: BP 132/65
[2018-03-05] MEDS ORDERED: Potassium Chloride Elixir 20 MEQ/15 ML UDC PO SCH (11:15)
[2018-03-05] MEDS ORDERED: Magnesium Oxide 400 MG TABLET PO SCH (11:15)
[2018-03-05 14:42] LABS: Total Volume 24 Hour,Urine 1.43 Liters (0.80-1.80)
[2018-03-06] MEDS ORDERED: Famotidine 20 MG TABLET PO SCH (09:00)
[2018-03-06] MEDS ORDERED: Cyanocobalamin (B-12) 1,000 MCG TABLET PO SCH (09:00)
[2018-03-10 11:38] LABS: Urine Collection Duration 24 hr; Urine Collection Volume 1434 mL
[2018-03-10 13:47] LABS: Urine Creatinine mg/d 946 mg/d (800-2100)
[2018-03-13] MEDS ORDERED: Cyanocobalamin (B-12) 1,000 MCG/ML VIAL IM SCH (09:00)
== END 2018-03-05 18:00 | disposition home or self-care (01) | DRG 683 ==
LOC: 2ANU 12:48 → EMEROO 12:48 → 2ANU 17:35
PROVIDERS: ADMIT Internal Medicine Nephrology; ATTEND Internal Medicine Nephrology

== ENCOUNTER 2018-05-16 19:38 | Observation (INO) ==
[2018-05-16] MEDS ORDERED: 0.9 % Sodium Chloride 1,000 ML IVC ONE (19:54)
[2018-05-16] MEDS ORDERED: Ondansetron 4 MG/2 ML VIAL IVP ONE (19:54)
[2018-05-16] MEDS ORDERED: *HR* FentaNYL (PF) 100 MCG/2 ML VIAL IVP ONE (19:54)
[2018-05-16] MEDS ORDERED: Isovue-370 500 ML INFUS..BTL IV ONE (19:54)
[2018-05-16 20:49] LABS: Bilirubin,Urine Small (Negative); Blood,Urine Negative (Negative); Clarity,Urine Clear (Clear); Color,Urine Yellow (Yellow); Glucose,Urine (UA) Normal (Normal); Ketones,Urine 15 mg/dL (Negative); Leukocyte Esterase,Urine Negative (Negative); Nitrite,Urine Negative (Negative); Protein,Urine 30 mg/dL (Neg-Trace); Specific Gravity,Urine 1.011 (1.010-1.025); Urobilinogen,Urine Normal (Normal)
[2018-05-16 20:51] LABS: Bacteria,Urine None Seen per hpf (None-Few); Hyaline Casts,Urine None Seen per lpf (None-Few); Squamous Epithelial Cell,Urine Moderate per lpf (None-Few); WBC,Urine 0-3 per hpf (0-3)
[2018-05-16 20:57] LABS: Basophils # 0.1 K/mcL (0.0-0.2); Basophils % 0.9 %; Eosinophils # 0.1 K/mcL (0.0-0.6); Eosinophils % 1.1 %; Hematocrit 31.9 % (37.5-50.1); Hemoglobin 10.6 g/dL (12.9-16.9); Immature Granulocytes % 0.5 % (0-4); Lymphocytes # 2.3 K/mcL (0.6-4.6); Lymphocytes % 27.5 %; Mean Corpuscular HGB Conc 33.2 g/dL (31.6-35.5); Mean Corpuscular Hemoglobin 30.4 pg (28.0-33.3); Mean Corpuscular Volume 91.4 fL (83.0-100.0); Mean Platelet Volume 9.9 fL (9.4-12.4); Monocytes # 1.3 K/mcL (0.0-1.3); Monocytes % 15.2 %; Neutrophils # 4.5 K/mcL (1.6-8.9); Platelet Count 333 K/mcL (140-400); Red Blood Count 3.49 M/mcL (4.19-5.50); Red Cell Distribution Width 14.4 % (11.5-14.5); Segmented Neutrophils % 54.8 %
[2018-05-16 21:15] LABS: Albumin 2.6 g/dL (3.5-5.7); Albumin/Globulin Ratio 0.7 (1.1-2.2); Bilirubin,Total 0.6 mg/dL (0.3-1.0); Globulin 3.5 g/dL (2.4-3.5); Potassium 2.5 mEq/L (3.5-5.1); Total Protein 6.1 g/dL (6.4-8.9)
--- NOTE | 2018-05-16 21:15 | Emergency Department Note ---
Disposition Clinical Impression: Hypokalemia Intractable nausea and vomiting Qualifiers: Vomiting type: unspecified Qualified Code(s): R11.2 - Nausea with vomiting, unspecified Disposition: Admitted As Inpatient Condition: Fair Time of Disposition: 23:26 Nausea/Vomiting/Diarrhea HPI - General Chief complaint: ED Nausea/Vomiting/Diarrhea Stated complaint: "Nausea/Vomiting x6 Days" Time Seen by Provider: 05/16/18 19:52 Source: patient, family Limitations: no limitations Nursing Notes Reviewed: Yes Vital Signs Reviewed: Yes - History of Present Illness HPI Narrative: Patient is a 72-year-old male who presents to [facility] ED with a chief complaint of nausea and vomiting persistent for the last 6 days. Patient's past medical history is significant for Crohn's disease as well as kidney disease. Patient's states that patient was found to be hypokalemic several months ago and was started on potassium supplementation. However ever since he started the potassium tablets, he became very nauseated all the time. He then decided to come off this and then continued to have persistent nausea with vomiting. Patient had his lab work checked yesterday and was found to be very hypokalemic with a potassium of 2.7. There were sent in by their primary care physician for further evaluation. Patient currently denies any abdominal pain. States his nausea is currently controlled since he has been in the hospital. Patient does have loose stools recently due to him not being able to eat anything solid. Patient's states since Tuesday, he has only had a small amount of applesauce 2 days ago. Patient has become very weak and had a syncopal episode last in which he hit his head. Pt Subjective Complaint: nausea, vomiting, diarrhea Onset (ago): week(s) Associated Abdominal Pain: No Severity: moderate Improves with: nothing Worsens with: nonthing Associated symptoms: Reports: loss of appetite, nausea/vomiting, syncope, weakness. Denies: chest pain, cough, fever/chills, shortness of breath - Related Data Home Medications Medication Instructions Recorded Confirmed Atorvastatin [Lipitor] 40 mg PO HS 07/01/17 05/16/18 Cyanocobalamin (B-12) [Vitamin B12] 1,000 mcg IM QMONTH 07/01/17 05/16/18 InFLIXimab [Remicade] 100 mg IVPB Q8W 07/01/17 05/16/18 Multivit-Min/FA/Lycopen/Lutein [A 1 tab PO DAILY 07/01/17 05/16/18 Thru Z Select Multivit Tab] Potassium Chloride [Klor-Con 10] 10 meq PO 6XD 07/01/17 05/16/18 Lisinopril-HCTZ 10-12.5 [Prinzide 1 tab PO DAILY 05/16/18 05/16/18 10-12.5] Metoprolol Succinate [Toprol Xl] 25 mg PO DAILY 05/16/18 05/16/18 Ranitidine HCl [Acid Gis Engineer] 150 mg PO DAILY PRN 05/16/18 05/16/18 Warfarin Sodium [Warfarin Sodium] 0.5 mg PO MOWEFR 05/16/18 05/16/18 Warfarin Sodium [Warfarin Sodium] 1 mg PO SUTUTHSA 05/16/18 05/16/18 Previous Rx's Medication Instructions Recorded Ondansetron ODT [Zofran ODT] 4 mg SL Q4HR PRN #10 tab.rapdis 05/12/18 Allergies Allergy/AdvReac Type Severity Reaction Status Date / Time pravastatin AdvReac Fatigued Verified 05/11/18 23:55 Sulfa (Sulfonamide AdvReac Gastrointestinal Verified 05/11/18 23:55 Antibiotics) Upset All systems ED: reviewed and negative except as stated. Past Medical History - Past Medical History Attestation: Yes The following information was validated with the patient. Source: patient Medical history: Reports: DVT, hyperlipidemia, hypertension, renal disease, other Surgical history: Reports: no surgical history, other Psychiatric history: Reports: no psych history - Social History Smoking Status: Former smoker Smokeless Tobacco Status: No Alcohol use: Reports: rarely Drug use: Reports: none Physical Exam - General Limitations: no limitations General appearance: alert - Head Head exam: atraumatic, normocephalic, normal inspection - Eye Eye exam: Present: EOMI - ENT ENT exam: normal exam, normal oropharynx, mucous membranes moist - Neck Neck exam: Present: normal inspection, full ROM, trachea midline - Chest Chest inspection: Present: normal inspection, symmetric chest wall rise - Respiratory Respiratory exam: Present: normal lung sounds bilaterally - Cardiovascular Cardiovascular exam: Present: normal rhythm, tachycardia - Abdominal Exam Abdominal exam: Present: soft, Non-Tender. Absent: tenderness, distention, guarding, rebound, rigidity - Extremities Exam Extremities exam: Present: normal inspection, full ROM. Absent: tenderness, pedal edema - Back Exam Back exam: Present: normal inspection, full ROM. Absent: tenderness - Neurological Exam Neurological exam: Present: alert, oriented X3 - Psychiatric Psychiatric exam: Present: normal affect, normal mood - Skin Skin exam: Present: warm, dry, intact, normal color Course Course Narrative: Patient seen and examined. Persistent nausea and vomiting for the last 6 days. Basic lab work as well as CT of the head and CT abdomen and pelvis ordered. We will give a liter of fluids as well as Zofran for nausea. Patient was very hypokalemic yesterday with potassium of 2.7. We will go ahead and order repeat labs as well as start IV K rider. - Reevaluation(s) Reevaluation #1: Labwork shows a potassium of 2.5. 40 mEq of IV potassium ordered along with 40 mEq of oral potassium chloride to see if he tolerates this. Patient did have significant pain with infusion of the potassium chloride. He received 10 mEq and then per hospitalist recommendation, we will switch him to 1 L of IV fluids with 40 mEq potassium added into it. We will run this at 100 mL per hour. Patient's renal function appears as it has been improving with the creatinine down to 1.99. Since patient was recently weaned off Entocort, I suspect this may be a contributing factor to his recent discomfort. However his lab work and his blood pressure does not seem to reflect that he is in any adrenal crisis. I discussed the patient with hospitalist Dr. Alarcon who has accepted patient for admission for his hypokalemia and intractable nausea and vomiting. Time: 23:25 Vital Signs Temperature 98.3 F 05/16/18 19:46 Pulse Rate 113 05/16/18 19:46 Respiratory Rate 16 05/16/18 19:46 Blood Pressure 107/58 05/16/18 19:46 O2 Sat by Pulse Oximetry 98 05/16/18 19:46 Temperature 98.3 F 05/16/18 19:46 Pulse Rate 88 05/16/18 22:18 Respiratory Rate 17 05/16/18 22:18 Blood Pressure 136/63 05/16/18 22:18 O2 Sat by Pulse Oximetry 100 05/16/18 22:18 Oxygen Delivery Oxygen Delivery Room Air Nausea/Vomiting/Diarrhea - Medical Records Medical records reviewed: Yes I reviewed the patient's medical records. - Lab Data Lab results reviewed: Yes I reviewed the patient's lab results. Result diagrams: 05/16/18 19:54 05/16/18 19:54 Lab Results 05/16/18 05/16/18 05/16/18 Range/Units 19:54 19:54 20:37 WBC 8.2 (4.3-11.1) K/mcL RBC 3.49 L (4.19-5.50) M/mcL Hgb 10.6 L (12.9-16.9) g/dL Hct 31.9 L (37.5-50.1) % MCV 91.4 (83.0-100.0) fL MCH 30.4 (28.0-33.3) pg MCHC 33.2 (31.6-35.5) g/dL RDW 14.4 (11.5-14.5) % Plt Count 333 (140-400) K/mcL MPV 9.9 (9.4-12.4) fL Immature Gran % 0.5 (0-4) % Seg Neutrophils % 54.8 % Lymphocytes % 27.5 % Monocytes % 15.2 % Eosinophils % 1.1 % Basophils % 0.9 % Neutrophils # 4.5 (1.6-8.9) K/mcL Lymphocytes # 2.3 (0.6-4.6) K/mcL Monocytes # 1.3 (0.0-1.3) K/mcL Eosinophils # 0.1 (0.0-0.6) K/mcL Basophils # 0.1 (0.0-0.2) K/mcL Sodium 136 (136-145) mEq/L Potassium 2.5 L* (3.5-5.1) mEq/L Chloride 107 (98-107) mEq/L Carbon Dioxide 18 L (23-29) mEq/L BUN 11 (8-23) mg/dL Creatinine 1.99 H (0.70-1.30) mg/dL Est GFR ( Amer) 40 L (> 60) Est GFR (Non-Af Amer) 33 L (> 60) BUN/Creatinine Ratio 6 (6-26) Glucose 95 (70-105) mg/dL Calculated Osmolality 281 (280-300) Lactic Acid (0.5-2.2) mmol/L Calcium 8.0 L (8.6-10.3) mg/dL Magnesium 1.3 L (1.6-2.6) mg/dL Total Bilirubin 0.6 (0.3-1.0) mg/dL AST 37 (13-39) Units/L ALT 24 (7-52) Units/L Alkaline Phosphatase 115 H (34-104) Units/L Serum Total Protein 6.1 L (6.4-8.9) g/dL Albumin 2.6 L (3.5-5.7) g/dL Globulin 3.5 (2.4-3.5) g/dL Albumin/Globulin Ratio 0.7 L (1.1-2.2) Lipase 37 (11-82) Units/L Urine Color Yellow (Yellow) Urine Clarity Clear (Clear) Urine pH 6.0 (5.0-8.0) pH Units Ur Specific [place] 1.011 (1.010-1.025) Urine Protein 30 H (Neg-Trace) mg/dL Urine Glucose (UA) Normal (Normal) mg/dL Urine Ketones 15 H (Negative) mg/dL Urine Blood Negative (Negative) Urine Nitrite Negative (Negative) Urine Bilirubin Small H (Negative) Urine Urobilinogen Normal (Normal) mg/dL Ur Leukocyte Esterase Negative (Negative) Urine Microscopic RBC 5-15 H (0-3) per hpf Urine Microscopic WBC 0-3 (0-3) per hpf Ur Squamous Epith Cells Moderate H (None-Few) per lpf Urine Bacteria None Seen (None-Few) per hpf Hyaline Casts None Seen (None-Few) per lpf Ur Culture Indicated? NO (NO) 05/16/18 Range/Units 22:12 WBC (4.3-11.1) K/mcL RBC (4.19-5.50) M/mcL Hgb (12.9-16.9) g/dL Hct (37.5-50.1) % MCV (83.0-100.0) fL MCH (28.0-33.3) pg MCHC (31.6-35.5) g/dL RDW (11.5-14.5) % Plt Count (140-400) K/mcL MPV (9.4-12.4) fL Immature Gran % (0-4) % Seg Neutrophils % % Lymphocytes % % Monocytes % % Eosinophils % % Basophils % % Neutrophils # (1.6-8.9) K/mcL Lymphocytes # (0.6-4.6) K/mcL Monocytes # (0.0-1.3) K/mcL Eosinophils # (0.0-0.6) K/mcL Basophils # (0.0-0.2) K/mcL Sodium (136-145) mEq/L Potassium (3.5-5.1) mEq/L Chloride (98-107) mEq/L Carbon Dioxide (23-29) mEq/L BUN (8-23) mg/dL Creatinine (0.70-1.30) mg/dL Est GFR ( Amer) (> 60) Est GFR (Non-Af Amer) (> 60) BUN/Creatinine Ratio (6-26) Glucose (70-105) mg/dL Calculated Osmolality (280-300) Lactic Acid 1.2 (0.5-2.2) mmol/L Calcium (8.6-10.3) mg/dL Magnesium (1.6-2.6) mg/dL Total Bilirubin (0.3-1.0) mg/dL AST (13-39) Units/L ALT (7-52) Units/L Alkaline Phosphatase (34-104) Units/L Serum Total Protein (6.4-8.9) g/dL Albumin (3.5-5.7) g/dL Globulin (2.4-3.5) g/dL Albumin/Globulin Ratio (1.1-2.2) Lipase (11-82) Units/L Urine Color (Yellow) Urine Clarity (Clear) Urine pH (5.0-8.0) pH Units Ur Specific [place] (1.010-1.025) Urine Protein (Neg-Trace) mg/dL Urine Glucose (UA) (Normal) mg/dL Urine Ketones (Negative) mg/dL Urine Blood (Negative) Urine Nitrite (Negative) Urine Bilirubin (Negative) Urine Urobilinogen (Normal) mg/dL Ur Leukocyte Esterase (Negative) Urine Microscopic RBC (0-3) per hpf Urine Microscopic WBC (0-3) per hpf Ur Squamous Epith Cells (None-Few) per lpf Urine Bacteria (None-Few) per hpf Hyaline Casts (None-Few) per lpf Ur Culture Indicated? (NO) - Radiology Data Radiology results reviewed: Yes I reviewed the patient's radiology results. Abdomen/Pelvis CT 05/16/18 20:22 IMPRESSION: No definite acute abnormality identified. Diffuse fatty liver infiltration. Bilateral nonobstructing nephrolithiasis. Small hiatal hernia. Postsurgical changes. Probable urinary bladder mural thickening. That may be secondary to urinary bladder outlet obstruction secondary to the prostatic hypertrophy. However, correlate with any clinical evidence of infectious or inflammatory cystitis. D/ / Rohith Polanco MD / Rohith Polanco MD Interpreting Provider: Rohith Polanco MD Head CT 05/16/18 20:22 IMPRESSION: No acute intracranial abnormality. D/ / Rohith Polanco MD / Rohith Polanco MD Interpreting Provider: Rohith Polanco MD - EKG Data EKG attestation: Yes I reviewed and interpreted this EKG. EKG results narrative: EKG done at 2040 shows normal sinus rhythm with a rate of [address] elevation or depression. Normal axis.
[2018-05-16] MEDS ORDERED: 0.9 % Sodium Chloride 500 ML IVC ONE (21:22)
--- NOTE | 2018-05-16 21:22 | Emergency Department Note ---
Disposition Clinical Impression: Intractable nausea and vomiting, Hypokalemia Disposition: Admitted As Inpatient Condition: Fair Nausea/Vomiting/Diarrhea HPI - General Chief complaint: ED Nausea/Vomiting/Diarrhea Stated complaint: "Nausea/Vomiting x6 Days" Time Seen by Provider: 05/16/18 19:52 Source: patient, family Mode of arrival: ambulatory Limitations: no limitations Nursing Notes Reviewed: Yes Vital Signs Reviewed: Yes - Related Data Home Medications Medication Instructions Recorded Confirmed Atorvastatin [Lipitor] 40 mg PO HS 07/01/17 05/16/18 Cyanocobalamin (B-12) [Vitamin B12] 1,000 mcg IM QMONTH 07/01/17 05/16/18 InFLIXimab [Remicade] 100 mg IVPB Q8W 07/01/17 05/16/18 Multivit-Min/FA/Lycopen/Lutein [A 1 tab PO DAILY 07/01/17 05/16/18 Thru Z Select Multivit Tab] Potassium Chloride [Klor-Con 10] 10 meq PO 6XD 07/01/17 05/16/18 Lisinopril-HCTZ 10-12.5 [Prinzide 1 tab PO DAILY 05/16/18 05/16/18 10-12.5] Metoprolol Succinate [Toprol Xl] 25 mg PO DAILY 05/16/18 05/16/18 Ranitidine HCl [Acid Employee Benefits Attorney] 150 mg PO DAILY PRN 05/16/18 05/16/18 Warfarin Sodium [Warfarin Sodium] 0.5 mg PO MOWEFR 05/16/18 05/16/18 Warfarin Sodium [Warfarin Sodium] 1 mg PO SUTUTHSA 05/16/18 05/16/18 Previous Rx's Medication Instructions Recorded Ondansetron ODT [Zofran ODT] 4 mg SL Q4HR PRN #10 tab.rapdis 05/12/18 Allergies Allergy/AdvReac Type Severity Reaction Status Date / Time pravastatin AdvReac Fatigued Verified 05/11/18 23:55 Sulfa (Sulfonamide AdvReac Gastrointestinal Verified 05/11/18 23:55 Antibiotics) Upset Past Medical History - Past Medical History Medical history: Reports: DVT, hyperlipidemia, hypertension, renal disease, other Surgical history: Reports: no surgical history, other Psychiatric history: Reports: no psych history - Social History Smoking Status: Former smoker Smokeless Tobacco Status: No Alcohol use: Reports: rarely Drug use: Reports: none Physical Exam - General Limitations: no limitations General appearance: alert Course Vital Signs Temperature 98.3 F 05/16/18 19:46 Pulse Rate 113 05/16/18 19:46 Respiratory Rate 16 05/16/18 19:46 Blood Pressure 107/58 05/16/18 19:46 O2 Sat by Pulse Oximetry 98 05/16/18 19:46 Temperature 98.3 F 05/17/18 00:04 Pulse Rate 101 05/17/18 00:04 Respiratory Rate 17 05/17/18 00:04 Blood Pressure 114/74 05/17/18 00:04 O2 Sat by Pulse Oximetry 98 05/17/18 00:04 Oxygen Delivery Oxygen Delivery Room Air Nausea/Vomiting/Diarrhea - Lab Data Result diagrams: 05/16/18 19:54 05/16/18 19:54 Lab Results 05/16/18 05/16/18 05/16/18 Range/Units 19:54 19:54 20:37 WBC 8.2 (4.3-11.1) K/mcL RBC 3.49 L (4.19-5.50) M/mcL Hgb 10.6 L (12.9-16.9) g/dL Hct 31.9 L (37.5-50.1) % MCV 91.4 (83.0-100.0) fL MCH 30.4 (28.0-33.3) pg MCHC 33.2 (31.6-35.5) g/dL RDW 14.4 (11.5-14.5) % Plt Count 333 (140-400) K/mcL MPV 9.9 (9.4-12.4) fL Immature Gran % 0.5 (0-4) % Seg Neutrophils % 54.8 % Lymphocytes % 27.5 % Monocytes % 15.2 % Eosinophils % 1.1 % Basophils % 0.9 % Neutrophils # 4.5 (1.6-8.9) K/mcL Lymphocytes # 2.3 (0.6-4.6) K/mcL Monocytes # 1.3 (0.0-1.3) K/mcL Eosinophils # 0.1 (0.0-0.6) K/mcL Basophils # 0.1 (0.0-0.2) K/mcL Sodium 136 (136-145) mEq/L Potassium 2.5 L* (3.5-5.1) mEq/L Chloride 107 (98-107) mEq/L Carbon Dioxide 18 L (23-29) mEq/L BUN 11 (8-23) mg/dL Creatinine 1.99 H (0.70-1.30) mg/dL Est GFR ( Amer) 40 L (> 60) Est GFR (Non-Af Amer) 33 L (> 60) BUN/Creatinine Ratio 6 (6-26) Glucose 95 (70-105) mg/dL Calculated Osmolality 281 (280-300) Lactic Acid (0.5-2.2) mmol/L Calcium 8.0 L (8.6-10.3) mg/dL Magnesium 1.3 L (1.6-2.6) mg/dL Total Bilirubin 0.6 (0.3-1.0) mg/dL AST 37 (13-39) Units/L ALT 24 (7-52) Units/L Alkaline Phosphatase 115 H (34-104) Units/L Serum Total Protein 6.1 L (6.4-8.9) g/dL Albumin 2.6 L (3.5-5.7) g/dL Globulin 3.5 (2.4-3.5) g/dL Albumin/Globulin Ratio 0.7 L (1.1-2.2) Lipase 37 (11-82) Units/L Urine Color Yellow (Yellow) Urine Clarity Clear (Clear) Urine pH 6.0 (5.0-8.0) pH Units Ur Specific [place] 1.011 (1.010-1.025) Urine Protein 30 H (Neg-Trace) mg/dL Urine Glucose (UA) Normal (Normal) mg/dL Urine Ketones 15 H (Negative) mg/dL Urine Blood Negative (Negative) Urine Nitrite Negative (Negative) Urine Bilirubin Small H (Negative) Urine Urobilinogen Normal (Normal) mg/dL Ur Leukocyte Esterase Negative (Negative) Urine Microscopic RBC 5-15 H (0-3) per hpf Urine Microscopic WBC 0-3 (0-3) per hpf Ur Squamous Epith Cells Moderate H (None-Few) per lpf Urine Bacteria None Seen (None-Few) per hpf Hyaline Casts None Seen (None-Few) per lpf Ur Culture Indicated? NO (NO) 05/16/18 Range/Units 22:12 WBC (4.3-11.1) K/mcL RBC (4.19-5.50) M/mcL Hgb (12.9-16.9) g/dL Hct (37.5-50.1) % MCV (83.0-100.0) fL MCH (28.0-33.3) pg MCHC (31.6-35.5) g/dL RDW (11.5-14.5) % Plt Count (140-400) K/mcL MPV (9.4-12.4) fL Immature Gran % (0-4) % Seg Neutrophils % % Lymphocytes % % Monocytes % % Eosinophils % % Basophils % % Neutrophils # (1.6-8.9) K/mcL Lymphocytes # (0.6-4.6) K/mcL Monocytes # (0.0-1.3) K/mcL Eosinophils # (0.0-0.6) K/mcL Basophils # (0.0-0.2) K/mcL Sodium (136-145) mEq/L Potassium (3.5-5.1) mEq/L Chloride (98-107) mEq/L Carbon Dioxide (23-29) mEq/L BUN (8-23) mg/dL Creatinine (0.70-1.30) mg/dL Est GFR ( Amer) (> 60) Est GFR (Non-Af Amer) (> 60) BUN/Creatinine Ratio (6-26) Glucose (70-105) mg/dL Calculated Osmolality (280-300) Lactic Acid 1.2 (0.5-2.2) mmol/L Calcium (8.6-10.3) mg/dL Magnesium (1.6-2.6) mg/dL Total Bilirubin (0.3-1.0) mg/dL AST (13-39) Units/L ALT (7-52) Units/L Alkaline Phosphatase (34-104) Units/L Serum Total Protein (6.4-8.9) g/dL Albumin (3.5-5.7) g/dL Globulin (2.4-3.5) g/dL Albumin/Globulin Ratio (1.1-2.2) Lipase (11-82) Units/L Urine Color (Yellow) Urine Clarity (Clear) Urine pH (5.0-8.0) pH Units Ur Specific [place] (1.010-1.025) Urine Protein (Neg-Trace) mg/dL Urine Glucose (UA) (Normal) mg/dL Urine Ketones (Negative) mg/dL Urine Blood (Negative) Urine Nitrite (Negative) Urine Bilirubin (Negative) Urine Urobilinogen (Normal) mg/dL Ur Leukocyte Esterase (Negative) Urine Microscopic RBC (0-3) per hpf Urine Microscopic WBC (0-3) per hpf Ur Squamous Epith Cells (None-Few) per lpf Urine Bacteria (None-Few) per hpf Hyaline Casts (None-Few) per lpf Ur Culture Indicated? (NO) Attestation Statement - Attestation Attestation: I, Doron Bunn, examined this patient and my medical decision-making was reviewed with the LANGUAGE TRANSLATOR/PA/Advanced Practice Nurse/Resident Physician. I agree with the documented findings, disposition and treatment plan as described except to the extent set forth below. 72-year-old female presents emergency Department with concerns of persistent nausea and vomiting. Patient states he has had nausea and vomiting intermittently over the past month. He recently became very lightheaded and passed out 5 days ago, he hit his head and had a laceration to the right ear and the right upper extremity. Patient also states that he had injury to his left ankle however he does not fit to be imaged here today as he states that it is continually improving. Patient has a history of hypokalemia, he is supposed to be taking potassium replacement however he is unable to tolerate the medication. Patient has a history of stage IV renal failure per the patient and follows Dr. Shaw. Patient denies chest pain, shortness of breath, hematochezia, melena. Laboratory evaluation shows hypokalemia of 2.5. Patient will be admitted to the hospital as he is unable to tolerate by mouth replacement at home due to persistent nausea and vomiting. Repeat EKG shows normal sinus rhythm with a rate of 90 without evidence of dysrhythmia or evidence of STEMI. No evidence of Uwave
[2018-05-16] MEDS ORDERED: 0.9 % Sodium Chloride 500 ML ONE (22:10)
[2018-05-16] MEDS ORDERED: 0.9 % Sodium Chloride 500 ML IVC SCH (22:15)
[2018-05-16] MEDS ORDERED: Naloxone 0.4 MG/ML INJ IVP PRN (22:47)
[2018-05-16] MEDS ORDERED: Famotidine 20 MG TABLET PO PRN (22:48)
[2018-05-16 22:49] LABS: Magnesium 1.3 mg/dL (1.6-2.6)
[2018-05-16] MEDS ORDERED: Warfarin perPT PO SCH (23:00)
--- NOTE | 2018-05-16 23:55 | Internal Med History&Physical ---
Date of Encounter: 05/16/18 Time of Encounter: 23:20 Internal Medicine - H&P: HPI Chief complaint: generalized weakness History of present illness: Mr. Bowers is a 72 year old male with history of CKD, chronic hypocalcemia, hypertension, hyperlipidemia, DVT, Crohn's disease, presented to the ED with five-day history of nausea and vomiting. Associated with mild epigastric/right upper quadrant pain. He states that he started vomiting since last , multiple episodes, nonbilious, nonbloody, and nonprojectile. Vomiting slowed down over the last 2 days and he only had 1 episode for the last 48 hours. However, he felt weak and suffered an episode of fall yesterday which resulted in the laceration of right arm and back of his right ear. Denies any prodromal symptoms prior to the fall. No chest pain, shortness of breath, cough, sputum production, or dysuria. No joint pain or rash. In the ER, he was afebrile and hemodynamically stable. Head CT did not show any acute intracranial processes. Abdominal CT was unremarkable except for probable urinary bladder mural thickening. Labs revealed stable hemoglobin of 10.6, CO2 of 18, creatinine of 1.99 which is better than his baseline. Lactic acid was normal, however potassium was noted to be low at 2.5 again along with low magnesium of 1.3. EKG NSR without any U wave. He was intolerant to PO potassium supplementation and hence admitted for IV supplementation. Past Med Surg Social Fam HX - Past Medical History Medical history: DVT, hyperlipidemia, hypertension, renal disease, other Additional medical history: Crohns Psychiatric history: no psych history - Past Surgical History Surgical History: no surgical history, other - Social History Smoking Status: Former smoker Smokeless Tobacco Status: No Alcohol use: rarely Drug use: none - Family History Mother Adopted: No Family Member Ethnicity: Non- Living Status: Hx Family Cardiac Disorders: Yes (hypertension) Hx Family Respiratory Disorders: No Hx Family Cancer: No Hx Family GI Disorders: No Hx Family Endocrine Disorder: No Hx Family Neuromuscular Disorders: No Hx Family Neurologic Disorders: No Hx Family HEENT Disorders: No Hx Family Autoimmune Disorders: No Father Adopted: No Family Member Ethnicity: Non- Living Status: Hx Family Cardiac Disorders: Yes Hx Family Respiratory Disorders: No Hx Family Cancer: No Hx Family GI Disorders: No Hx Family Endocrine Disorder: No Hx Family Neuromuscular Disorders: No Hx Family Neurologic Disorders: No Hx Family HEENT Disorders: No Hx Family Autoimmune Disorders: No Internal Medicine - H&P: Meds Atorvastatin [Lipitor] 40 mg PO HS 07/01/17 [History] Cyanocobalamin (B-12) [Vitamin B12] 1,000 mcg IM QMONTH 07/01/17 [History] InFLIXimab [Remicade] 100 mg IVPB Q8W 07/01/17 [History] Multivit-Min/FA/Lycopen/Lutein [A Thru Z Select Multivit Tab] 1 tab PO DAILY [History] Potassium Chloride [Klor-Con 10] 10 meq PO 6XD 07/01/17 [History] Ondansetron ODT [Zofran ODT] 4 mg SL Q4HR PRN #10 tab.rapdis 05/12/18 [Rx] Lisinopril-HCTZ 10-12.5 [Prinzide 10-12.5] 1 tab PO DAILY 05/16/18 [History] Metoprolol Succinate [Toprol Xl] 25 mg PO DAILY 05/16/18 [History] Ranitidine HCl [Acid Lidding Machine Operator] 150 mg PO DAILY PRN 05/16/18 [History] Warfarin Sodium [Warfarin Sodium] 0.5 mg PO MOWEFR 05/16/18 [History] Warfarin Sodium [Warfarin Sodium] 1 mg PO SUTUTHSA 05/16/18 [History] 3 Allergy/AdvReac Type Severity Reaction Status Date / Time pravastatin AdvReac Fatigued Verified 05/11/18 23:55 Sulfa (Sulfonamide AdvReac Gastrointestinal Verified 05/11/18 23:55 Antibiotics) Upset All Systems PM: A 10-system review of systems was performed and is negative for pertinent findings except as documented above in the HPI. - Constitutional Vitals: Temp Pulse Resp BP Pulse Ox 98.3 F 88 16 137/53 100 05/16/18 19:46 05/16/18 22:18 05/16/18 23:21 05/16/18 23:21 05/16/18 22:18 Exam: General: Alert and oriented HEENT:EOM, pupils equal, round, and reactive. Cardiovascular:Normal S1 & S2, no murmurs or gallops. No JVD. Pulse regular. Lungs:Normal breath sounds, no wheezes or crackles. Abdomen:Soft, non-tender, no rigidity. Extremities:No deformity, no edema or tenderness, no joint swelling. Neurological:Normal cognition and motor skills. Skin:Normal color, no rash, no lesions. Pulses:Carotid and radial pulses normal +2. Rest of the physical exam is non-contributory Internal Med - H&P Results - Labs CBC & Chem 7: 05/16/18 19:54 05/16/18 19:54 - Assessment and plan (1) Hypokalemia Current Visit: Yes Status: Acute Assessment and plan: Known history of hypokalemia, probably aggravated by recent viral gastritis Potassium 2.5 with low magnesium of 1.3. Intolerant to by mouth supplementation, we will try IV today. 4 runs of 10meq followed by 1 bag of 1L NS with 40meq of K replete Mg monitor tomorrow (2) Viral gastritis Current Visit: Yes Status: Acute Assessment and plan: likely a contributing factor of worsening hypokalemia, seems to be resolving now PRN zofran (3) HTN (hypertension) Current Visit: No Status: Chronic Assessment and plan: On lisinopril/hydrochlorothiazide at home. Not sure if he will benefit much from HCTZ, will aggravate hypokalemia more currently normotensive, hold off meds consider d/c HCTZ at the time of discharge Qualifiers: Hypertension type: essential hypertension Qualified Code(s): I10 - Essential (primary) hypertension (4) CKD (chronic kidney disease), stage III Current Visit: No Status: Acute Assessment and plan: stable, follow up outpatient (5) DVT (deep venous thrombosis) Current Visit: No Status: Chronic Assessment and plan: On warfarin at home, resume unless PT/INR is supratherapeutic in AM labs Qualifiers: DVT location: lower extremity Affected thrombotic vein of extremity: unspecified lower extremity distal vein Chronicity: unspecified Laterality: left Qualified Code(s): I82.4Z2 - Acute embolism and thrombosis of unspecified deep veins of left distal lower extremity - Time Spent With Patient Total time spent is greater than 50% in coordination of care (as documented) at patient's floor/unit and/or counseling patient:
[2018-05-16] MEDS ORDERED: Ondansetron 4 MG/2 ML VIAL IVP PRN (23:57)
[2018-05-17] MEDS: 0.9 % Sodium Chloride w KCl 40 MEQ/1,000 ML MLS IVC SCH ×2 (05:42→16:34)
[2018-05-17 06:15] LABS: Basophils % 0.7 %; Eosinophils # 0.2 K/mcL (0.0-0.6); Eosinophils % 2.5 %; Hematocrit 27.7 % (37.5-50.1); Hemoglobin 9.4 g/dL (12.9-16.9); Immature Granulocytes % 0.5 % (0-4); Lymphocytes # 1.9 K/mcL (0.6-4.6); Lymphocytes % 32.5 %; Mean Corpuscular HGB Conc 33.9 g/dL (31.6-35.5); Mean Corpuscular Hemoglobin 30.9 pg (28.0-33.3); Mean Corpuscular Volume 91.1 fL (83.0-100.0); Mean Platelet Volume 9.8 fL (9.4-12.4); Monocytes # 1.1 K/mcL (0.0-1.3); Monocytes % 17.8 %; Neutrophils # 2.7 K/mcL (1.6-8.9); Platelet Count 283 K/mcL (140-400); Red Blood Count 3.04 M/mcL (4.19-5.50); Red Cell Distribution Width 14.4 % (11.5-14.5)
[2018-05-17 06:17] LABS: INR 1.9; Prothrombin Time 21.2 Seconds (9.4-12.1)
[2018-05-17 06:32] LABS: Calcium 7.6 mg/dL (8.6-10.3); Magnesium 1.8 mg/dL (1.6-2.6); Potassium 2.8 mEq/L (3.5-5.1)
[2018-05-17] MEDS: Multivit/Ca/Min/Fe/FA 1 TAB TABLET PO SCH (08:13)
[2018-05-17] MEDS: Metoprolol XL (24 HR) Succ 25 MG TAB.ER.24H PO SCH (08:13)
[2018-05-17] MEDS ORDERED: Warfarin perPT PO PRN (09:00)
[2018-05-17] MEDS ORDERED: Potassium Chloride Elixir 20 MEQ/15 ML UDC PO SCH (09:00)
--- NOTE | 2018-05-17 13:36 | Internal Med Progress Note ---
<Nitza Shelley M - Last Filed: 05/17/18 16:21> Hospitalist Progress Note - Encounter Date of Encounter: 05/17/18 Time of Encounter: 13:36 - Subjective Interval History: Patient is a 72-year-old male with history of Crohn's disease, hypertension, hyperlipidemia, CAD and DVT who presented to the emergency department on 05/16/18 with complaints of nausea and vomiting for the past 6 days. He states he has been able unable to eat due to the nausea and vomiting and he was previously seen at [facility] last week. In the interim he is also had a mechanical fall after tripping on his bed causing him to hit his head, right ear and right arm. He otherwise was maintained on potassium supplements which he stopped due to the nausea and vomiting. His potassium was found to be 2.5 in the emergency department. Today this patient states his nausea has been resolved with Zofran. He has chronic diarrhea which he attributes to his Crohn's disease. He recently stopped budesonide per his GI recommendations. - Exam Vitals: Temp Pulse Resp BP Pulse Ox 98.0 F 82 18 121/72 97 05/17/18 11:00 05/17/18 11:00 05/17/18 11:00 05/17/18 11:00 05/17/18 11:00 Exam: General: Conversant, No Apparent Distress, able to speak in full sentences and follow commands Neck: No JVD, trachea midline HEENT: PERRL, normocephalic, right ear pinna with dried blood and sutures in place. no erythema or warmth Cardiac: Reg Rate and Rhythm, Normal S1 and S2, No murmurs appreciated Pulmonary: Normal Breath Sounds, No Wheezes, Rales, or Rhonchi, Not in respiratory distress Abdomen: soft, tontender, no bruits, no guarding Neuro: Alert and responsive, No focal deficits noted Vascular: Normal capillary refill Skin: Right elbow wrapped in gauze, multiple superficial small hematomas in hands and upper extremities Musculoskeletal: No Chest Wall Tenderness Extremities: No Clubbing, No Cyanosis, No Edema, Normal Pulses Psych: Normal mood, pleasant, conversant - Assessment and Plan (1) Intractable nausea and vomiting Current Visit: Yes Status: Acute Assessment and Plan: * Currently resolved, patient is improving and starting to be able to keep down food, will continue to monitor * Differential includes medication side effect of oral potassium, viral gastroenteritis, or side effect of budesonide taper (2) Hypokalemia Current Visit: Yes Status: Acute Assessment and Plan: * Likely related to him stopping his oral potassium medication at home * Now 2.8, up from 2.5 in the ED, will recheck afternoon labs and replete as necessary (3) Crohns disease Current Visit: No Status: Acute Assessment and Plan: * Patient weaned from budesonide by GI doctor * Continues with chronic diarrhea which he states is at baseline, no melena or hematochezia (4) HTN (hypertension) Current Visit: No Status: Chronic Assessment and Plan: * Stable continues on home dose of metoprolol succinate 25mg daily * Lisinopril/HCTZ held due to hypokalemia, may require removal of HCTZ at discharge due to recurring hypokalemia even with supplementation and his CKD (5) HLD (hyperlipidemia) Current Visit: No Status: Acute Assessment and Plan: * Continues on home dose of atorvastatin 10mg (6) Multiple skin tears Current Visit: No Status: Acute Assessment and Plan: * Wounds healing on right ear and right elbow, currently wrapped in gauze (7) Laceration of right ear Current Visit: No Status: Acute Assessment and Plan: * Sutures from 05/11/[address] without evidence of erythema or warmth (8) Acute on chronic renal failure Current Visit: No Status: Acute Assessment and Plan: * Creatinine 1.94, improved from 1.99 and this is a slight worsening from his baseline which appears to be ~1.5 * Will continue on IVF of NS at 100ml/hour and monitor with daily labs (9) DVT prophylaxis Current Visit: No Status: Acute - Time Spent with Patient Total time spent is greater than 50% in coordination of care (as documented) at patient's floor/unit and/or counseling patient: 25 - 35 minutes Plan of Care Discussed with: patient Internal Medicine: Result - Labs CBC & Chem 7: 05/17/18 05:43 05/17/18 05:43 Labs: Short CBC 05/17/18 Range/Units 05:43 WBC 5.9 (4.3-11.1) K/mcL Hgb 9.4 L (12.9-16.9) g/dL Hct 27.7 L (37.5-50.1) % Plt Count 283 (140-400) K/mcL Neutrophils # 2.7 (1.6-8.9) K/mcL BMP 05/17/18 05:43 Sodium 138 Potassium 2.8 L Chloride 111 H Carbon Dioxide 16 L BUN 10 Creatinine 1.94 H Glucose 74 Calcium 7.6 L - ABG Interpretation ABG results: PT/INR, D-dimer PT 21.2 Seconds (9.4-12.1) H 05/17/18 05:43 Consult Discharge Plan - Plan Referrals: Nicolas Hagan MD [Primary Care Provider] - <Karli Riojas - Last Filed: 05/17/18 17:35> Hospitalist Progress Note - Encounter Date of Encounter: 05/17/18 - Exam Vitals: Temp Pulse Resp BP Pulse Ox 99.3 F 80 15 110/68 98 05/17/18 15:39 05/17/18 15:39 05/17/18 15:39 05/17/18 15:39 05/17/18 15:39 - Assessment and Plan (1) DVT (deep venous thrombosis) Current Visit: No Status: Chronic (2) HTN (hypertension) Current Visit: No Status: Chronic (3) Hypokalemia Current Visit: Yes Status: Acute (4) CKD (chronic kidney disease), stage III Current Visit: No Status: Acute (5) Viral gastritis Current Visit: Yes Status: Acute - Time Spent with Patient Total time spent is greater than 50% in coordination of care (as documented) at patient's floor/unit and/or counseling patient: Internal Medicine: Result - Labs CBC & Chem 7: 05/17/18 05:43 05/17/18 16:01 Labs: Short CBC 05/17/18 Range/Units 05:43 WBC 5.9 (4.3-11.1) K/mcL Hgb 9.4 L (12.9-16.9) g/dL Hct 27.7 L (37.5-50.1) % Plt Count 283 (140-400) K/mcL Neutrophils # 2.7 (1.6-8.9) K/mcL BMP 05/17/18 05/17/18 05:43 16:01 Sodium 138 136 Potassium 2.8 L 5.3 H D Chloride 111 H 116 H Carbon Dioxide 16 L 11 L BUN 10 10 Creatinine 1.94 H 1.93 H Glucose 74 82 Calcium 7.6 L 7.2 L - ABG Interpretation ABG results: PT/INR, D-dimer PT 21.2 Seconds (9.4-12.1) H 05/17/18 05:43 - Attending Attestation I examined this patient and my medical decision-making was reviewed with the Resident Physician Dr. Shelley. I agree with the documented findings, disposition and treatment plan as described except to the extent set forth below. Mr. Bowers is a 72 year old male with history of CKD, chronic hypocalcemia, hypertension, hyperlipidemia, DVT, Crohn's disease, presented to the ED with five-day history of nausea and vomiting. Associated with mild epigastric/right upper quadrant pain. Pt was admitted in the hospital and started him on IV hydration and supportive care. He is feeling better now. Denied any CP / abd pain. Gen: A, A, O x 3 Chest: Diminished BS b/l Heart: S1S2+ RRR Abd: Soft, NT a/p 1. Acute intractable N/V Mostly viral GE less likely crohn's flare up cont supportive care 2. chronic diarrhea started him on Cholestyramine 3. Severe hypokalemia due to vomiting cont replacing <Nitza Shelley M - Last Filed: 05/17/18 16:21> (1) Intractable nausea and vomiting Qualifiers: Vomiting type: unspecified Qualified Code(s): R11.2 - Nausea with vomiting, unspecified (3) Crohns disease Qualifiers: Gastrointestinal tract location: small and large intestine Digestive disease complication type: without complication Qualified Code(s): K50.80 - Crohn's disease of both small and large intestine without complications (4) HTN (hypertension) Qualifiers: Hypertension type: essential hypertension Qualified Code(s): I10 - Essential (primary) hypertension (5) HLD (hyperlipidemia) Qualifiers: Hyperlipidemia type: unspecified Qualified Code(s): E78.5 - Hyperlipidemia, unspecified (8) Acute on chronic renal failure Qualifiers: Acute renal failure type: unspecified Chronic kidney disease stage: unspecified stage Qualified Code(s): N17.9 - Acute kidney failure, unspecified ; N18.9 - Chronic kidney disease, unspecified <Karli Riojas - Last Filed: 05/17/18 17:35> (1) DVT (deep venous thrombosis) Qualifiers: DVT location: lower extremity Affected thrombotic vein of extremity: unspecified lower extremity distal vein Chronicity: unspecified Laterality: left Qualified Code(s): I82.4Z2 - Acute embolism and thrombosis of unspecified deep veins of left distal lower extremity (2) HTN (hypertension) Qualifiers: Hypertension type: essential hypertension Qualified Code(s): I10 - Essential (primary) hypertension
[2018-05-17] MEDS: Cholestyramine 4 GM POWD.PACK PO SCH ×3 (14:24→20:42)
[2018-05-17 16:31] LABS: Calcium 7.2 mg/dL (8.6-10.3); Potassium 5.3 mEq/L (3.5-5.1)
--- NOTE | 2018-05-17 17:13 | Electrocardiograph Report ---
[address] [address] Test Date: 2018-05-16 Pat Name: Zhao Bowers Department: 103 Room: 2A Gender: M Founder: EKP : 1945 Requested By: Doron Bunn Order Number: [id number] Reading MD: Brodie Mckay Measurements Intervals [place] Rate: 90 P: 40 IA: 155 QRS: -5 QRSD: 94 T: 29 QT: 387 QTc: 435 Interpretive Statements SINUS RHYTHM Electronically Signed On 05-17-2018 17:11:54 EDT by Brodie Mckay
[2018-05-17] MEDS ORDERED: *HR* Warfarin 1 MG TABLET PO ONE (18:00)
[2018-05-18 01:02] LABS: INR 1.8; Prothrombin Time 20.4 Seconds (9.4-12.1)
[2018-05-18 01:28] LABS: Calcium 7.7 mg/dL (8.6-10.3); Potassium 3.4 mEq/L (3.5-5.1)
[2018-05-18 05:12] LABS: Calcium 7.9 mg/dL (8.6-10.3); Potassium 3.5 mEq/L (3.5-5.1)
[2018-05-18 07:40] VITALS: BP 129/73
--- NOTE | 2018-05-18 08:46 | Discharge Summary ---
<Presley Lawton - Last Filed: 05/18/18 12:59> - NOTES TO OUTPATIENT PROVIDER Notes to Outpatient Provider: BMP has been ordered to obtain prior to next family medicine appointment. Stopped his Lisinopril-HCTZ and will start on Lisinopril only to prevent future hypokalemia. Will delay his Remicade to start on Tuesday Orders not resulted at time of discharge: Pending orders 05/19/18 04:00 INR/PT [Prothrombin Time INR] [COAG] AM 0400 05/20/18 04:00 INR/PT [Prothrombin Time INR] [COAG] AM 0400 Date of Encounter: 05/18/18 Time of Encounter: 08:44 - Discharge Diagnosis (1) Hypokalemia Priority: Primary Status: Acute (2) Crohns disease Priority: Secondary Status: Acute Qualifiers: Gastrointestinal tract location: small and large intestine Digestive disease complication type: without complication Qualified Code(s): K50.80 - Crohn's disease of both small and large intestine without complications (3) HTN (hypertension) Priority: Secondary Status: Chronic Qualifiers: Hypertension type: essential hypertension Qualified Code(s): I10 - Essential (primary) hypertension (4) HLD (hyperlipidemia) Priority: Secondary Status: Acute Qualifiers: Hyperlipidemia type: unspecified Qualified Code(s): E78.5 - Hyperlipidemia , unspecified (5) CKD (chronic kidney disease), stage III Priority: Secondary Status: Acute (6) Nausea and vomiting Priority: Secondary Status: Acute Qualifiers: Qualified Code(s): R11.2 - Nausea with vomiting, unspecified Hospital course: Mr. Bowers is a 72 year old male with history of CKD, hypertension, hyperlipidemia, DVT, Crohn's disease, presented to the ED with five-day history of nausea and vomiting. Labs were remarkable for potassium of 2.5 and he was admitted for hypokalemia in setting of intractable nausea and vomiting. He did not have additional episodes of nausea or vomiting since admission and states his diarrhea was at baseline given his Crohn's disease. His potassium was replaced via IV and PO and was at 5.3 the day before discharge. It was 3.5 this morning and patient will be going home back on his replacement of 10 mEq 6 times a day. He was started on Cholestyramine to help with his diarrhea and was instructed to stop his SYLVESTER-HCTZ pill to help prevent future hypokalemia. He will be given a prescription for Cholestyramine, Zofran and Lisinopril. He was scheduled to start Remicade today but was instructed to delay this until Tuesday. BMP was ordered for him to obtain within a week prior to his PCP hospital follow up. Discharge discussed with: patient Time spent discussing smoking cessation with patient: more than 10 minutes - Time Spent with Patient Total time spent providing and/or coordinating discharge services: - Discharge Medications Prescriptions: Ondansetron ODT [Zofran ODT] 4 mg SL Q4HR #30 tab.rapdis Cholestyramine 2 gm PO QIDAC #10 powd.pack Lisinopril [Zestril] 10 mg PO DAILY #30 tablet Home Medications: Atorvastatin [Lipitor] 40 mg PO HS 07/01/17 [History] Cyanocobalamin (B-12) [Vitamin B12] 1,000 mcg IM QMONTH 07/01/17 [History] InFLIXimab [Remicade] 100 mg IVPB Q8W 07/01/17 [History] Multivit-Min/FA/Lycopen/Lutein [A Thru Z Select Multivit Tab] 1 tab PO DAILY [History] Potassium Chloride [Klor-Con 10] 10 meq PO 6XD 07/01/17 [History] Ondansetron ODT [Zofran ODT] 4 mg SL Q4HR PRN #10 tab.rapdis 05/12/18 [Rx] Metoprolol Succinate [Toprol Xl] 25 mg PO DAILY 05/16/18 [History] Ranitidine HCl [Acid Transit Mechanic] 150 mg PO DAILY PRN 05/16/18 [History] Warfarin Sodium 0.5 mg PO MOWEFR 05/16/18 [History] Warfarin Sodium 1 mg PO SUTUTHSA 05/16/18 [History] Cholestyramine 2 gm PO QIDAC #10 powd.pack 05/18/18 [Rx] Lisinopril [Zestril] 10 mg PO DAILY #30 tablet 05/18/18 [Rx] Ondansetron ODT [Zofran ODT] 4 mg SL Q4HR #30 tab.rapdis 05/18/18 [Rx] Allergies/Adverse Reactions: 3 Allergy/AdvReac Type Severity Reaction Status Date / Time pravastatin AdvReac Fatigued Verified 05/11/18 23:55 Sulfa (Sulfonamide AdvReac Gastrointestinal Verified 05/11/18 23:55 Antibiotics) Upset Date of admission: 05/16/18 22:45 Primary care physician: Nicolas Hagan MD Discharging clinician: Presley Lawton Anticipated date of discharge: 05/18/18 - Constitutional Vitals: Temp Pulse Resp BP Pulse Ox 98.4 F 99 16 129/73 97 05/18/18 07:38 05/18/18 07:38 05/18/18 07:38 05/18/18 07:38 05/18/18 07:38 General appearance: Present: cooperative, pleasant, no acute distress, answers questions appropriately - Head Head exam: Present: atraumatic, normocephalic - Eye Eye exam: Present: PERRL, conjuntiva pink, sclera anicteric - Neck Neck exam general surgery: Present: supple, trachea midline. Absent: lymphadenopathy - Respiratory Respiratory exam: Present: CTAB. Absent: accessory muscle use, rales, rhonchi, wheezes - Cardiovascular Cardiovascular exam: Present: RRR, +S1, +S2. Absent: diastolic murmur, gallop, rubs, systolic murmur - GI/Abdominal GI/Abdominal exam: Present: normal bowel sounds, soft, no peritoneal signs. Absent: distended, firm, guarding, rigid, tenderness - Extremities Exam Extremities exam: Present: pedal edema (1+), warm, radial pulses palpable and symmetrical. Absent: calf tenderness, cyanotic - Neurological Exam Neurological exam: Present: alert, no focal deficits. Absent: facial droop, speech deficit - Skin Skin exam: Present: dry, intact - Patient Status Disposition: Home, Self-Care Condition: Fair Functional capacity at discharge: independent ambulation Overall status at discharge: patient is progressing back to baseline - Discharge Instructions Instructions: Lisinopril (By mouth), Cholestyramine (By mouth), Ondansetron ( By mouth) Follow Up With: Nicolas Hagan MD [Primary Care Provider] - 05/22/18 3:15 pm (Follow up as scheduled. ) Additional Instructions: Please follow up with your PCP within 1 week of discharge Obtain blood work prior to the visit to look at potassium - Diet and Activity Activity: increase activity as tolerated Diet: advance to your usual diet <Karli Riojas - Last Filed: 05/18/18 18:35> Date of Encounter: 05/18/18 - Discharge Diagnosis (1) DVT (deep venous thrombosis) Status: Chronic Qualifiers: DVT location: lower extremity Affected thrombotic vein of extremity: unspecified lower extremity distal vein Chronicity: unspecified Laterality: left Qualified Code(s): I82.4Z2 - Acute embolism and thrombosis of unspecified deep veins of left distal lower extremity (2) HTN (hypertension) Status: Chronic Qualifiers: Hypertension type: essential hypertension Qualified Code(s): I10 - Essential (primary) hypertension (3) Hypokalemia Status: Acute (4) CKD (chronic kidney disease), stage III Status: Acute (5) Viral gastritis Status: Acute Hospital course: Mr. Bowers is a 72 year old male - Time Spent with Patient Total time spent providing and/or coordinating discharge services: Date of admission: 05/16/18 22:45 Primary care physician: Nicolas Hagan MD - Constitutional Vitals: Temp Pulse Resp BP Pulse Ox 98.4 F 99 16 129/73 97 05/18/18 07:38 05/18/18 07:38 05/18/18 07:38 05/18/18 07:38 05/18/18 07:38 - Attending Attestation I examined this patient and my medical decision-making was reviewed with the Resident Physician Dr. Lawton. I agree with the documented findings, disposition and treatment plan as described except to the extent set forth below. Mr. Bowers is a 72 year old male with history of CKD, chronic hypocalcemia, hypertension, hyperlipidemia, DVT, Crohn's disease, presented to the ED with five-day history of nausea and vomiting. Associated with mild epigastric/right upper quadrant pain. Pt was admitted in the hospital and started him on IV hydration and supportive care. He is feeling better now. Denied any CP / abd pain. Gen: A, A, O x 3 Chest: Diminished BS b/l Heart: S1S2+ RRR Abd: Soft, NT a/p 1. Acute intractable N/V Mostly viral GE less likely crohn's flare up Improved cont supportive care 2. chronic diarrhea started him on Cholestyramine..doing well now 3. Severe hypokalemia due to vomiting resolved medically stable to d/c home today
[2018-05-18] MEDS: Metoprolol XL (24 HR) Succ 25 MG TAB.ER.24H PO SCH (09:52)
[2018-05-18] MEDS: Multivit/Ca/Min/Fe/FA 1 TAB TABLET PO SCH (09:53)
[2018-05-18] MEDS: Cholestyramine 4 GM POWD.PACK PO SCH (09:53)
[2018-05-18] MEDS ORDERED: *HR* Warfarin 1 MG TABLET PO ONE (18:00)
[2018-06-11] MEDS ORDERED: Cyanocobalamin (B-12) 1,000 MCG/ML VIAL IM SCH (09:00)
== END 2018-05-18 11:32 | disposition home or self-care (01) ==
LOC: EMEROO 19:38 → 2ANU 19:38
PROVIDERS: ADMIT Internal Medicine; ATTEND Internal Medicine

== ENCOUNTER 2018-05-22 20:10 | Inpatient (IN) ==
[2018-05-22] MEDS ORDERED: Naloxone 0.4 MG/ML INJ IVP PRN (22:29)
[2018-05-22] MEDS ORDERED: Warfarin perPT PO SCH (22:45)
--- NOTE | 2018-05-22 22:45 | Internal Med History&Physical ---
Date of Encounter: 05/22/18 Time of Encounter: 22:00 Internal Medicine - H&P: HPI Chief complaint: transient hypotension, sent from PCP Admitted From: Home History of present illness: Mr. Bowers is a 72 year old male with history of CKD, chronic hypokalemia, hypertension, hyperlipidemia, DVT, Crohn's disease, presented to the ED after being referred to the OSH from his PCP for transient hypotension. States that he went to his post-hospitalization visit with his PCP where his BP was recorded to be around 80/60s. He was asymptomatic but was sent to the ED for further evaluation. He states that since he was discharged on 05/18, when he was admitted for viral gastritis, he has not had further episodes of N/V. No worsening of diarrhea as well. His HCTZ was discontinued and was discharged on lisinopril only. No fall, chest pain, shortness of breath, cough, sputum production, abdominal pain or dysuria. Denies any melena, hematochezia, right red blood per rectum, or hematemesis. No joint pain or rash. In the ER, he was afebrile and hemodynamically stable with BP already in 97/57. Workup was essentially unremarkable with normal CBC and CXR/ankle XR showing no acute processes. He did have lactic acid of 2.4 and Mg 1.4. Urinalysis -ve for LE and nitrite. He was given IVF and transferred to [facility] for further management as his PCP reportedly requested the patient to be admitted at our facility. One thing he did mention is that he was tapered off on oral budesonide that he was taking for many years in 04/2018. Past Med Surg Social Fam HX - Past Medical History Attestation: Yes The following information was validated with the patient. Medical history: DVT, hyperlipidemia, hypertension, renal disease, other Additional medical history: Crohns Psychiatric history: no psych history - Past Surgical History Surgical History: no surgical history, other - Social History Smoking Status: Former smoker Smokeless Tobacco Status: No Alcohol use: rarely Drug use: none - Family History Mother Adopted: No Family Member Ethnicity: Non- Living Status: Hx Family Cardiac Disorders: Yes (hypertension) Hx Family Respiratory Disorders: No Hx Family Cancer: No Hx Family GI Disorders: No Hx Family Endocrine Disorder: No Hx Family Neuromuscular Disorders: No Hx Family Neurologic Disorders: No Hx Family HEENT Disorders: No Hx Family Autoimmune Disorders: No Father Adopted: No Family Member Ethnicity: Non- Living Status: Hx Family Cardiac Disorders: Yes Hx Family Respiratory Disorders: No Hx Family Cancer: No Hx Family GI Disorders: No Hx Family Endocrine Disorder: No Hx Family Neuromuscular Disorders: No Hx Family Neurologic Disorders: No Hx Family HEENT Disorders: No Hx Family Autoimmune Disorders: No Internal Medicine - H&P: Meds Atorvastatin [Lipitor] 40 mg PO HS 07/01/17 [History] Cyanocobalamin (B-12) [Vitamin B12] 1,000 mcg IM QMONTH 07/01/17 [History] InFLIXimab [Remicade] 100 mg IVPB Q8W 07/01/17 [History] Multivit-Min/FA/Lycopen/Lutein [A Thru Z Select Multivit Tab] 1 tab PO DAILY [History] Potassium Chloride [Klor-Con 10] 10 meq PO 6XD 07/01/17 [History] Ondansetron ODT [Zofran ODT] 4 mg SL Q4HR PRN #10 tab.rapdis 05/12/18 [Rx] Metoprolol Succinate [Toprol Xl] 25 mg PO DAILY 05/16/18 [History] Ranitidine HCl [Acid Bread Slicer Machine] 150 mg PO HS 05/16/18 [History] Warfarin Sodium 0.5 mg PO MOWEFR 05/16/18 [History] Warfarin Sodium 1 mg PO SUTUTHSA 05/16/18 [History] Cholestyramine 2 gm PO QIDAC #10 powd.pack 05/18/18 [Rx] Lisinopril [Zestril] 10 mg PO DAILY #30 tablet 05/18/18 [Rx] 3 Allergy/AdvReac Type Severity Reaction Status Date / Time pravastatin AdvReac Fatigued Verified 05/11/18 23:55 Sulfa (Sulfonamide AdvReac Gastrointestinal Verified 05/11/18 23:55 Antibiotics) Upset All Systems PM: A 10-system review of systems was performed and is negative for pertinent findings except as documented above in the HPI. - Constitutional Vitals: Temp Pulse Resp BP Pulse Ox 98.1 F 92 16 100/55 99 05/22/18 22:21 05/22/18 22:21 05/22/18 22:21 05/22/18 22:21 05/22/18 22:21 Exam: General: Alert and oriented, not in acute distress. HEENT:EOM, pupils equal, round and reactive. Cardiovascular:Normal S1 & S2, No JVD. Pulse regular. Lungs: clear to auscultation, no wheezes/rales Abdomen:Soft, non-tender, no rigidity. Extremities:No deformity or swelling Neurological:Normal cognition and motor skills. Non-focal Skin:Normal color, no rash, no lesions. Pulses:Carotid and radial pulses normal +2. Rest of the physical exam is non contributory - Assessment and plan (1) Transient hypotension Current Visit: Yes Status: Acute Assessment and plan: Probably secondary to mild volume depletion, recovering from recent viral gastritis chronic budesonide use for Crohn's which has been tapered off since 12/2017 -> no longer on it, ?iatrogenic adrenal insufficiency lactic acid 2.4, BP already normalized he may not need any BP medications at home -> will hold off ross-i and bb will continue IVF tonight and repeat lactate AM cortisol with morning lab tomorrow (2) Crohns disease Current Visit: No Status: Acute Assessment and plan: Budesonide tapered off as above on infliximab as outpatient and follows with GI Qualifiers: Gastrointestinal tract location: small and large intestine Digestive disease complication type: without complication Qualified Code(s): K50.80 - Crohn's disease of both small and large intestine without complications (3) Hypomagnesemia Current Visit: Yes Status: Acute Assessment and plan: repleted (4) CKD (chronic kidney disease), stage III Current Visit: No Status: Acute Assessment and plan: stable. monitor Cr and avoid nephrotoxins (5) DVT prophylaxis Current Visit: No Status: Acute Assessment and plan: on warfarin at home, INR therapeutic - Time Spent With Patient Total time spent is greater than 50% in coordination of care (as documented) at patient's floor/unit and/or counseling patient:
[2018-05-22] MEDS: Ringers Solution, Lactated 1,000 ML IVC SCH (23:36)
[2018-05-22] MEDS ORDERED: Ondansetron 4 MG/2 ML VIAL IVP PRN (23:44)
[2018-05-23 00:01] LABS: INR 2.6; Prothrombin Time 29.4 Seconds (9.4-12.1)
[2018-05-23 06:30] LABS: Basophils # 0.1 K/mcL (0.0-0.2); Basophils % 0.8 %; Eosinophils # 0.1 K/mcL (0.0-0.6); Eosinophils % 1.1 %; Hematocrit 29.6 % (37.5-50.1); Hemoglobin 9.5 g/dL (12.9-16.9); Lymphocytes # 2.4 K/mcL (0.6-4.6); Lymphocytes % 29.1 %; Mean Corpuscular HGB Conc 32.1 g/dL (31.6-35.5); Mean Corpuscular Hemoglobin 30.8 pg (28.0-33.3); Mean Corpuscular Volume 96.1 fL (83.0-100.0); Mean Platelet Volume 9.8 fL (9.4-12.4); Monocytes # 1.3 K/mcL (0.0-1.3); Monocytes % 15.6 %; Neutrophils # 4.4 K/mcL (1.6-8.9); Platelet Count 330 K/mcL (140-400); Red Blood Count 3.08 M/mcL (4.19-5.50); Red Cell Distribution Width 14.7 % (11.5-14.5); Segmented Neutrophils % 52.4 %
[2018-05-23 06:35] LABS: INR 2.6; Prothrombin Time 28.8 Seconds (9.4-12.1)
[2018-05-23 06:49] LABS: Calcium 8.1 mg/dL (8.6-10.3); Potassium 3.8 mEq/L (3.5-5.1)
[2018-05-23] MEDS: Cholestyramine 4 GM POWD.PACK PO SCH ×4 (08:01→21:28)
[2018-05-23] MEDS: Ringers Solution, Lactated 1,000 ML IVC SCH ×2 (08:01→18:40)
--- NOTE | 2018-05-23 10:12 | Internal Med Progress Note ---
Hospitalist Progress Note - Encounter Date of Encounter: 05/23/18 Time of Encounter: 10:12 - Subjective Interval History: Patient seen and examined at bedside. Denies any pain or discomfort -States that bowel movements have been normal for him- approx 3 this am. - Exam Vitals: Temp Pulse Resp BP Pulse Ox 98.2 F 92 22 90/53 91 05/23/18 06:58 05/23/18 06:58 05/23/18 06:58 05/23/18 06:58 05/23/18 06:58 Exam: Constitutional Constitutional: no chills, no fever(s), no night sweats - EENT Eyes: no change in vision, no discharge, no pain, no photophobia Nose, mouth and throat: no dysphagia, no nasal discharge, no neck pain, no sore throat - Cardiovascular Cardiovascular ROS IM: no chest pain, no diaphoresis, no dyspnea, no lightheadedness, no palpitations, no syncope - Respiratory Respiratory: cough - Gastrointestinal Gastrointestinal: no abdominal pain, diarrhea, nausea, vomiting - Genitourinary Genitourinary: no change in urinary stream, no dysuria, no flank pain, no hematuria - Musculoskeletal Musculoskeletal ROS IM: no numbness, no tingling - Integumentary Integumentary IM: no rash, no unusual bruising - Neurological Neurological ROS: no confusion, no convulsions, no focal weakness, no numbness, no tingling, no tremor(s) - Psychiatric Psychiatric: appropriate affect - Assessment and Plan (1) Crohns disease Current Visit: No Status: Acute Assessment and Plan: Budesonide tapered off as above on infliximab as outpatient last treatment was on Tuesday follows with GI as outpatient consult as needed (2) Transient hypotension Current Visit: Yes Status: Acute Assessment and Plan: Probably secondary to mild volume depletion, recovering from recent viral gastritis- bowel movements - decreasing cont with IVF chronic budesonide use for Crohn's which has been tapered off since 12/2017 -> no longer on it - cortisol level ok this am he may not need any BP medications at home -> will hold off ross-i and bb will continue IVF tonight and repeat lactate- WNL AM cortisol -WNL (3) CKD (chronic kidney disease), stage III Current Visit: No Status: Acute Assessment and Plan: stable. monitor Cr and avoid nephrotoxins (4) Hypomagnesemia Current Visit: Yes Status: Acute Assessment and Plan: will cont ot monitor replace as needed (5) Metabolic acidosis Current Visit: No Status: Acute Assessment and Plan: Bicarb is 14 today potassium ok he has had fluid loss secondary to diarrhea. He does have CKD we will start on bicarb 650mg BID and cont to monitor continue with IVF (6) DVT prophylaxis Current Visit: No Status: Acute Assessment and Plan: on warfarin at home, INR therapeutic- will continue - Time Spent with Patient Total time spent is greater than 50% in coordination of care (as documented) at patient's floor/unit and/or counseling patient: Internal Medicine: Result - Labs CBC & Chem 7: 05/23/18 06:10 05/23/18 06:10 Labs: Short CBC 05/23/18 Range/Units 06:10 WBC 8.3 (4.3-11.1) K/mcL Hgb 9.5 L (12.9-16.9) g/dL Hct 29.6 L (37.5-50.1) % Plt Count 330 (140-400) K/mcL Neutrophils # 4.4 (1.6-8.9) K/mcL BMP 05/23/18 06:10 Sodium 138 Potassium 3.8 Chloride 117 H Carbon Dioxide 14 L BUN 11 Creatinine 1.91 H Glucose 90 Calcium 8.1 L - ABG Interpretation ABG results: PT/INR, D-dimer PT 28.8 Seconds (9.4-12.1) H 05/23/18 06:10 Consult Discharge Plan - Plan Referrals: Nicolas Hagan MD [Primary Care Provider] - 06/02/18 8:30 am (1) Crohns disease Qualifiers: Gastrointestinal tract location: small and large intestine Digestive disease complication type: without complication Qualified Code(s): K50.80 - Crohn's disease of both small and large intestine without complications
[2018-05-23] MEDS ORDERED: *HR* Warfarin 1 MG TABLET PO ONE (18:08)
[2018-05-23] MEDS: Warfarin perPT PO SCH (18:36)
[2018-05-23] MEDS: Famotidine 20 MG TABLET PO SCH (21:27)
[2018-05-24 04:59] LABS: Basophils # 0.1 K/mcL (0.0-0.2); Basophils % 1.1 %; Eosinophils # 0.1 K/mcL (0.0-0.6); Eosinophils % 2.1 %; Hematocrit 26.4 % (37.5-50.1); Hemoglobin 8.5 g/dL (12.9-16.9); Immature Granulocytes % 0.6 % (0-4); Lymphocytes # 2.3 K/mcL (0.6-4.6); Lymphocytes % 35.1 %; Mean Corpuscular HGB Conc 32.2 g/dL (31.6-35.5); Mean Corpuscular Hemoglobin 29.8 pg (28.0-33.3); Mean Corpuscular Volume 92.6 fL (83.0-100.0); Mean Platelet Volume 9.6 fL (9.4-12.4); Monocytes # 1.1 K/mcL (0.0-1.3); Monocytes % 16.2 %; Neutrophils # 2.9 K/mcL (1.6-8.9); Platelet Count 321 K/mcL (140-400); Red Blood Count 2.85 M/mcL (4.19-5.50); Red Cell Distribution Width 14.6 % (11.5-14.5); Segmented Neutrophils % 44.9 %
[2018-05-24 05:05] LABS: INR 2.6; Prothrombin Time 29.4 Seconds (9.4-12.1)
[2018-05-24 05:13] LABS: Calcium 8.1 mg/dL (8.6-10.3); Potassium 3.8 mEq/L (3.5-5.1)
[2018-05-24] MEDS: Cholestyramine 4 GM POWD.PACK PO SCH ×4 (07:57→22:27)
--- NOTE | 2018-05-24 10:11 | Internal Med Progress Note ---
Hospitalist Progress Note - Encounter Date of Encounter: 05/24/18 Time of Encounter: 10:11 - Subjective Interval History: Patient seen and examined at bedside. Denies any pain or discomfort -States has had only one bowel movement today. Does not have any appetite unable to eat. He has had some weight loss approximately 20-30 pounds over the past few months. - Exam Vitals: Temp Pulse Resp BP Pulse Ox 98.4 F 84 18 100/54 96 05/24/18 06:49 05/24/18 06:49 05/24/18 06:49 05/24/18 06:49 05/24/18 06:49 Exam: Constitutional Constitutional: no chills, no fever(s), no night sweats - EENT Eyes: no change in vision, no discharge, no pain, no photophobia Nose, mouth and throat: no dysphagia, no nasal discharge, no neck pain, no sore throat - Cardiovascular Cardiovascular ROS IM: no chest pain, no diaphoresis, no dyspnea, no lightheadedness, no palpitations, no syncope does have pedal edema bilaterally - Respiratory Respiratory: Lung sounds are clear bilaterally - Gastrointestinal Gastrointestinal: no abdominal pain, diarrhea, nausea, vomiting - Genitourinary Genitourinary: no change in urinary stream, no dysuria, no flank pain, no hematuria - Musculoskeletal Musculoskeletal ROS IM: no numbness, no tingling - Integumentary Integumentary IM: no rash, no unusual bruising - Neurological Neurological ROS: no confusion, no convulsions, no focal weakness, no numbness, no tingling, no tremor(s) - Psychiatric Psychiatric: appropriate affect - Assessment and Plan (1) Crohns disease Current Visit: No Status: Acute Assessment and Plan: Budesonide tapered off as above on infliximab as outpatient last treatment was on Tuesday follows with GI as outpatient consult as needed Patient continues to have diarrhea one episode today. Nausea and vomiting has improved. Poor appetite. We will consult GI (2) Transient hypotension Current Visit: Yes Status: Acute Assessment and Plan: Probably secondary to mild volume depletion, recovering from recent viral gastritis- bowel movements - decreasing - chronic budesonide use for Crohn's which has been tapered off since 12/2017 -> no longer on it - cortisol level ok this am he may not need any BP medications at home -> will hold off ross-i and bb repeat lactate- WNL AM cortisol -WNL Blood pressure currently 99 to low 100 systolic. We will stop IV fluids this time since patient is developing some lower show any swelling will check echo (3) CKD (chronic kidney disease), stage III Current Visit: No Status: Acute Assessment and Plan: .Hx of calcium oxalate nephropathy. monitor Cr and avoid nephrotoxins will have nephrology consult concerning fluids and metabolic acidosis renal diet (4) Hypomagnesemia Current Visit: Yes Status: Acute Assessment and Plan: will cont ot monitor replace as needed (5) Metabolic acidosis Current Visit: No Status: Acute Assessment and Plan: Improving Bicarb is 17 today potassium ok- he has had fluid loss secondary to diarrhea. He does have CKD we will cont bicarb 650mg BID and cont to monitor continue with IVF consult nephrology (6) DVT prophylaxis Current Visit: No Status: Acute Assessment and Plan: on warfarin at home, INR therapeutic- will continue - Time Spent with Patient Total time spent is greater than 50% in coordination of care (as documented) at patient's floor/unit and/or counseling patient: Internal Medicine: Result - Labs CBC & Chem 7: 05/24/18 04:42 05/24/18 04:42 Labs: Short CBC 05/24/18 Range/Units 04:42 WBC 6.6 (4.3-11.1) K/mcL Hgb 8.5 L (12.9-16.9) g/dL Hct 26.4 L (37.5-50.1) % Plt Count 321 (140-400) K/mcL Neutrophils # 2.9 (1.6-8.9) K/mcL BMP 05/24/18 04:42 Sodium 138 Potassium 3.8 Chloride 115 H Carbon Dioxide 17 L BUN 9 Creatinine 1.72 H Glucose 86 Calcium 8.1 L - ABG Interpretation ABG results: PT/INR, D-dimer PT 29.4 Seconds (9.4-12.1) H 05/24/18 04:42 Consult Discharge Plan - Plan Referrals: Nicolas Hagan MD [Primary Care Provider] - 06/02/18 8:30 am (1) Crohns disease Qualifiers: Gastrointestinal tract location: small and large intestine Digestive disease complication type: without complication Qualified Code(s): K50.80 - Crohn's disease of both small and large intestine without complications
--- NOTE | 2018-05-24 17:48 | Nephrology Consult Note ---
Date of Encounter: 05/24/18 Time of Encounter: 13:00 Assessment and Plan (1) Transient hypotension Current Visit: Yes Status: Acute Likely volume related with persistent diarrhea and decersed po intake vs adrenal insuff from abrupt endocort withdrawal Continue volume repletion Will suggest ACTH stim test, random cortiol level noted on the low side Continue to hold antihypertensives (2) PANCHITO (acute kidney injury) Current Visit: No Status: Acute SCr improved with IVF and better than most of his numbers recently Continue to avoid nephrotoxins if possible (3) CKD (chronic kidney disease), stage III Current Visit: No Status: Acute Baseline unclear but suspect at least SCr at least 1.5, GFR 46 (4) Crohns disease Current Visit: No Status: Acute Discussed case with GI who should make ultimate decision on endocort use, consulted Need better bowel control Qualifiers: Gastrointestinal tract location: small and large intestine Digestive disease complication type: without complication Qualified Code(s): K50.80 - Crohn's disease of both small and large intestine without complications (5) Metabolic acidosis Current Visit: Yes Status: Acute Continue sodium bicarbonate tabs, bicarb level improving History of Present Illness - Reason for Consult Consult date: 05/24/18 Chronic Kidney Disease Requesting physician: Palak Enriquez - History of Present Illness 72 y o male with PMH of Crohns, kidney stones and CKD stage 3 admitted after being sent from pcp's office hypotensive. Pt reports decerased po intake and loose stools lately especially after he completely stopped his endocort recently. SCr noted at 2.07 on presentation but has actually improved with IVF to 1.72, GFR 40. Renal consulted to help with management of volume status. He denies any N/V. He recently established with [facility], Dr DALEY and has only seen once when his endocort was tapered however he deceided to stop it entirely on his own a few weeks back. No NSAIDs use Past Med Surg Social Fam HX - Past Medical History Medical history: DVT, hyperlipidemia, hypertension, renal disease, other Additional medical history: Crohns Psychiatric history: no psych history - Past Surgical History Surgical History: no surgical history, other - Social History Smoking Status: Former smoker Smokeless Tobacco Status: No Alcohol use: rarely Drug use: none - Family History Mother Adopted: No Family Member Ethnicity: Non- Living Status: Hx Family Cardiac Disorders: Yes (hypertension) Hx Family Respiratory Disorders: No Hx Family Cancer: No Hx Family GI Disorders: No Hx Family Endocrine Disorder: No Hx Family Neuromuscular Disorders: No Hx Family Neurologic Disorders: No Hx Family HEENT Disorders: No Hx Family Autoimmune Disorders: No Father Adopted: No Family Member Ethnicity: Non- Living Status: Hx Family Cardiac Disorders: Yes Hx Family Respiratory Disorders: No Hx Family Cancer: No Hx Family GI Disorders: No Hx Family Endocrine Disorder: No Hx Family Neuromuscular Disorders: No Hx Family Neurologic Disorders: No Hx Family HEENT Disorders: No Hx Family Autoimmune Disorders: No Medications and Allergies Atorvastatin [Lipitor] 40 mg PO HS 07/01/17 [History] Cyanocobalamin (B-12) [Vitamin B12] 1,000 mcg IM QMONTH 07/01/17 [History] InFLIXimab [Remicade] 100 mg IVPB Q8W 07/01/17 [History] Multivit-Min/FA/Lycopen/Lutein [A Thru Z Select Multivit Tab] 1 tab PO DAILY [History] Potassium Chloride [Klor-Con 10] 10 meq PO 6XD 07/01/17 [History] Ondansetron ODT [Zofran ODT] 4 mg SL Q4HR PRN #10 tab.rapdis 05/12/18 [Rx] Metoprolol Succinate [Toprol Xl] 25 mg PO DAILY 05/16/18 [History] Ranitidine HCl [Acid Freezer Unloader] 150 mg PO HS 05/16/18 [History] Warfarin Sodium 0.5 mg PO MOWEFR 05/16/18 [History] Warfarin Sodium 1 mg PO SUTUTHSA 05/16/18 [History] Cholestyramine 2 gm PO QIDAC #10 powd.pack 05/18/18 [Rx] Lisinopril [Zestril] 10 mg PO DAILY #30 tablet 05/18/18 [Rx] 3 Allergy/AdvReac Type Severity Reaction Status Date / Time pravastatin AdvReac Joint Pain Verified 05/23/18 08:15 Sulfa (Sulfonamide AdvReac Weakness Verified 05/23/18 08:15 Antibiotics) Review of Systems All Systems: reviewed and no additional remarkable complaints except as stated ( 10 systems reviewed and noted in HPI) Exam - Vital Signs Vital signs: Initial Vital Signs Temp Pulse Resp BP Pulse Ox 98.1 F 92 16 100/55 99 05/22/18 22:21 05/22/18 22:21 05/22/18 22:21 05/22/18 22:21 05/22/18 22:21 Vital Signs - Last 8 Hours Temp Pulse Pulse Pulse Pulse Resp BP 05/24/18 15:31 98.5 F 88 18 99/47 05/24/18 12:12 86 92 102 05/24/18 10:40 98.7 F 86 17 99/58 BP BP BP Pulse Ox 05/24/18 15:31 96 05/24/18 12:12 108/57 113/68 97/64 05/24/18 10:40 96 Intake and Output 05/24/18 05/24/18 05/24/18 07:59 15:59 23:59 Intake Total 479 / 479 Balance 479 / 479 Intake: Oral 479 / 479 Other: Meal Breakfast Percent of Meal Consumed 100% # Voids 1 Weight 75.5 kg Patient Weight 05/24/18 23:59 Weight 75.5 kg - General Appearance General appearance: chronically ill (NAD) EENT: ATNC, mucous membranes dry Neck: no JVD, supple Respiratory: clear (ant bilat) Cardiology: edema (LE bilat), normal S1, normal S2 Gastrointestinal: no tenderness, no guarding Neurologic: no focal deficit Musculoskeletal: no deformities Psychiatric: mood/affect appropriate, cooperative Results - Lab Results 05/24/18 04:42 05/24/18 04:42 Most recent lab results Calcium 8.1 mg/dL (8.6-10.3) L 05/24/18 04:42 Magnesium 1.7 mg/dL (1.6-2.6) 05/24/18 04:42 Consult Discharge Plan - Plan Referrals: Nicolas Hagan MD [Primary Care Provider] - 06/02/18 8:30 am
[2018-05-24] MEDS: Warfarin perPT PO SCH (18:00)
[2018-05-24] MEDS ORDERED: *HR* Warfarin 1 MG TABLET PO ONE (18:00)
[2018-05-24 19:15] LABS: Bilirubin,Urine Negative (Negative); Blood,Urine Negative (Negative); Clarity,Urine Clear (Clear); Color,Urine Yellow (Yellow); Glucose,Urine (UA) Normal (Normal); Ketones,Urine Negative (Negative); Leukocyte Esterase,Urine Negative (Negative); Nitrite,Urine Negative (Negative); PH,Urine 5.5 pH Units (5.0-8.0); Protein,Urine Negative (Neg-Trace); Specific Gravity,Urine 1.014 (1.010-1.025); Urobilinogen,Urine Normal (Normal)
[2018-05-24 19:39] LABS: Sodium, Urine 80.7 mEq/L
[2018-05-24] MEDS: Famotidine 20 MG TABLET PO SCH (21:07)
[2018-05-24] MEDS: Artificial Tears SOLN 15 ML BOTTLE BOTH EYES SCH (23:50)
[2018-05-24 23:54] LABS: Adenovirus F 40/41 PCR Not detected (Not detect); Astrovirus PCR Not detected (Not detect); C.difficile Toxin A/B by PCR Not detected (Not detect); Campylobacter by PCR Not detected (Not detect); Cryptosporidium by PCR Not detected (Not detect); Cyclospora cayetanensis PCR Not detected (Not detect); E. coli O157 by PCR Not detected (Not detect); Entamoeba histolytica PCR Not detected (Not detect); Enteroaggregative E.coli(EAEC) Not detected (Not detect); Enteropathogenic E.coli(EPEC) Not detected (Not detect); Enterotoxigenic E.coli (ETEC) Not detected (Not detect); Giardia lamblia PCR Not detected (Not detect); Norovirus GI/GII PCR Not detected (Not detect); Plesiomonas shigelloides PCR Not detected (Not detect); Rotavirus A PCR Not detected (Not detect); Salmonella PCR Not detected (Not detect); Sapovirus PCR Not detected (Not detect); Shig/EnteroinvasiveE coli EIEC Not detected (Not detect); Shigalike tox-prod E coli STEC Not detected (Not detect); Vibrio PCR Not detected (Not detect); Vibrio cholerae PCR Not detected (Not detect); Yersinia enterocolitica PCR Not detected (Not detect)
[2018-05-25 05:29] LABS: Hematocrit 27.7 % (37.5-50.1); Mean Corpuscular HGB Conc 32.5 g/dL (31.6-35.5); Mean Corpuscular Hemoglobin 30.8 pg (28.0-33.3); Mean Corpuscular Volume 94.9 fL (83.0-100.0); Mean Platelet Volume 9.9 fL (9.4-12.4); Platelet Count 322 K/mcL (140-400); Red Blood Count 2.92 M/mcL (4.19-5.50); Red Cell Distribution Width 14.4 % (11.5-14.5)
[2018-05-25 05:34] LABS: INR 3.3; Prothrombin Time 36.8 Seconds (9.4-12.1)
[2018-05-25] MEDS ORDERED: Cosyntropin 250 MCG/2 ML VIAL IVP ONE (05:35)
[2018-05-25 05:54] LABS: Calcium 8.2 mg/dL (8.6-10.3); Potassium 3.8 mEq/L (3.5-5.1)
[2018-05-25 06:26] LABS: Eosinophils # 0.3 K/mcL (0.0-0.6); Monocytes # 1.4 K/mcL (0.0-1.3); Neutrophils # 2.2 K/mcL (1.6-8.9)
[2018-05-25 06:27] LABS: Platelet Estimate Normal (Normal)
[2018-05-25 06:28] LABS: Spherocytes 2+ (Not Present)
[2018-05-25] MEDS: Cholestyramine 4 GM POWD.PACK PO SCH ×4 (10:45→22:15)
--- NOTE | 2018-05-25 11:09 | Internal Med Progress Note ---
Hospitalist Progress Note - Encounter Date of Encounter: 05/27/18 Time of Encounter: 11:09 - Subjective Interval History: Patient seen and examined at bedside. Denies any pain or discomfort -States has had only one bowel movement today. Does not have any appetite unable to eat. He has had some weight loss approximately 20-30 pounds over the past few months. - Exam Vitals: Temp Pulse Resp BP Pulse Ox 99.4 F 90 18 102/60 95 05/25/18 07:15 05/25/18 07:15 05/25/18 07:15 05/25/18 07:15 05/25/18 07:15 Exam: Constitutional Constitutional: no chills, no fever(s), no night sweats - EENT Eyes: no change in vision, no discharge, no pain, no photophobia Nose, mouth and throat: no dysphagia, no nasal discharge, no neck pain, no sore throat - Cardiovascular Cardiovascular ROS IM: no chest pain, no diaphoresis, no dyspnea, no lightheadedness, no palpitations, no syncope does have pedal edema bilaterally - Respiratory Respiratory: Lung sounds are clear bilaterally - Gastrointestinal Gastrointestinal: no abdominal pain, diarrhea, nausea, vomiting - Genitourinary Genitourinary: no change in urinary stream, no dysuria, no flank pain, no hematuria - Musculoskeletal Musculoskeletal ROS IM: no numbness, no tingling - Integumentary Integumentary IM: no rash, no unusual bruising - Neurological Neurological ROS: no confusion, no convulsions, no focal weakness, no numbness, no tingling, no tremor(s) - Psychiatric Psychiatric: appropriate affect - Assessment and Plan (1) Crohns disease Status: Acute Assessment and Plan: Budesonide tapered off as above on infliximab as outpatient last treatment was on Tuesday follows with GI as outpatient consulted GI He will under colonoscopy in AM Cont to have poor appetite (2) Transient hypotension Status: Acute Assessment and Plan: Probably secondary to mild volume depletion, recovering from recent viral gastritis- bowel movements - decreasing - chronic budesonide use for Crohn's which has been tapered off since 12/2017 -> no longer on it - cortisol level ok this am he may not need any BP medications at home -> will hold off ross-i and bb repeat lactate- WNL AM cortisol - somewhat on low side nephrology recommending ACTH stim test Blood pressure currently 99 to low 100 systolic. We will stop IV fluids this time since patient is developing some lower show any swelling wi (3) CKD (chronic kidney disease), stage III Status: Acute Assessment and Plan: .Hx of calcium oxalate nephropathy. monitor Cr and avoid nephrotoxins will have nephrology consult concerning fluids and metabolic acidosis renal diet (4) Hypomagnesemia Status: Acute Assessment and Plan: will cont ot monitor replace as needed (5) Metabolic acidosis Status: Acute Assessment and Plan: Improving Bicarb potassium ok- he has had fluid loss secondary to diarrhea. He does have CKD we will cont bicarb 650mg BID and cont to monitor consult nephrology (6) DVT prophylaxis Status: Acute Assessment and Plan: on warfarin at home, INR therapeutic- will continue - Time Spent with Patient Total time spent is greater than 50% in coordination of care (as documented) at patient's floor/unit and/or counseling patient: Internal Medicine: Result - Labs CBC & Chem 7: 05/26/18 05:18 05/26/18 05:18 Labs: Short CBC 05/25/18 Range/Units 04:44 WBC 6.9 (4.3-11.1) K/mcL Hgb 9.0 L (12.9-16.9) g/dL Hct 27.7 L (37.5-50.1) % Plt Count 322 (140-400) K/mcL Neutrophils # 2.2 (1.6-8.9) K/mcL BMP 05/25/18 04:44 Sodium 136 Potassium 3.8 Chloride 114 H Carbon Dioxide 16 L BUN 9 Creatinine 1.80 H Glucose 84 Calcium 8.2 L Urine 05/24/18 Range/Units 19:02 Urine Color Yellow (Yellow) Urine Clarity Clear (Clear) Urine pH 5.5 (5.0-8.0) pH Units Ur Specific [place] 1.014 (1.010-1.025) Urine Protein Negative (Neg-Trace) mg/dL Urine Glucose (UA) Normal (Normal) mg/dL - ABG Interpretation ABG results: PT/INR, D-dimer PT 36.8 Seconds (9.4-12.1) H 05/25/18 04:44 Consult Discharge Plan - Plan Instructions: Sodium Bicarbonate (By mouth) Referrals: Nicolas Hagan MD [Primary Care Provider] - 08/24/18 8:30 am Janae Quinn MD [Partnered Physician] - (The office will call you to schedule your colonoscopy.) Prescriptions: Sodium Bicarbonate 650 mg PO BID #30 tablet (1) Crohns disease Qualifiers: Gastrointestinal tract location: small and large intestine Digestive disease complication type: without complication Qualified Code(s): K50.80 - Crohn's disease of both small and large intestine without complications
--- NOTE | 2018-05-25 14:06 | Gastroenterology Consult Note ---
<José Perez - Last Filed: 05/25/18 14:00> Date of Encounter: 05/25/18 Time of Encounter: 11:20 - Assessment and plan (1) Crohns disease Current Visit: No Status: Acute Assessment and plan: He states he was tapered off Budesonide in April 2018. Last colonoscopy was by Dr. Salter with a few polyps removed-per patient report. Plan for colonoscopy tomorrow. Clear liquid diet today, no red or purple. NPO at midnight. If unable tolerate NuLytely please use MiraLAX prep. If not clear by 6 AM, give 2 tap water enemas. GI panel negative, fecal calprotectin pending. Qualifiers: Gastrointestinal tract location: small and large intestine Digestive disease complication type: without complication Qualified Code(s): K50.80 - Crohn's disease of both small and large intestine without complications (2) Anemia Current Visit: No Status: Acute Assessment and plan: Hgb 9, continue to monitor CBC and transfuse PRBC as needed. Plan for colonoscopy tomorrow. Qualifiers: Anemia type: unspecified type Qualified Code(s): D64.9 - Anemia, unspecified - Time Spent With Patient Total time spent is greater than 50% in coordination of care (as documented) at patient's floor/unit and/or counseling patient: GI History of Present Illness - Data of Consult Patient: known to practice within the last 3 years Consult date: 05/25/18 Requesting Physician: Ludwin Alarcon MD - Consult Narrative Reason for consult: Crohn's disease History of present illness: Mr. Bowers is a 72 year old male with PMHx of Crohn's disease, CKD, HTN, HLD, who was sent from his PCP office to the ED with hypotension. We have been consulted to evaluate his Crohn's disease. He was diagnosed in 1970 and also had a bowel resection that year. He had a second bowel resection in 1996. He has only been treated with Prednisone, Entocort, and Remicade. Last colonoscopy was 12/26/[address] Salter with a few polyps removed-per patient report. He states he was tapered off Budesonide in April 2018. Procedures: ERCP 09/20/2017 Dr. Quinn: Stent removed from biliary tree, sludge found in biliary tree. ERCP 07/20/2017 Dr. Quinn: Biliary sphincterotomy performed, one temporary stent placed in the CBD. NSAIDs: None Anticoagulation: Coumadin Past Med Surg Social Fam HX - Past Medical History Medical history: DVT, hyperlipidemia, hypertension, renal disease, other Additional medical history: Crohns Psychiatric history: no psych history - Past Surgical History Surgical History: no surgical history, other - Social History Smoking Status: Former smoker Smokeless Tobacco Status: No Alcohol use: rarely Drug use: none - Family History Mother Adopted: No Family Member Ethnicity: Non- Living Status: Hx Family Cardiac Disorders: Yes (hypertension) Hx Family Respiratory Disorders: No Hx Family Cancer: No Hx Family GI Disorders: No Hx Family Endocrine Disorder: No Hx Family Neuromuscular Disorders: No Hx Family Neurologic Disorders: No Hx Family HEENT Disorders: No Hx Family Autoimmune Disorders: No Father Adopted: No Family Member Ethnicity: Non- Living Status: Hx Family Cardiac Disorders: Yes Hx Family Respiratory Disorders: No Hx Family Cancer: No Hx Family GI Disorders: No Hx Family Endocrine Disorder: No Hx Family Neuromuscular Disorders: No Hx Family Neurologic Disorders: No Hx Family HEENT Disorders: No Hx Family Autoimmune Disorders: No - Gastrointestinal Gastrointestinal: Present: as per HPI - Constitutional Constitutional: as per HPI - EENT Eyes: as per HPI Ears: Present: as per HPI Nose, mouth and throat: Present: as per HPI - Cardiovascular Cardiovascular ROS: Present: as per HPI - Respiratory Respiratory IM: Present: as per HPI - Genitourinary Genitourinary: Absent: change in color, Urinary frequency - Neurological ROS Neurological GI: Present: as per HPI - Hematologic/Lymphatic Hematologic/Lymphatic pediatric: Present: as per HPI - Musculoskeletal Musculoskeletal ROS GI: Present: as per HPI - Integumentary Integumentary GI: Present: as per HPI - Psychiatric ROS Psychiatric GI: Present: as per HPI - Endocrine Endocrine IM: Present: as per HPI - Constitutional Vitals: Temp Pulse Resp BP Pulse Ox 98.6 F 91 18 112/71 98 05/25/18 11:45 05/25/18 11:45 05/25/18 11:45 05/25/18 11:45 05/25/18 11:45 General appearance: Present: cooperative, A&O X 3, no acute distress, answers questions appropriately - Head Head exam: Present: atraumatic, normocephalic - Eye Eye exam: Present: normal appearance, sclera anicteric - ENT ENT exam: Present: mucous membranes moist - Neck Neck exam general surgery: Present: normal inspection, trachea midline - Respiratory Respiratory exam: Present: CTAB. Absent: rales, rhonchi - Cardiovascular Cardiovascular exam: Present: RRR, +S1, +S2 - GI/Abdominal GI/Abdominal exam: Present: soft, no peritoneal signs. Absent: distended, firm , guarding, tenderness - Rectal Rectal exam: Present: deferred - Extremities Exam Extremities exam: Present: warm - Neurological Exam Neurological exam: Present: no focal deficits - Psychiatric Psychiatric exam: Present: normal affect, normal mood - Skin Skin exam: Present: dry, intact, normal color, warm Results - Labs CBC & Chem 7: 05/25/18 04:44 05/25/18 04:44 Labs: Last Result Calcium 8.2 mg/dL (8.6-10.3) L 05/25/18 04:44 Entire Visit Hgb 9.0 g/dL (12.9-16.9) L 05/25/18 04:44 Hct 27.7 % (37.5-50.1) L 05/25/18 04:44 PT 36.8 Seconds (9.4-12.1) H 05/25/18 04:44 - ABG ABG results: PT/INR, D-dimer PT 36.8 Seconds (9.4-12.1) H 05/25/18 04:44 Consult Discharge Plan - Plan Referrals: Nicolas Hagan MD [Primary Care Provider] - 06/02/18 8:30 am <Janae Quinn - Last Filed: 05/25/18 22:40> Date of Encounter: 05/25/18 Time of Encounter: 17:00 - Time Spent With Patient Total time spent is greater than 50% in coordination of care (as documented) at patient's floor/unit and/or counseling patient: GI History of Present Illness - Data of Consult Requesting Physician: Ludwin Alarcon MD - Consult Narrative History of present illness: Mr. Bowers is a 72 year old male - Constitutional Vitals: Temp Pulse Resp BP Pulse Ox 98.7 F 94 16 124/54 98 05/25/18 19:49 05/25/18 19:49 05/25/18 19:49 05/25/18 19:49 05/25/18 19:49 Results - Labs CBC & Chem 7: 05/25/18 04:44 05/25/18 04:44 Labs: Last Result Calcium 8.2 mg/dL (8.6-10.3) L 05/25/18 04:44 Entire Visit Hgb 9.0 g/dL (12.9-16.9) L 05/25/18 04:44 Hct 27.7 % (37.5-50.1) L 05/25/18 04:44 PT 36.8 Seconds (9.4-12.1) H 05/25/18 04:44 - ABG ABG results: PT/INR, D-dimer PT 36.8 Seconds (9.4-12.1) H 05/25/18 04:44 - Attending Attestation I have personally performed a face to face evaluation on this patient. I have reviewed and agree with the care plan. History and Exam by me shows: Pt seen. Pt with Hx of Crohns on remicade. worsening of diarrhea since GB surgery last july. EVen on entocort diarrhea not resolved. Admitted with recurrent PANCHITO due to dehydration. IS ON REMICADE but no real diff in symptoms when gets infusion. Question is wheter symptoms due to POst cholecystectomy diarrhea or due to Crohns not being controlled Rec: Colon once INR < 1.5 most prob out pt as INR 3.3 and no urgency to do colon with corection sof coagulopathy with Vit K/FFP
--- NOTE | 2018-05-25 15:26 | Internal Med Progress Note ---
Hospitalist Progress Note - Encounter Date of Encounter: 05/25/18 Time of Encounter: 15:23 - Subjective Interval History: Patient seen and examined at bedside. Denies any pain or discomfort -Patient was seen by GI he will undergo colonoscopy in AM - Exam Vitals: Temp Pulse Resp BP Pulse Ox 98.6 F 91 18 112/71 98 05/25/18 11:45 05/25/18 11:45 05/25/18 11:45 05/25/18 11:45 05/25/18 11:45 Exam: Constitutional Constitutional: no chills, no fever(s), no night sweats - EENT Eyes: no change in vision, no discharge, no pain, no photophobia Nose, mouth and throat: no dysphagia, no nasal discharge, no neck pain, no sore throat - Cardiovascular Cardiovascular ROS IM: no chest pain, no diaphoresis, no dyspnea, no lightheadedness, no palpitations, no syncope does have pedal edema bilaterally - Respiratory Respiratory: Lung sounds are clear bilaterally - Gastrointestinal Gastrointestinal: no abdominal pain, diarrhea, nausea, vomiting - Genitourinary Genitourinary: no change in urinary stream, no dysuria, no flank pain, no hematuria - Musculoskeletal Musculoskeletal ROS IM: no numbness, no tingling - Integumentary Integumentary IM: no rash, no unusual bruising - Neurological Neurological ROS: no confusion, no convulsions, no focal weakness, no numbness, no tingling, no tremor(s) - Psychiatric Psychiatric: appropriate affect - Assessment and Plan (1) Crohns disease Current Visit: No Status: Acute Assessment and Plan: Budesonide tapered off as above on infliximab as outpatient last treatment was on Tuesday follows with GI as outpatient consulted GI He will under colonoscopy in AM Cont to have poor appetite (2) Transient hypotension Current Visit: Yes Status: Acute Assessment and Plan: Probably secondary to mild volume depletion, recovering from recent viral gastritis- bowel movements - decreasing - chronic budesonide use for Crohn's which has been tapered off since 12/2017 -> no longer on it - cortisol level ok this am he may not need any BP medications at home -> will hold off ross-i and bb repeat lactate- WNL AM cortisol - somewhat on low side nephrology recommending ACTH stim test Blood pressure currently 99 to low 100 systolic. We will stop IV fluids this time since patient is developing some lower show any swelling wi (3) CKD (chronic kidney disease), stage III Current Visit: No Status: Acute Assessment and Plan: .Hx of calcium oxalate nephropathy. monitor Cr and avoid nephrotoxins will have nephrology consult concerning fluids and metabolic acidosis renal diet (4) Hypomagnesemia Current Visit: Yes Status: Acute Assessment and Plan: will cont ot monitor replace as needed (5) Metabolic acidosis Current Visit: No Status: Acute Assessment and Plan: Improving Bicarb potassium ok- he has had fluid loss secondary to diarrhea. He does have CKD we will cont bicarb 650mg BID and cont to monitor consult nephrology (6) DVT prophylaxis Current Visit: No Status: Acute - Time Spent with Patient Total time spent is greater than 50% in coordination of care (as documented) at patient's floor/unit and/or counseling patient: Internal Medicine: Result - Labs CBC & Chem 7: 05/25/18 04:44 05/25/18 04:44 Labs: Short CBC 05/25/18 Range/Units 04:44 WBC 6.9 (4.3-11.1) K/mcL Hgb 9.0 L (12.9-16.9) g/dL Hct 27.7 L (37.5-50.1) % Plt Count 322 (140-400) K/mcL Neutrophils # 2.2 (1.6-8.9) K/mcL BMP 05/25/18 04:44 Sodium 136 Potassium 3.8 Chloride 114 H Carbon Dioxide 16 L BUN 9 Creatinine 1.80 H Glucose 84 Calcium 8.2 L Urine 05/24/18 Range/Units 19:02 Urine Color Yellow (Yellow) Urine Clarity Clear (Clear) Urine pH 5.5 (5.0-8.0) pH Units Ur Specific [place] 1.014 (1.010-1.025) Urine Protein Negative (Neg-Trace) mg/dL Urine Glucose (UA) Normal (Normal) mg/dL - ABG Interpretation ABG results: PT/INR, D-dimer PT 36.8 Seconds (9.4-12.1) H 05/25/18 04:44 Consult Discharge Plan - Plan Referrals: Nicolas Hagan MD [Primary Care Provider] - 06/02/18 8:30 am (1) Crohns disease Qualifiers: Gastrointestinal tract location: small and large intestine Digestive disease complication type: without complication Qualified Code(s): K50.80 - Crohn's disease of both small and large intestine without complications
[2018-05-25] MEDS ORDERED: SODIUM CHLORIDE/NAHCO3/KCL/PEG 4,000 ML SOLN.RECON PO ONE (17:00)
[2018-05-25] MEDS: Warfarin perPT PO SCH (17:01)
[2018-05-25] MEDS: Famotidine 20 MG TABLET PO SCH (20:34)
[2018-05-25] MEDS: Artificial Tears SOLN 15 ML BOTTLE BOTH EYES SCH (20:34)
[2018-05-26 06:04] LABS: Basophils # 0.1 K/mcL (0.0-0.2); Basophils % 0.8 %; Eosinophils # 0.1 K/mcL (0.0-0.6); Eosinophils % 1.7 %; Hemoglobin 9.4 g/dL (12.9-16.9); Immature Granulocytes % 0.6 % (0-4); Lymphocytes # 2.4 K/mcL (0.6-4.6); Lymphocytes % 35.8 %; Mean Corpuscular HGB Conc 32.4 g/dL (31.6-35.5); Mean Corpuscular Hemoglobin 30.9 pg (28.0-33.3); Mean Corpuscular Volume 95.4 fL (83.0-100.0); Mean Platelet Volume 9.9 fL (9.4-12.4); Monocytes # 1.1 K/mcL (0.0-1.3); Monocytes % 17.1 %; Neutrophils # 2.9 K/mcL (1.6-8.9); Platelet Count 348 K/mcL (140-400); Red Blood Count 3.04 M/mcL (4.19-5.50); Red Cell Distribution Width 14.2 % (11.5-14.5)
[2018-05-26 06:10] LABS: INR 3.3; Prothrombin Time 37.5 Seconds (9.4-12.1)
[2018-05-26 07:19] LABS: Calcium 8.1 mg/dL (8.6-10.3); Potassium 3.9 mEq/L (3.5-5.1)
[2018-05-26] MEDS: Cholestyramine 4 GM POWD.PACK PO SCH ×3 (07:40→16:57)
--- NOTE | 2018-05-26 10:46 | Nephrology Progress Note ---
Date of Encounter: 05/25/18 Time of Encounter: 12:00 - Assessment and Plan (1) Transient hypotension Current Visit: Yes Status: Acute Improved with IVF but does have adrenal insuff given failed ACTH stim test. Would needs steroids back but will await GI's decision on endocort (2) PANCHITO (acute kidney injury) Current Visit: No Status: Acute SCr fluctuating at 1.8, GFR 37 but essentially stable UOP acceptable Encouraged continued increased fluids at least 2 liters a day Continue to avoid nephrotoxins if possible (3) CKD (chronic kidney disease), stage III Current Visit: No Status: Acute Baseline unclear but suspect at least SCr at least 1.5, GFR 46 (4) Crohns disease Current Visit: No Status: Acute Discussed case with GI who should make ultimate decision on endocort use, consulted Qualifiers: Gastrointestinal tract location: small and large intestine Digestive disease complication type: without complication Qualified Code(s): K50.80 - Crohn's disease of both small and large intestine without complications (5) Metabolic acidosis Current Visit: Yes Status: Acute Continue sodium bicarbonate tabs, bicarb level improving Subjective Interval history: Pt seen and examined without complaints, with less BMs. Drinking more fluids also with IVF off Objective - Vital Signs Vital signs: Vital Signs Temp Pulse Resp BP Pulse Ox 05/26/18 10:05 106 114/74 05/26/18 07:42 97 05/26/18 07:14 98.4 F 84 16 107/61 97 05/26/18 03:36 98.9 F 86 16 97/56 97 05/26/18 00:01 98.9 F 94 16 92/50 97 05/25/18 19:49 98.7 F 94 16 124/54 98 05/25/18 15:22 98.5 F 89 17 120/69 97 05/25/18 11:45 98.6 F 91 18 112/71 98 Intake and Output 05/25/18 05/26/18 05/26/18 23:59 07:59 15:59 Intake Total 120 / 120 120 / 120 Output Total 650 / 650 Balance -650 / -650 120 / 120 120 / 120 Intake: Oral 120 / 120 120 / 120 Output: Urine 650 / 650 Other: Meal Breakfast Percent of Meal Consumed 40% Weight 73.3 kg Patient Weight 05/26/18 23:59 Weight 73.3 kg - General Appearance General appearance: Present: chronically ill (NAD) EENT: Present: ATNC, mucous membranes moist Neck: Present: no JVD, supple Cardiology: Present: edema, normal S1, normal S2 Gastrointestinal: Present: no tenderness, no guarding Integumentary: Present: warm and dry Neurologic: Present: no focal deficit Musculoskeletal: Present: no deformities Psychiatric: Present: mood/affect appropriate, cooperative - Lab 05/26/18 05:18 05/26/18 05:18 Most recent lab results Calcium 8.1 mg/dL (8.6-10.3) L 05/26/18 05:18 Magnesium 1.7 mg/dL (1.6-2.6) 05/26/18 05:18 Urine Creatinine 68 mg/dL 05/24/18 19:02 Urine Sodium 80.7 mEq/L 05/24/18 19:02 Consult Discharge Plan - Plan Referrals: Nicolas Hagan MD [Primary Care Provider] - 06/02/18 8:30 am
--- NOTE | 2018-05-26 10:48 | Nephrology Progress Note ---
Date of Encounter: 05/26/18 - Assessment and Plan (1) Transient hypotension Current Visit: Yes Status: Acute (2) PANCHITO (acute kidney injury) Current Visit: No Status: Acute (3) CKD (chronic kidney disease), stage III Current Visit: No Status: Acute (4) Crohns disease Current Visit: No Status: Acute Qualifiers: Gastrointestinal tract location: small and large intestine Digestive disease complication type: without complication Qualified Code(s): K50.80 - Crohn's disease of both small and large intestine without complications (5) Metabolic acidosis Current Visit: Yes Status: Acute Subjective Interval history: Pt seen and examined without complaints, with less BMs. Drinking more fluids also with IVF off Objective - Vital Signs Vital signs: Vital Signs Temp Pulse Resp BP Pulse Ox 05/26/18 10:05 106 114/74 05/26/18 07:42 97 05/26/18 07:14 98.4 F 84 16 107/61 97 05/26/18 03:36 98.9 F 86 16 97/56 97 05/26/18 00:01 98.9 F 94 16 92/50 97 05/25/18 19:49 98.7 F 94 16 124/54 98 05/25/18 15:22 98.5 F 89 17 120/69 97 05/25/18 11:45 98.6 F 91 18 112/71 98 Intake and Output 05/25/18 05/26/18 05/26/18 23:59 07:59 15:59 Intake Total 120 / 120 120 / 120 Output Total 650 / 650 Balance -650 / -650 120 / 120 120 / 120 Intake: Oral 120 / 120 120 / 120 Output: Urine 650 / 650 Other: Meal Breakfast Percent of Meal Consumed 40% Weight 73.3 kg Patient Weight 05/26/18 23:59 Weight 73.3 kg - Lab 05/26/18 05:18 05/26/18 05:18 Most recent lab results Calcium 8.1 mg/dL (8.6-10.3) L 05/26/18 05:18 Magnesium 1.7 mg/dL (1.6-2.6) 05/26/18 05:18 Urine Creatinine 68 mg/dL 05/24/18 19:02 Urine Sodium 80.7 mEq/L 05/24/18 19:02 Consult Discharge Plan - Plan Referrals: Nicolas Hagan MD [Primary Care Provider] - 06/02/18 8:30 am
--- NOTE | 2018-05-26 11:47 | Gastroenterology Progress Note ---
<José Perez - Last Filed: 05/26/18 11:45> Date of Encounter: 05/26/18 Time of Encounter: 10:30 - Assessment and plan (1) Crohns disease Current Visit: No Status: Acute Assessment and plan: Unable to complete colonoscopy as INR 3.3. Continue to hold Coumadin, and will plan for colonoscopy on or Tuesday as outpatient. Check PT/INR Tuesday prior to cscope. Our schedulers will contact patient to set up colonoscopy. GI panel negative, fecal calprotectin pending. Qualifiers: Gastrointestinal tract location: small and large intestine Digestive disease complication type: without complication Qualified Code(s): K50.80 - Crohn's disease of both small and large intestine without complications (2) Anemia Current Visit: No Status: Acute Assessment and plan: Continue to monitor CBC and transfuse PRBC as needed. Qualifiers: Anemia type: unspecified type Qualified Code(s): D64.9 - Anemia, unspecified - Time Spent With Patient Total time spent is greater than 50% in coordination of care (as documented) at patient's floor/unit and/or counseling patient: - Subjective Interval history: Patient reports feeling slightly better this AM. He is resting in bed without acute complaint at this time. - Constitutional Vitals: Temp Pulse Resp BP Pulse Ox 99.1 F 97 16 136/72 97 05/26/18 11:33 05/26/18 11:33 05/26/18 11:33 05/26/18 11:33 05/26/18 11:33 General appearance: Present: cooperative, A&O X 3, no acute distress, answers questions appropriately - Head Head exam: Present: atraumatic, normocephalic - Eye Eye exam: Present: normal appearance, sclera anicteric - ENT ENT exam: Present: mucous membranes moist - Neck Neck exam general surgery: Present: normal inspection, trachea midline - Respiratory Respiratory exam: Present: CTAB. Absent: rales, rhonchi - Cardiovascular Cardiovascular exam: Present: RRR, +S1, +S2 - GI/Abdominal GI/Abdominal exam: Present: soft, no peritoneal signs. Absent: distended, firm , guarding, tenderness - Rectal Rectal exam: Present: deferred - Extremities Exam Extremities exam: Present: warm - Neurological Exam Neurological exam: Present: no focal deficits - Psychiatric Psychiatric exam: Present: normal affect, normal mood - Skin Skin exam: Present: dry, intact, normal color, warm Results - Labs CBC & Chem 7: 05/26/18 05:18 05/26/18 05:18 Labs: Last Result Calcium 8.1 mg/dL (8.6-10.3) L 05/26/18 05:18 Entire Visit Hgb 9.4 g/dL (12.9-16.9) L 05/26/18 05:18 Hct 29.0 % (37.5-50.1) L 05/26/18 05:18 PT 37.5 Seconds (9.4-12.1) H 05/26/18 05:18 - ABG ABG results: PT/INR, D-dimer PT 37.5 Seconds (9.4-12.1) H 05/26/18 05:18 Consult Discharge Plan - Plan Referrals: Nicolas Hagan MD [Primary Care Provider] - 06/02/18 8:30 am <Janae Quinn - Last Filed: 05/26/18 15:00> Date of Encounter: 05/26/18 - Time Spent With Patient Total time spent is greater than 50% in coordination of care (as documented) at patient's floor/unit and/or counseling patient: - Constitutional Vitals: Temp Pulse Resp BP Pulse Ox 99.1 F 97 16 136/72 97 05/26/18 11:33 05/26/18 11:33 05/26/18 11:33 05/26/18 11:33 05/26/18 11:33 Results - Labs CBC & Chem 7: 05/26/18 05:18 05/26/18 05:18 Labs: Last Result Calcium 8.1 mg/dL (8.6-10.3) L 05/26/18 05:18 Entire Visit Hgb 9.4 g/dL (12.9-16.9) L 05/26/18 05:18 Hct 29.0 % (37.5-50.1) L 05/26/18 05:18 PT 37.5 Seconds (9.4-12.1) H 05/26/18 05:18 - ABG ABG results: PT/INR, D-dimer PT 37.5 Seconds (9.4-12.1) H 05/26/18 05:18 - Attending Attestation I have personally performed a face to face evaluation on this patient. I have reviewed and agree with the care plan. History and Exam by me shows: Pt with Crohns and diarrhea. Also high INR due to being on coumadin. Abd marcin. A; Ch Diarrhea , due to Crohns vs post cholecystectomy diarrhea Rec: Colon out pt once INR < 1.5 , coming /tuesday
[2018-05-26 14:59] VITALS: BP 98/49
[2018-05-26] MEDS: Warfarin perPT PO SCH (16:58)
--- NOTE | 2018-05-26 18:43 | Discharge Summary ---
- NOTES TO OUTPATIENT PROVIDER Notes to Outpatient Provider: GI consulted will have colonsocopy as outpatient - INR 3.3 in hospital hold coumadin will check INR on Tue plan for colonoscopy or Tue. Seen by nephrology on bicarb dt metabolic acidosis monitor chem 7. patient abruptly stopped endocort- experienced hypotnesion -will resume endocort and have GI titrate off. Orders not resulted at time of discharge: Pending orders 05/24/18 20:30 Calprotectin, Fecal Routine 05/27/18 04:00 Prothrombin Time INR [COAG] AM 0400 05/28/18 04:00 Prothrombin Time INR [COAG] AM 0400 05/29/18 04:00 Prothrombin Time INR [COAG] AM 0400 Date of Encounter: 05/26/18 Time of Encounter: 18:38 - Discharge Diagnosis (1) Crohns disease Priority: Secondary Status: Acute Qualifiers: Gastrointestinal tract location: small and large intestine Digestive disease complication type: without complication Qualified Code(s): K50.80 - Crohn's disease of both small and large intestine without complications (2) Transient hypotension Priority: Primary Status: Acute (3) CKD (chronic kidney disease), stage III Priority: Secondary Status: Acute (4) Hypomagnesemia Priority: Secondary Status: Acute (5) Metabolic acidosis Priority: Secondary Status: Acute Hospital course: Mr. Bowers is a 72 year old male with a past medical hx of Crohns disease CKD HTN HLD presented to his PCP was found to have low BP 80/60 he was asymptomatic and advised to go to the ED . He has been experiencing transient hypotension - He had been admitted to this facility earlier in the month for viral gastritis. His HCTZ was discontinued and was still on lisinopril. He was also on entocort and was tapering off however he stopped taking it on his own and his last dose was on April 29 he has been taking this medication for many years . In the ED his bp was 97/57 rest of workup unremarkable however his mag was low and had lactic acid of 2.4 - During admission he was given IVF and started on bicarb orally dt metaolic acidosis. Nephrology was consulted as well as GI - cortisol level and ACTH stim test completed which where low. His bicarb level and kidney function improved- GI recommending colonoscopy however INR elevated- he will hold coumadin and have INR rechecked on [facility] will have colonoscopy Thur or Fri - I discussed case with Dr Valenzuela and reviewed lab work- patient was taking 3 3mg tablets daily - we will resume 2 3mg daily- we will have him follow up with Dr Quinn to continue taper- he will also follow up with nephrology and PCP. I did give him a prescription for sodium bicarb. I advised him to have his PT/INR, chem 7 check on Wed and to hold his coumadin. He verbalized understanding He is hemodynamically stable and ready for discharge. Discharge discussed with: patient - Time Spent with Patient Total time spent providing and/or coordinating discharge services: - Discharge Medications Prescriptions: Sodium Bicarbonate 650 mg PO BID #30 tablet Home Medications: Atorvastatin [Lipitor] 40 mg PO HS 07/01/17 [History] Cyanocobalamin (B-12) [Vitamin B12] 1,000 mcg IM QMONTH 07/01/17 [History] InFLIXimab [Remicade] 100 mg IVPB Q8W 07/01/17 [History] Multivit-Min/FA/Lycopen/Lutein [A Thru Z Select Multivit Tab] 1 tab PO DAILY [History] Potassium Chloride [Klor-Con 10] 10 meq PO 6XD 07/01/17 [History] Ondansetron ODT [Zofran ODT] 4 mg SL Q4HR PRN #10 tab.rapdis 05/12/18 [Rx] Metoprolol Succinate [Toprol Xl] 25 mg PO DAILY 05/16/18 [History] Ranitidine HCl [Acid Loader Technician] 150 mg PO HS 05/16/18 [History] Warfarin Sodium 0.5 mg PO MOWEFR 05/16/18 [History] Cholestyramine 2 gm PO QIDAC #10 powd.pack 05/18/18 [Rx] Lisinopril [Zestril] 10 mg PO DAILY #30 tablet 05/18/18 [Rx] Sodium Bicarbonate 650 mg PO BID #30 tablet 05/26/18 [Rx] Allergies/Adverse Reactions: 3 Allergy/AdvReac Type Severity Reaction Status Date / Time pravastatin AdvReac Joint Pain Verified 05/23/18 08:15 Sulfa (Sulfonamide AdvReac Weakness Verified 05/23/18 08:15 Antibiotics) Date of admission: 05/23/18 17:03 Primary care physician: Nicolas Hagan MD Consults: 05/23/18 17:23 Consult to Nephrology [CONS] Routine Consulting Provider: Kidney Betty/JESS/CHANELLE/SUZANNE Reason for Consult: metabolic acidosis - fluid loss hx of CKD Time Notified: 17:24 Call Completed: Yes 05/24/18 12:03 Consult to Gastroenterology [CONS] Routine Consulting Provider: Gastroenterology Betty Reason for Consult: weight loss poor appetite crohns disease Time Notified: 12:04 Call Completed: Yes Discharging clinician: Palak Enriquez Anticipated date of discharge: 05/26/18 - Constitutional Vitals: Temp Pulse Resp BP Pulse Ox 98.8 F 85 16 98/49 98 05/26/18 14:55 05/26/18 14:55 05/26/18 14:55 05/26/18 14:55 05/26/18 14:55 General appearance: Present: A&O X 3 - Head Head exam: Present: atraumatic, normocephalic - Eye Eye exam: Present: PERRL, conjuntiva pink, sclera anicteric Pupils: Present: PERRL - Neck Neck exam general surgery: Present: supple, trachea midline. Absent: lymphadenopathy - Respiratory Respiratory exam: Present: CTAB. Absent: accessory muscle use, rales, rhonchi, wheezes - Cardiovascular Cardiovascular exam: Present: RRR, +S1, +S2. Absent: diastolic murmur, gallop, rubs, systolic murmur - GI/Abdominal GI/Abdominal exam: Present: normal bowel sounds, soft, no peritoneal signs. Absent: distended, tenderness - Extremities Exam Extremities exam: Present: warm, radial pulses palpable and symmetrical. Absent : calf tenderness, cyanotic, pedal edema - Neurological Exam Neurological exam: Present: CN II-XII intact, oriented X3, no focal deficits. Absent: pronater drift, facial droop, speech deficit - Skin Skin exam: Present: dry, intact - Patient Status Disposition: Home, Self-Care Condition: Good Functional capacity at discharge: independent ambulation Overall status at discharge: patient is back to baseline - Discharge Instructions Instructions: Sodium Bicarbonate (By mouth) Follow Up With: Nicolas Hagan MD [Primary Care Provider] - 06/02/18 8:30 am Janae Quinn MD [Partnered Physician] - (The office will call you to schedule your colonoscopy.) - Diet and Activity Activity: increase activity as tolerated Diet: advance to your usual diet
== END 2018-05-26 19:47 | disposition home or self-care (01) | DRG 392 ==
LOC: 3BNU
PROVIDERS: ADMIT Internal Medicine; ATTEND Internal Medicine